=== PATIENT | male | born 1960 | race Caucasian/White ===

== ENCOUNTER 2018-08-19 10:14 | Inpatient (IN) | payer OTHER ==
--- NOTE | 2018-08-19 10:45 | ED ---
SOB HPI - General Chief Complaint: Shortness of Breath Stated Complaint: SOB Time Seen by Provider: 08/19/18 10:14 Source: patient, EMS, RN notes reviewed Mode of arrival: EMS Limitations: no limitations - History of Present Illness Initial Comments: This a 57-year-old male who was brought in from a nursing facility with complaints of shortness of breath decrease oral intake. He also states she's had dark urine no overt chest pain reported. He currently lives in a nursing facility for long-term rehab. MD Complaint: shortness of breath, cough - Related Data Home Medications Medication Instructions Recorded Confirmed Acetaminophen Tab [Tylenol Tab] 650 mg PO Q4H PRN 08/19/18 08/19/18 Albuterol Inhaler [Ventolin Hfa 2 puff INHALATION RT-Q6H PRN 08/19/18 08/19/18 Inhaler] Aspirin EC [Ecotrin] 325 mg PO DAILY@0900 08/19/18 08/19/18 Atorvastatin [Lipitor] 20 mg PO HS@2100 08/19/18 08/19/18 Cholecalciferol [Vitamin D3] 1,000 unit PO DAILY@0900 08/19/18 08/19/18 Docusate [Colace] 100 mg PO DAILY@0908/19/18 08/19/18 Ipratropium-Albuterol Nebulize 3 ml INHALATION RT-Q4H 08/19/18 08/19/18 [Duoneb 0.5 mg-3 mg/3 ml Soln] Ketoconazole 2% Shampoo [Nizoral] 1 applic TOPICAL TUSA 08/19/18 08/19/18 Lactulose 20 gm PO DAILY@0908/19/18 08/19/18 Magnesium Hydroxide [Milk of 2,400 mg PO DAILY PRN 08/19/18 08/19/18 Magnesia] Morphine Sulfate ER [Ms Contin] 15 mg PO Q8H 08/19/18 08/19/18 Mylanta Double Strength 10 ml PO Q4H PRN 08/19/18 08/19/18 Pantoprazole [Protonix] 40 mg PO DAILY@0600 08/19/18 08/19/18 QUEtiapine FUMARATE [SEROquel] 300 mg PO HS@2100 08/19/18 08/19/18 SUMAtriptan SUCCINATE [Imitrex] 100 mg PO Q24H PRN 08/19/18 08/19/18 Tamsulosin [Flomax] 0.4 mg PO HS@2100 08/19/18 08/19/18 clonazePAM [KlonoPIN] 0.5 mg PO Q8H PRN 08/19/18 08/19/18 predniSONE 5 mg PO DAILY@0900 08/19/18 08/19/18 Allergies Allergy/AdvReac Type Severity Reaction Status Date / Time No Known Allergies Allergy Unverified 08/19/18 10:30 Review of Systems ROS Statement: Those systems with pertinent positive or pertinent negative responses have been documented in the HPI. ROS Other: All systems not noted in ROS Statement are negative. Past Medical History Past Medical History: Atrial Fibrillation, COPD, Hyperlipidemia, Pneumonia History of Any Multi-Drug Resistant Organisms: None Reported Past Surgical History: Back Surgery Additional Past Surgical History / Comment(s): tracheostomy & removal Past Psychological History: Anxiety Smoking Status: Former smoker Past Alcohol Use History: None Reported Past Drug Use History: Marijuana General Exam - General Exam Comments Initial Comments: Is a well-developed sec appearing male who is awake and alert with some audible wheezing currently getting an updraft Limitations: no limitations General appearance: alert, in no apparent distress Head exam: Present: atraumatic, normocephalic, normal inspection Eye exam: Present: normal appearance, PERRL, EOMI. Absent: scleral icterus, conjunctival injection, periorbital swelling ENT exam: Present: mucous membranes dry Neck exam: Present: normal inspection. Absent: tenderness, meningismus, lymphadenopathy Respiratory exam: Present: wheezes, accessory muscle use, decreased breath sounds. Absent: respiratory distress, rales, rhonchi, stridor Cardiovascular Exam: Present: normal rhythm, tachycardia, normal heart sounds. Absent: systolic murmur, diastolic murmur, rubs, gallop, clicks GI/Abdominal exam: Present: soft, normal bowel sounds. Absent: distended, tenderness, guarding, rebound, rigid Extremities exam: Present: normal inspection, full ROM, normal capillary refill. Absent: tenderness, pedal edema, joint swelling, calf tenderness Back exam: Present: normal inspection Neurological exam: Present: alert, oriented X3, CN II-XII intact Psychiatric exam: Present: normal affect, normal mood Skin exam: Present: warm, dry, intact, normal color. Absent: rash Course Vital Signs 08/19/18 08/19/18 08/19/18 10:22 11:00 12:10 Temperature 97.9 F Pulse Rate 110 H 82 82 Respiratory 22 28 H 18 Rate Blood Pressure 144/110 149/100 143/95 O2 Sat by Pulse 98 99 100 Oximetry - Reevaluation(s) Reevaluation #1: 08/19/18 14:31 Evaluation finds patient still dyspneic and exertional he dyspneic. Medical Decision Making - Medical Decision Making Patient continues be short of breath in spite of medication. He also demonstrates evidence of pneumonia. He was given IV medication the emergency department given aggressive emergency department he was completely 1 upon arrival repeat was ordered. Patient will be admitted I did discuss case with Dr. Todd. - Lab Data Result diagrams: 08/19/18 10:40 08/19/18 10:40 Lab Results 08/19/18 08/19/18 08/19/18 Range/Units 10:40 10:40 10:40 WBC 8.0 (3.8-10.6) k/uL RBC 4.08 L (4.30-5.90) m/uL Hgb 12.3 L (13.0-17.5) gm/dL Hct 40.1 (39.0-53.0) % MCV 98.4 (80.0-100.0) fL MCH 30.2 (25.0-35.0) pg MCHC 30.7 L (31.0-37.0) g/dL RDW 13.0 (11.5-15.5) % Plt Count 313 (150-450) k/uL Neutrophils % 75 % Lymphocytes % 13 % Monocytes % 6 % Eosinophils % 2 % Basophils % 1 % Neutrophils # 6.0 (1.3-7.7) k/uL Lymphocytes # 1.1 (1.0-4.8) k/uL Monocytes # 0.5 (0-1.0) k/uL Eosinophils # 0.1 (0-0.7) k/uL Basophils # 0.1 (0-0.2) k/uL Hypochromasia Marked PT (9.0-12.0) sec INR (<1.2) APTT (22.0-30.0) sec Sodium 144 (137-145) mmol/L Potassium 5.0 (3.5-5.1) mmol/L Chloride 94 L (98-107) mmol/L Carbon Dioxide 41 H* (22-30) mmol/L Anion Gap 9 mmol/L BUN 14 (9-20) mg/dL Creatinine 0.47 L (0.66-1.25) mg/dL Est GFR (CKD-EPI)AfAm >90 (>60 ml/min/1.73 sqM) Est GFR (CKD-EPI)NonAf >90 (>60 ml/min/1.73 sqM) Glucose 157 H (74-99) mg/dL Calcium 9.0 (8.4-10.2) mg/dL Magnesium 1.9 (1.6-2.3) mg/dL Total Bilirubin 0.8 (0.2-1.3) mg/dL AST 27 (17-59) U/L ALT 20 L (21-72) U/L Alkaline Phosphatase 92 (38-126) U/L Total Creatine Kinase 47 L (55-170) U/L CK-MB (CK-2) 1.0 (0.0-2.4) ng/mL CK-MB (CK-2) Rel Index 2.1 Troponin I 0.027 (0.000-0.034) ng/mL NT-Pro-B Natriuret Pep pg/mL Total Protein 6.7 (6.3-8.2) g/dL Albumin 3.5 (3.5-5.0) g/dL 08/19/18 08/19/18 Range/Units 10:40 10:40 WBC (3.8-10.6) k/uL RBC (4.30-5.90) m/uL Hgb (13.0-17.5) gm/dL Hct (39.0-53.0) % MCV (80.0-100.0) fL MCH (25.0-35.0) pg MCHC (31.0-37.0) g/dL RDW (11.5-15.5) % Plt Count (150-450) k/uL Neutrophils % % Lymphocytes % % Monocytes % % Eosinophils % % Basophils % % Neutrophils # (1.3-7.7) k/uL Lymphocytes # (1.0-4.8) k/uL Monocytes # (0-1.0) k/uL Eosinophils # (0-0.7) k/uL Basophils # (0-0.2) k/uL Hypochromasia PT 11.0 (9.0-12.0) sec INR 1.0 (<1.2) APTT 22.6 (22.0-30.0) sec Sodium (137-145) mmol/L Potassium (3.5-5.1) mmol/L Chloride (98-107) mmol/L Carbon Dioxide (22-30) mmol/L Anion Gap mmol/L BUN (9-20) mg/dL Creatinine (0.66-1.25) mg/dL Est GFR (CKD-EPI)AfAm (>60 ml/min/1.73 sqM) Est GFR (CKD-EPI)NonAf (>60 ml/min/1.73 sqM) Glucose (74-99) mg/dL Calcium (8.4-10.2) mg/dL Magnesium (1.6-2.3) mg/dL Total Bilirubin (0.2-1.3) mg/dL AST (17-59) U/L ALT (21-72) U/L Alkaline Phosphatase (38-126) U/L Total Creatine Kinase (55-170) U/L CK-MB (CK-2) (0.0-2.4) ng/mL CK-MB (CK-2) Rel Index Troponin I (0.000-0.034) ng/mL NT-Pro-B Natriuret Pep 268 pg/mL Total Protein (6.3-8.2) g/dL Albumin (3.5-5.0) g/dL - EKG Data -: EKG Interpreted by De EKG shows normal: sinus rhythm (Sinus rhythm with PACs NC interval 128 QRS duration 92 the ventricular rate was 89 QT since QTC 350/425 left exodeviation incomplete right bundle-branch block) - Radiology Data Radiology results: report reviewed (I did review the imaging and report evidence of bilateral basilar infiltrates.), image reviewed Critical Care Time Critical Care Time: Yes Critical Care Time: 33 minutes of critical care time total which does include initial presentation with history physical labs x-rays discussed with paramedics regarding the treatment rendered. Reevaluation of the patient several occasions. Review of labs and x-rays discussed with the admitting physician review of old charting and documentation of the above Disposition Clinical Impression: Acute exacerbation of chronic obstructive airways disease, Adult respiratory distress syndrome, Bilateral pneumonia Disposition: ADMITTED IP TO THIS HOSP Condition: Serious Referrals: Cortez Todd MD [Primary Care Provider] - 1-2 days
[2018-08-19] MEDS ORDERED: SODIUM CHLORIDE 0.9% 1,000 ML IV STA (10:49)
[2018-08-19 11:07] LABS: Basophils # (A) 0.1 k/uL (0-0.2); Basophils % (A) 1 %; Eosinophils # (A) 0.1 k/uL (0-0.7); Eosinophils % (A) 2 %; HCT 40.1 % (39.0-53.0); HGB 12.3 gm/dL (13.0-17.5); Hypochromasia Marked; Lymphocytes # (A) 1.1 k/uL (1.0-4.8); Lymphocytes % (A) 13 %; MCH 30.2 pg (25.0-35.0); MCHC 30.7 g/dL (31.0-37.0); MCV 98.4 fL (80.0-100.0); Mean Platelet Volume 7.2; Monocytes # (A) 0.5 k/uL (0-1.0); Monocytes % (A) 6 %; Neutrophils % (A) 75 %; Platelet Count 313 k/uL (150-450); RBC 4.08 m/uL (4.30-5.90)
--- NOTE | 2018-08-19 11:11 | XR ---
EXAMINATION TYPE: XR chest 2V DATE OF EXAM: 08/19/2018 COMPARISON: 10/28/2009 HISTORY: Difficulty breathing history of emphysema TECHNIQUE: Frontal and lateral views of the chest are obtained. FINDINGS: There is hyperinflation flattening the diaphragms compatible COPD. Patchy bibasilar infilt rates are present, likely on the basis of atelectasis. Bibasilar pneumonia could be considered. Follo w-up is recommended and correlation with clinical findings is recommended. The heart size is normal. Pulmonary vasculature is normal. IMPRESSION: 1. Bibasilar infiltrates. Atelectasis and pneumonia are within the differential. Clinical correlation and follow-up is recommended. 2. COPD
[2018-08-19] MEDS ORDERED: KETOROLAC 30 MG/ML 1 ML VIAL IVP STA (11:22)
[2018-08-19 11:29] LABS: ALT 20 U/L (21-72); AST 27 U/L (17-59); Albumin 3.5 g/dL (3.5-5.0); Alkaline Phosphatase 92 U/L (38-126); Blood Urea Nitrogen 14 mg/dL (9-20); Chloride 94 mmol/L (98-107); Glucose 157 mg/dL (74-99); Magnesium 1.9 mg/dL (1.6-2.3); Sodium 144 mmol/L (137-145); Total Bilirubin 0.8 mg/dL (0.2-1.3); Total Protein 6.7 g/dL (6.3-8.2)
[2018-08-19 11:31] LABS: Partial Thromboplastin Time 22.6 sec (22.0-30.0)
[2018-08-19 11:35] LABS: Anion Gap 9 mmol/L
[2018-08-19 11:38] LABS: Carbon Dioxide 41 mmol/L (22-30)
[2018-08-19 11:43] LABS: Troponin I 0.027 ng/mL (0.000-0.034)
[2018-08-19] MEDS ORDERED: PIPERACILLIN-TAZOBACTAM 3.375 GM in SODIUM CHLORIDE 0.9% 100 ML IVPB STA (14:08)
[2018-08-19] MEDS ORDERED: ACETAMINOPHEN TAB 500 MG TAB PO STA (14:28)
[2018-08-19] MEDS ORDERED: IPRATROPIUM-ALBUTEROL 3 ML NEB INHALATION STA ×2 (14:29→14:32)
[2018-08-19] MEDS ORDERED: MAGNESIUM SULFATE-D5W PMX 1 GM in DEXTROSE/WATER 1 100ML.BAG IVPB ONE (14:29)
[2018-08-19] MEDS ORDERED: PNEUMONIA PROTOCOL UTILIZED 1 EACH MISC PO PRN (14:34)
[2018-08-19] MEDS ORDERED: LEVOFLOXACIN 750MG-D5W PMX 750 MG in DEXTROSE/WATER 1 150ML.BAG IVPB STA (14:34)
[2018-08-19] MEDS ORDERED: MAG HYDROX/AL HYDROX/SIMETH 30 ML CUP PO PRN (14:39)
[2018-08-19] MEDS ORDERED: MAGNESIUM HYDROXIDE 2,400 MG/10 ML CUP PO PRN (14:39)
[2018-08-19] MEDS ORDERED: ACETAMINOPHEN TAB 325 MG TAB PO PRN (14:39)
[2018-08-19] MEDS: MORPHINE SULFATE ER 15 MG TABLET PO SCH (17:17)
[2018-08-19] MEDS: clonazePAM 0.5 MG TAB PO PRN (17:17)
[2018-08-19 17:36] VITALS: BMI 26.7
[2018-08-19] MEDS: IPRATROPIUM-ALBUTEROL 3 ML NEB INHALATION SCH ×3 (19:22→23:37)
[2018-08-19] MEDS: ATORVASTATIN 20 MG TAB PO SCH (20:27)
[2018-08-19] MEDS: TAMSULOSIN 0.4 MG CAP.ER.24H PO SCH (20:27)
[2018-08-19] MEDS: QUEtiapine 100 MG TAB PO SCH (20:27)
[2018-08-19] MEDS: PIPERACILLIN-TAZOBACTAM 3.375 GM in SODIUM CHLORIDE 0.9% 100 ML IVPB SCH (23:47)
[2018-08-20] MEDS: IPRATROPIUM-ALBUTEROL 3 ML NEB INHALATION SCH ×5 (03:31→19:41)
[2018-08-20] MEDS: MORPHINE SULFATE ER 15 MG TABLET PO SCH ×4 (03:55→23:11)
[2018-08-20] MEDS: PANTOPRAZOLE 40 MG TABLET PO SCH (06:31)
--- NOTE | 2018-08-20 07:10 | XR ---
EXAMINATION TYPE: XR chest 2V DATE OF EXAM: 08/20/2018 COMPARISON: 08/19/2018 HISTORY: Difficulty breathing. TECHNIQUE: Frontal and lateral views of the chest are obtained. FINDINGS: There is near complete resolution of the left basilar probable subsegmental atelectasis ho wever a right lower lobe opacity remains on both the frontal and lateral views. Pulmonary per inflati on, flattening the diaphragms and tapering of the pulmonary vasculature are all compatible with under lying COPD. Cardiomediastinal silhouette is within normal limits of size. Osseous structures are krissy sly intact. IMPRESSION: Similar right lower lobe opacity suspicious for pneumonia with near complete resolution of the left basilar subsegmental atelectasis with extensive underlying emphysema.
[2018-08-20] MEDS: ASPIRIN 325 MG TAB PO SCH (07:47)
[2018-08-20] MEDS: PIPERACILLIN-TAZOBACTAM 3.375 GM in SODIUM CHLORIDE 0.9% 100 ML IVPB SCH ×3 (07:47→23:11)
[2018-08-20] MEDS: CHOLECALCIFEROL 1,000 UNIT TAB PO SCH (07:48)
[2018-08-20] MEDS: LACTULOSE 20 GM/30 ML CUP PO SCH (07:48)
[2018-08-20] MEDS: DOCUSATE 100 MG CAP PO SCH (07:48)
[2018-08-20 10:10] LABS: ALT 25 U/L (21-72); AST 15 U/L (17-59); Alkaline Phosphatase 78 U/L (38-126); Blood Urea Nitrogen 19 mg/dL (9-20); Calcium 8.7 mg/dL (8.4-10.2); Chloride 95 mmol/L (98-107); Glucose 143 mg/dL (74-99); Magnesium 2.1 mg/dL (1.6-2.3); Potassium 4.2 mmol/L (3.5-5.1); Sodium 144 mmol/L (137-145); Total Bilirubin 0.4 mg/dL (0.2-1.3); Total Protein 5.6 g/dL (6.3-8.2)
[2018-08-20 10:16] LABS: Anion Gap 4 mmol/L
[2018-08-20 10:18] LABS: Carbon Dioxide 45 mmol/L (22-30)
[2018-08-20] MEDS: SUMAtriptan SUCCINATE 50 MG TAB PO PRN (12:23)
--- NOTE | 2018-08-20 12:26 | P.HPIM ---
History of Present Illness H&P Date: 08/20/18 Chief Complaint: Short of breath This is a 57-year-old white male patient well known to me. He has severe COPD that's oxygen dependent. He lives over at [facility] on the [facility]. He reports that he was there are having a malfunction of his OxyContin straight or, at the staff insisted they keep using that. He reports that he desaturated down to 60%. He also reports that he's been sick with increasing cough and shortness of breath lately. He was sent to the emergency room for further evaluation after being more short of breath. He was started on Levaquin and Zosyn. This morning, he denies any chest pains, pressures, nausea or vomiting. He had a large stool today but he had been constipated over the past few days. His shortness of breath he says is stable and improved from 1 day ago. 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 Smoking Status: Former smoker Past Alcohol Use History: None Reported Past Drug Use History: Marijuana - Past Family History Mother Family Medical History: COPD Medications and Allergies Home Medications Medication Instructions Recorded Confirmed Type Acetaminophen Tab [Tylenol Tab] 650 mg PO Q4H PRN 08/19/18 08/19/18 History Albuterol Inhaler [Ventolin Hfa 2 puff INHALATION RT-Q6H PRN 08/19/18 08/19/18 History Inhaler] Aspirin EC [Ecotrin] 325 mg PO DAILY@0900 08/19/18 08/19/18 History Atorvastatin [Lipitor] 20 mg PO HS@2100 08/19/18 08/19/18 History Cholecalciferol [Vitamin D3] 1,000 unit PO DAILY@0900 08/19/18 08/19/18 History Docusate [Colace] 100 mg PO DAILY@0900 08/19/18 08/19/18 History Ipratropium-Albuterol Nebulize 3 ml INHALATION RT-Q4H 08/19/18 08/19/18 History [Duoneb 0.5 mg-3 mg/3 ml Soln] Ketoconazole 2% Shampoo [Nizoral] 1 applic TOPICAL TUSA 08/19/18 08/19/18 History Lactulose 20 gm PO DAILY@0900 08/19/18 08/19/18 History Magnesium Hydroxide [Milk of 2,400 mg PO DAILY PRN 08/19/18 08/19/18 History Magnesia] Morphine Sulfate ER [Ms Contin] 15 mg PO Q8H 08/19/18 08/19/18 History Mylanta Double Strength 10 ml PO Q4H PRN 08/19/18 08/19/18 History Pantoprazole [Protonix] 40 mg PO DAILY@0600 08/19/18 08/19/18 History QUEtiapine FUMARATE [SEROquel] 300 mg PO HS@2100 08/19/18 08/19/18 History SUMAtriptan SUCCINATE [Imitrex] 100 mg PO Q24H PRN 08/19/18 08/19/18 History Tamsulosin [Flomax] 0.4 mg PO HS@2100 08/19/18 08/19/18 History clonazePAM [KlonoPIN] 0.5 mg PO Q8H PRN 08/19/18 08/19/18 History predniSONE 5 mg PO DAILY@0900 08/19/18 08/19/18 History Allergies Allergy/AdvReac Type Severity Reaction Status Date / Time No Known Allergies Allergy Verified 08/19/18 17:25 Physical Exam Vitals: Vital Signs Temp Pulse Pulse Pulse Resp BP BP 08/20/18 11:26 76 08/20/18 11:15 76 08/20/18 07:50 16 08/20/18 07:46 92 08/20/18 07:33 92 08/20/18 05:35 98.5 F 91 24 117/75 08/20/18 03:42 76 08/20/18 03:32 76 08/19/18 23:55 98.1 F 81 22 125/79 08/19/18 23:47 72 08/19/18 23:37 71 08/19/18 20:31 20 08/19/18 19:33 84 08/19/18 19:22 80 08/19/18 16:39 98.2 F 87 18 143/97 08/19/18 16:00 98.0 F 80 18 143/86 08/19/18 15:59 84 08/19/18 15:49 80 08/19/18 15:00 98.1 F 77 18 137/92 Pulse Ox 08/20/18 11:26 08/20/18 11:15 08/20/18 07:50 08/20/18 07:46 08/20/18 07:33 08/20/18 05:35 95 08/20/18 03:42 08/20/18 03:32 08/19/18 23:55 95 08/19/18 23:47 08/19/18 23:37 08/19/18 20:31 95 08/19/18 19:33 08/19/18 19:22 08/19/18 16:39 90 L 08/19/18 16:00 95 08/19/18 15:59 08/19/18 15:49 08/19/18 15:00 98 Intake and Output 08/19/18 08/20/18 08/20/18 22:59 06:59 14:59 Intake Total 100 Output Total 300 Balance -300 100 Intake: Oral 100 Output: Urine 300 Other: Voiding Method Bedside Commode Urinal # Voids 2 Weight 77.564 kg GENERAL: Thin and no obvious distress at this time HEAD: Atraumatic, normocephalic. EYES: Pupils equal round and reactive to light, extraocular movements intact, sclera anicteric, conjunctiva are normal. ENT:nares patent, oropharynx clear without exudates. Moist mucous membranes. NECK: Normal range of motion, supple without lymphadenopathy or JVD, no thyromegaly LUNGS: Breath sounds worse with severely diminished air exchange bilaterally consistent with his underlying COPD. Minimal wheezes noted today. This is a new finding. HEART: Regular rate and rhythm without murmurs, rubs or gallops.S1S2 Normal ABDOMEN: Soft, nontender, normoactive bowel sounds. No guarding, no rebound. No masses appreciated. EXTREMITIES: Normal range of motion, no pitting or edema. No clubbing or cyanosis. NEUROLOGICAL: Cranial nerves II through XII grossly intact. Normal speech, normal gait. PSYCH: Normal mood, normal affect. SKIN: Warm, Dry, normal turgor, no rashes or lesions noted. Results CBC & Chem 7: 08/19/18 10:40 08/20/18 09:27 Labs: Abnormal Lab Results - Last 24 Hours (Table) 08/20/18 Range/Units 09:27 Chloride 95 L (98-107) mmol/L Carbon Dioxide 45 H* (22-30) mmol/L Creatinine 0.65 L (0.66-1.25) mg/dL Glucose 143 H (74-99) mg/dL AST 15 L (17-59) U/L Total Protein 5.6 L (6.3-8.2) g/dL Albumin 3.0 L (3.5-5.0) g/dL Chest x-ray: report reviewed (Similar right lower lobe opacity suspicious for pneumonia with near complete resolution of the left basilar subsegmental atelectasis and extensive emphysema) Thrombosis Risk Factor Assmnt - DVT/VTE Prophylaxis DVT/VTE Prophylaxis: Mechanical Prophylaxis ordered - Choose All That Apply Each Factor Represents 1 point: Abnormal pulmonary function (COPD), Age 41-60 years Thrombosis Risk Factor Assessment Total Risk Factor Score: 2 Thrombosis Risk Factor Assessment Level: Low Risk Assessment and Plan (1) Atrial fibrillation Current Visit: Yes Status: Acute Code(s): I48.91 - UNSPECIFIED ATRIAL FIBRILLATION SNOMED Code(s): 67912345 (2) Oxygen dependent Current Visit: Yes Status: Acute Code(s): Z99.81 - DEPENDENCE ON SUPPLEMENTAL OXYGEN SNOMED Code(s): 882289239933 (3) Steroid dependent Current Visit: Yes Status: Acute Code(s): TBS8364 - SNOMED Code(s): 78688393 (4) Anxiety Current Visit: Yes Status: Acute Code(s): F41.9 - ANXIETY DISORDER, UNSPECIFIED SNOMED Code(s): 52044413 (5) Acute exacerbation of chronic obstructive airways disease Current Visit: Yes Status: Acute Code(s): J44.1 - CHRONIC OBSTRUCTIVE PULMONARY DISEASE W (ACUTE) EXACERBATION SNOMED Code(s): 987385372 (6) Adult respiratory distress syndrome Current Visit: Yes Status: Acute Code(s): J80 - ACUTE RESPIRATORY DISTRESS SYNDROME SNOMED Code(s): 32340965 (7) Bilateral pneumonia Current Visit: Yes Status: Acute Code(s): J18.9 - PNEUMONIA, UNSPECIFIED ORGANISM SNOMED Code(s): 641770061 (8) Hypoxemia Current Visit: Yes Status: Acute Code(s): R09.02 - HYPOXEMIA SNOMED Code(s ): 257625757 Plan: He'll continue on his oxygen, Zosyn, Levaquin, restart steroids, consult, neurology and continue updraft treatments of DuoNeb. Repeat The labs in a.m. He will be reevaluated in 24 hours. .
[2018-08-20] MEDS: FAMOTIDINE 20 MG TAB PO SCH (13:14)
[2018-08-20] MEDS: LEVOFLOXACIN 750 MG TAB PO SCH (16:00)
--- NOTE | 2018-08-20 16:15 | P.CNPUL ---
History of Present Illness Consult date: 08/20/18 Requesting physician: Cortez Todd Reason for consult: dyspnea, cough, COPD, pneumonia, abnormal CXR/CT Chief complaint: Shortness of breath, decreased oral intake, History of present illness: This is a 57-year-old white male patient of Dr. Todd, with past medical history of severe COPD, stage IV, with chronic hypoxemic respiratory failure, with a baseline FEV1 of 0.54 L or 16% of predicted, and the diffusion capacity of 24% of predicted, chronic atrial fibrillation, hyperlipidemia, previous episodes of pneumonia, BPH, anxiety, former smoker. Patient resides in the long -term care [facility], [facility]. Patient was brought into the emergency department on 08/19/2018 per EMS for evaluation of increasing shortness of breath, cough, decreased oral intake. Patient had the noted to have concentrated urine. No chest pain. Patient was in significant amount of respiratory distress on presentation, quite bronchospastic, using accessory muscles of breathing. Initial chest x-ray showed bibasilar infiltrates, could not exclude pneumonia, a background of COPD. Follow-up chest x-ray on 2018 showed similar right lower lobe opacity suspicious for pneumonia with near complete resolution of the left basilar subsegmental atelectasis with extensive underlying emphysema. Afebrile, labs were negative for leukocytosis, white blood cell count was 8.0, hemoglobin is 12.3, sodium is 144, potassium is 5.0, chloride is 94, CO2 is 41, B1 is 14 and creatinine 0.47, troponin was 0.0-7, proBNP was within normal limits at 268, influenza was negative. Patient was started on empiric antibiotics in the form of Levaquin and Zosyn, nebulized bronchodilators, and this consult was initiated. Review of Systems All systems: negative Constitutional: Denies chills, Denies fever Eyes: denies blurred vision, denies pain Ears, nose, mouth and throat: Denies headache, Denies sore throat Cardiovascular: Reports dyspnea on exertion, Denies chest pain, Denies shortness of breath Respiratory: Reports congestion, Reports dyspnea, Reports home oxygen, Reports respiratory infections, Reports wheezing, Denies cough Gastrointestinal: Denies abdominal pain, Denies diarrhea, Denies nausea, Denies vomiting Musculoskeletal: Denies myalgias Integumentary: Denies pruritus, Denies rash Neurological: Denies numbness, Denies weakness Psychiatric: Denies anxiety, Denies depression Endocrine: Denies fatigue, Denies weight change Past Medical History Past Medical History: Atrial Fibrillation, COPD (Severe, oxygen and steroid dependent end-stage), Hyperlipidemia, Pneumonia, Prostate Disorder (BPH) History of Any Multi-Drug Resistant Organisms: None Reported Past Surgical History: Back Surgery Additional Past Surgical History / Comment(s): tracheostomy & removal Past Anesthesia/Blood Transfusion Reactions: No Reported Reaction Past Psychological History: Anxiety Additional Psychological History / Comment(s): Lives in [facility] Smoking Status: Former smoker Past Alcohol Use History: None Reported Past Drug Use History: Marijuana - Past Family History Mother Family Medical History: COPD Medications and Allergies Home Medications Medication Instructions Recorded Confirmed Type Acetaminophen Tab [Tylenol Tab] 650 mg PO Q4H PRN 08/19/18 08/19/18 History Albuterol Inhaler [Ventolin Hfa 2 puff INHALATION RT-Q6H PRN 08/19/18 08/19/18 History Inhaler] Aspirin EC [Ecotrin] 325 mg PO DAILY@0900 08/19/18 08/19/18 History Atorvastatin [Lipitor] 20 mg PO HS@2100 08/19/18 08/19/18 History Cholecalciferol [Vitamin D3] 1,000 unit PO DAILY@0900 08/19/18 08/19/18 History Docusate [Colace] 100 mg PO DAILY@0900 08/19/18 08/19/18 History Ipratropium-Albuterol Nebulize 3 ml INHALATION RT-Q4H 08/19/18 08/19/18 History [Duoneb 0.5 mg-3 mg/3 ml Soln] Ketoconazole 2% Shampoo [Nizoral] 1 applic TOPICAL TUSA 08/19/18 08/19/18 History Lactulose 20 gm PO DAILY@0900 08/19/18 08/19/18 History Magnesium Hydroxide [Milk of 2,400 mg PO DAILY PRN 08/19/18 08/19/18 History Magnesia] Morphine Sulfate ER [Ms Contin] 15 mg PO Q8H 08/19/18 08/19/18 History Mylanta Double Strength 10 ml PO Q4H PRN 08/19/18 08/19/18 History Pantoprazole [Protonix] 40 mg PO DAILY@0600 08/19/18 08/19/18 History QUEtiapine FUMARATE [SEROquel] 300 mg PO HS@2100 08/19/18 08/19/18 History SUMAtriptan SUCCINATE [Imitrex] 100 mg PO Q24H PRN 08/19/18 08/19/18 History Tamsulosin [Flomax] 0.4 mg PO HS@2100 08/19/18 08/19/18 History clonazePAM [KlonoPIN] 0.5 mg PO Q8H PRN 08/19/18 08/19/18 History predniSONE 5 mg PO DAILY@0900 08/19/18 08/19/18 History Allergies Allergy/AdvReac Type Severity Reaction Status Date / Time No Known Allergies Allergy Verified 08/19/18 17:25 Physical Exam Vitals: Vital Signs Temp Pulse Pulse Pulse Resp BP BP 08/20/18 15:46 88 08/20/18 15:30 88 08/20/18 15:00 97.4 F L 86 22 100/72 08/20/18 11:26 76 08/20/18 11:15 76 08/20/18 07:50 16 08/20/18 07:46 92 08/20/18 07:33 92 08/20/18 05:35 98.5 F 91 24 117/75 08/20/18 03:42 76 08/20/18 03:32 76 08/19/18 23:55 98.1 F 81 22 125/79 08/19/18 23:47 72 08/19/18 23:37 71 08/19/18 20:31 20 08/19/18 19:33 84 08/19/18 19:22 80 08/19/18 16:39 98.2 F 87 18 143/97 08/19/18 16:00 98.0 F 80 18 143/86 08/19/18 15:59 84 Pulse Ox 08/20/18 15:46 08/20/18 15:30 08/20/18 15:00 100 08/20/18 11:26 08/20/18 11:15 08/20/18 07:50 08/20/18 07:46 08/20/18 07:33 08/20/18 05:35 95 08/20/18 03:42 08/20/18 03:32 08/19/18 23:55 95 08/19/18 23:47 08/19/18 23:37 08/19/18 20:31 95 08/19/18 19:33 08/19/18 19:22 08/19/18 16:39 90 L 08/19/18 16:00 95 08/19/18 15:59 Intake and Output 08/20/18 08/20/18 08/20/18 06:59 14:59 22:59 Intake Total 100 320 Balance 100 320 Intake: Oral 100 320 Other: Voiding Method Urinal Urinal # Voids 2 1 # Bowel Movements 1 GENERAL EXAM: Alert, pleasant, 57-year-old white male, on 4 L per nasal cannula comfortable in no apparent distress. HEAD: Normocephalic/atraumatic. EYES: Normal reaction of pupils, equal size. Conjunctiva pink, sclera white. NOSE: Clear with pink turbinates. THROAT: No erythema or exudates. NECK: No masses, no JVD, no thyroid enlargement, no adenopathy. CHEST: No chest wall deformity. Symmetrical expansion. LUNGS: Equal air entry with no crackles, with end expiratory wheezes, diminished breath sounds bilaterally CVS: Regular rate and rhythm, normal S1 and S2, no gallops, no murmurs, no rubs ABDOMEN: Soft, nontender. No hepatosplenomegaly, normal bowel sounds, no guarding or rigidity. EXTREMITIES: No clubbing, no edema, no cyanosis, 2+ pulses and upper and lower extremities. MUSCULOSKELETAL: Muscle strength and tone normal. SPINE: No scoliosis or deformity SKIN: No rashes CENTRAL NERVOUS SYSTEM: Alert and oriented -3. No focal deficits, tone is normal in all 4 extremities. PSYCHIATRIC: Alert and oriented -3. Appropriate affect. Intact judgment and insight. Results - Laboratory Findings CBC and BMP: 08/19/18 10:40 08/20/18 09:27 PT/INR, D-dimer PT 11.0 sec (9.0-12.0) 08/19/18 10:40 INR 1.0 (<1.2) 08/19/18 10:40 Abnormal lab findings: Abnormal Labs 08/19/18 08/19/18 08/19/18 10:40 10:40 10:40 RBC 4.08 L Hgb 12.3 L MCHC 30.7 L Chloride 94 L Carbon Dioxide 41 H* Creatinine 0.47 L Glucose 157 H AST ALT 20 L Total Creatine Kinase 47 L Total Protein Albumin 08/20/18 09:27 RBC Hgb MCHC Chloride 95 L Carbon Dioxide 45 H* Creatinine 0.65 L Glucose 143 H AST 15 L ALT Total Creatine Kinase Total Protein 5.6 L Albumin 3.0 L - Diagnostic Findings Chest x-ray: report reviewed, image reviewed Additional studies: EKG reviewed Assessment and Plan Plan: Assessment: #1. Acute on chronic hypoxemic and hypercapnic respiratory failure related to COPD exacerbation related to a possibility of healthcare acquired pneumonia, chest x-ray showed bibasilar infiltrates suspicious for pneumonia. #2. End-stage oxygen-dependent and steroid-dependent COPD, stage IV, with underlying FEV1 of 0.54 L or 60% of predicted, and diffusion capacity of 24% #3. History of paroxysmal atrial fibrillation, currently in sinus rhythm #4. Nicotine dependence, currently in remission #5. Previous episodes of pneumonia #6. PTH #7. Hyperlipidemia #8. History of ventilatory dependent respiratory failure requiring tracheostomy placement, and patient had liberation from ventilatory support, and decannulation #9. Anxiety #10. Resident of the extended care facility, lives at the [facility] on the [facility] Plan: Continue current antibiotic coverage, send a sputum for culture, currently afebrile, in no apparent distress, continue nebulized treatments, we will add Solu-Medrol 40 mg every 8 hours. Chest x-rays have been reviewed with Dr. Pugh, showed bibasilar infiltrates right greater than the left, suspicious for pneumonic infiltrates. Continue GI and DVT prophylaxis I performed a history & physical examination of the patient and discussed their management with my nurse practitioner, Cynthia Stacy. I reviewed the nurse practitioner's note and agree with the documented findings and plan of care. Lung sounds are positive for end expiratory wheezes, diminished breath sounds, prolongation of expiratory phase. The findings and the impression was discussed with the patient. I attest to the documentation by the nurse practitioner. Time with Patient: Greater than 30
[2018-08-20] MEDS: methylPREDNISolone SOD SUCCI 40 MG/ML 1 ML VIAL IV SCH ×2 (16:26→23:10)
[2018-08-20] MEDS: QUEtiapine 100 MG TAB PO SCH (20:26)
[2018-08-20] MEDS: TAMSULOSIN 0.4 MG CAP.ER.24H PO SCH (20:27)
[2018-08-20] MEDS: ATORVASTATIN 20 MG TAB PO SCH (20:27)
[2018-08-20] MEDS: clonazePAM 0.5 MG TAB PO PRN (20:32)
[2018-08-20 23:11] LABS: Glucose,Whole Blood 157 mg/dL (75-99)
[2018-08-21] MEDS: IPRATROPIUM-ALBUTEROL 3 ML NEB INHALATION SCH ×7 (00:33→23:39)
[2018-08-21] MEDS: PANTOPRAZOLE 40 MG TABLET PO SCH (05:31)
[2018-08-21] MEDS: FAMOTIDINE 20 MG TAB PO SCH (07:37)
[2018-08-21] MEDS: PIPERACILLIN-TAZOBACTAM 3.375 GM in SODIUM CHLORIDE 0.9% 100 ML IVPB SCH ×2 (07:37→16:27)
[2018-08-21] MEDS: methylPREDNISolone SOD SUCCI 40 MG/ML 1 ML VIAL IV SCH ×2 (07:37→16:27)
[2018-08-21] MEDS: DOCUSATE 100 MG CAP PO SCH (07:37)
[2018-08-21] MEDS: LACTULOSE 20 GM/30 ML CUP PO SCH (07:37)
[2018-08-21] MEDS: ASPIRIN 325 MG TAB PO SCH (07:37)
[2018-08-21] MEDS: CHOLECALCIFEROL 1,000 UNIT TAB PO SCH (07:37)
[2018-08-21] MEDS: MORPHINE SULFATE ER 15 MG TABLET PO SCH ×2 (07:37→16:27)
[2018-08-21 09:28] LABS: Basophils % (A) 0 %; Eosinophils % (A) 0 %; HCT 38.3 % (39.0-53.0); HGB 11.5 gm/dL (13.0-17.5); Hypochromasia Marked; Lymphocytes # (A) 0.5 k/uL (1.0-4.8); Lymphocytes % (A) 8 %; MCH 30.4 pg (25.0-35.0); MCHC 29.9 g/dL (31.0-37.0); MCV 101.7 fL (80.0-100.0); Mean Platelet Volume 7.3; Monocytes # (A) 0.4 k/uL (0-1.0); Monocytes % (A) 6 %; Neutrophils # (A) 5.5 k/uL (1.3-7.7); Neutrophils % (A) 84 %; Platelet Count 336 k/uL (150-450); RBC 3.77 m/uL (4.30-5.90); RDW 13.1 % (11.5-15.5); WBC 6.6 k/uL (3.8-10.6)
[2018-08-21 09:44] LABS: ALT 24 U/L (21-72); AST 11 U/L (17-59); Albumin 3.1 g/dL (3.5-5.0); Alkaline Phosphatase 75 U/L (38-126); Blood Urea Nitrogen 21 mg/dL (9-20); Calcium 8.7 mg/dL (8.4-10.2); Chloride 95 mmol/L (98-107); Glucose 145 mg/dL (74-99); Magnesium 2.2 mg/dL (1.6-2.3); Potassium 4.5 mmol/L (3.5-5.1); Sodium 145 mmol/L (137-145); Total Bilirubin 0.3 mg/dL (0.2-1.3); Total Protein 5.9 g/dL (6.3-8.2)
[2018-08-21 09:50] LABS: Anion Gap 4 mmol/L
[2018-08-21 09:55] LABS: Carbon Dioxide 46 mmol/L (22-30)
--- NOTE | 2018-08-21 12:59 | P.PN ---
Subjective This is a 57-year-old white male patient well known to me. He has severe COPD that's oxygen dependent. He lives over at [facility] on the [facility]. He reports that he was there are having a malfunction of his OxyContin straight or, at the staff insisted they keep using that. He reports that he desaturated down to 60%. He also reports that he's been sick with increasing cough and shortness of breath lately. He was sent to the emergency room for further evaluation after being more short of breath. He was started on Levaquin and Zosyn. This morning, he denies any chest pains, pressures, nausea or vomiting. He had a large stool today but he had been constipated over the past few days. His shortness of breath he says is stable and improved from 1 day ago. 08/21/2018 Patient is doing well this morning. Pulmonology team started him on some Solu- Medrol 40 mg every 8. He continues on antibiotics of Levaquin and Zosyn. He denies any chest pains, pressures, or shortness breath at rest at this time. He has minimal cough. He denies any diarrhea or constipation this time. He is feeling much improved. Objective - Vital Signs Vital signs: Vital Signs Temp 97.9 F 08/21/18 06:15 Pulse 84 08/21/18 12:13 Resp 18 08/21/18 08:00 BP 126/86 08/21/18 06:15 Pulse Ox 99 08/21/18 06:15 Intake & Output 08/20/18 08/21/18 08/21/18 18:59 06:59 18:59 Intake Total 320 120 Output Total 200 0 400 Balance 120 120 -400 Intake: Oral 320 120 Output: Urine 200 0 400 Other: Voiding Method Urinal Urinal # Voids 1 1 # Bowel Movements 1 1 - Exam GENERAL: Thin and no obvious distress at this time NECK: Normal range of motion, supple without lymphadenopathy or JVD, no thyromegaly LUNGS: Breath sounds worse with severely diminished air exchange bilaterally consistent with his underlying COPD. No wheezes today. This improved from 1 day ago HEART: Regular rate and rhythm without murmurs, rubs or gallops.S1S2 Normal ABDOMEN: Soft, nontender, normoactive bowel sounds. No guarding, no rebound. No masses appreciated. EXTREMITIES: Normal range of motion, no pitting or edema. No clubbing or cyanosis. NEUROLOGICAL: Cranial nerves II through XII grossly intact. Normal speech, normal gait. PSYCH: Normal mood, normal affect. SKIN: Warm, Dry, normal turgor, no rashes or lesions noted. - Labs CBC & Chem 7: 08/21/18 09:11 08/21/18 09:11 Labs: Abnormal Lab Results - Last 24 Hours (Table) 08/20/18 08/21/18 08/21/18 Range/Units 23:09 09:11 09:11 RBC 3.77 L (4.30-5.90) m/uL Hgb 11.5 L (13.0-17.5) gm/dL Hct 38.3 L (39.0-53.0) % MCV 101.7 H (80.0-100.0) fL MCHC 29.9 L (31.0-37.0) g/dL Lymphocytes # 0.5 L (1.0-4.8) k/uL Chloride 95 L (98-107) mmol/L Carbon Dioxide 46 H* (22-30) mmol/L BUN 21 H (9-20) mg/dL Creatinine 0.65 L (0.66-1.25) mg/dL Glucose 145 H (74-99) mg/dL POC Glucose (mg/dL) 157 H (75-99) mg/dL AST 11 L (17-59) U/L Total Protein 5.9 L (6.3-8.2) g/dL Albumin 3.1 L (3.5-5.0) g/dL Microbiology - Last 24 Hours (Table) 08/19/18 10:40 Blood Culture - Preliminary Blood No Growth after 24 hours Assessment and Plan (1) Bilateral pneumonia Current Visit: Yes Status: Acute Code(s): J18.9 - PNEUMONIA, UNSPECIFIED ORGANISM SNOMED Code(s): 398149376 (2) Adult respiratory distress syndrome Current Visit: Yes Status: Acute Code(s): J80 - ACUTE RESPIRATORY DISTRESS SYNDROME SNOMED Code(s): 29290586 (3) Acute exacerbation of chronic obstructive airways disease Current Visit: Yes Status: Acute Code(s): J44.1 - CHRONIC OBSTRUCTIVE PULMONARY DISEASE W (ACUTE) EXACERBATION SNOMED Code(s): 824366014 (4) Oxygen dependent Current Visit: Yes Status: Acute Code(s): Z99.81 - DEPENDENCE ON SUPPLEMENTAL OXYGEN SNOMED Code(s): 185451596313 (5) Hypoxemia Current Visit: Yes Status: Acute Code(s): R09.02 - HYPOXEMIA SNOMED Code(s ): 469658749 (6) Atrial fibrillation Current Visit: Yes Status: Acute Code(s): I48.91 - UNSPECIFIED ATRIAL FIBRILLATION SNOMED Code(s): 46267254 (7) Steroid dependent Current Visit: Yes Status: Acute Code(s): CJA1499 - SNOMED Code(s): 79341655 (8) Anxiety Current Visit: Yes Status: Acute Code(s): F41.9 - ANXIETY DISORDER, UNSPECIFIED SNOMED Code(s): 23386152 Plan: He'll continue on his oxygen, Zosyn, Levaquin, IV Solu-Medrol, DuoNeb updrafts, and further recommendations from consultants. Repeat The labs in a.m. He will be reevaluated in 24 hours. .
--- NOTE | 2018-08-21 14:17 | P.PN ---
Subjective Progress Note Date: 08/21/18 Principal diagnosis: acute on chronic hypoxemic and hypercapnic respiratory failure related to COPD exacerbation related to healthcare acquired pneumonia This is a 57-year-old white male patient of Dr. Todd, with past medical history of severe COPD, stage IV, with chronic hypoxemic respiratory failure, with a baseline FEV1 of 0.54 L or 16% of predicted, and the diffusion capacity of 24% of predicted, chronic atrial fibrillation, hyperlipidemia, previous episodes of pneumonia, BPH, anxiety, former smoker. Patient resides in the long -term care [facility]. Patient was brought into the emergency department on 08/19/2018 per EMS for evaluation of increasing shortness of breath, cough, decreased oral intake. Patient had the noted to have concentrated urine. No chest pain. Patient was in significant amount of respiratory distress on presentation, quite bronchospastic, using accessory muscles of breathing. Initial chest x-ray showed bibasilar infiltrates, could not exclude pneumonia, a background of COPD. Follow-up chest x-ray on 2018 showed similar right lower lobe opacity suspicious for pneumonia with near complete resolution of the left basilar subsegmental atelectasis with extensive underlying emphysema. Afebrile, labs were negative for leukocytosis, white blood cell count was 8.0, hemoglobin is 12.3, sodium is 144, potassium is 5.0, chloride is 94, CO2 is 41, B1 is 14 and creatinine 0.47, troponin was 0.0-7, proBNP was within normal limits at 268, influenza was negative. Patient was started on empiric antibiotics in the form of Levaquin and Zosyn, nebulized bronchodilators, and this consult was initiated. On 08/21/2018 patient seen in follow-up on medical surgical floor. awake and alert, in no acute distress, pulse ox on 4 L per nasal cannula was 99%, afebrile , hemodynamically stable.blood culture showed no growth, sputum culture was not sent, lung sounds are diminished with minimal wheezing.breathing easier today, less dyspneic. Continue current medical treatment, tinea current antibiotics, Levaquin and Zosyn, nebulized bronchodilators and IV steroids. Objective - Vital Signs Vital signs: Vital Signs Temp 97.9 F 08/21/18 06:15 Pulse 84 08/21/18 12:13 Resp 18 08/21/18 08:00 BP 126/86 01/18/19 06:15 Pulse Ox 99 08/21/18 06:15 Intake & Output 08/20/18 08/21/18 08/21/18 18:59 06:59 18:59 Intake Total 320 120 Output Total 200 0 400 Balance 120 120 -400 Intake: Oral 320 120 Output: Urine 200 0 400 Other: Voiding Method Urinal Urinal # Voids 1 1 # Bowel Movements 1 1 - Exam GENERAL EXAM: Alert, pleasant, 57-year-old white male, on 4 L per nasal cannula comfortable in no apparent distress. HEAD: Normocephalic/atraumatic. EYES: Normal reaction of pupils, equal size. Conjunctiva pink, sclera white. NOSE: Clear with pink turbinates. THROAT: No erythema or exudates. NECK: No masses, no JVD, no thyroid enlargement, no adenopathy. CHEST: No chest wall deformity. Symmetrical expansion. LUNGS: Equal air entry with no crackles, with end expiratory wheezes, diminished breath sounds bilaterally CVS: Regular rate and rhythm, normal S1 and S2, no gallops, no murmurs, no rubs ABDOMEN: Soft, nontender. No hepatosplenomegaly, normal bowel sounds, no guarding or rigidity. EXTREMITIES: No clubbing, no edema, no cyanosis, 2+ pulses and upper and lower extremities. MUSCULOSKELETAL: Muscle strength and tone normal. SPINE: No scoliosis or deformity SKIN: No rashes CENTRAL NERVOUS SYSTEM: Alert and oriented -3. No focal deficits, tone is normal in all 4 extremities. PSYCHIATRIC: Alert and oriented -3. Appropriate affect. Intact judgment and insight. - Labs CBC & Chem 7: 08/21/18 09:11 08/21/18 09:11 Labs: Abnormal Lab Results - Last 24 Hours (Table) 08/20/18 08/21/18 08/21/18 Range/Units 23:09 09:11 09:11 RBC 3.77 L (4.30-5.90) m/uL Hgb 11.5 L (13.0-17.5) gm/dL Hct 38.3 L (39.0-53.0) % MCV 101.7 H (80.0-100.0) fL MCHC 29.9 L (31.0-37.0) g/dL Lymphocytes # 0.5 L (1.0-4.8) k/uL Chloride 95 L (98-107) mmol/L Carbon Dioxide 46 H* (22-30) mmol/L BUN 21 H (9-20) mg/dL Creatinine 0.65 L (0.66-1.25) mg/dL Glucose 145 H (74-99) mg/dL POC Glucose (mg/dL) 157 H (75-99) mg/dL AST 11 L (17-59) U/L Total Protein 5.9 L (6.3-8.2) g/dL Albumin 3.1 L (3.5-5.0) g/dL Microbiology - Last 24 Hours (Table) 08/19/18 10:40 Blood Culture - Preliminary Blood No Growth after 48 hours Assessment and Plan Plan: Assessment: #1. Acute on chronic hypoxemic and hypercapnic respiratory failure related to COPD exacerbation related to a possibility of healthcare acquired pneumonia, chest x-ray showed bibasilar infiltrates suspicious for pneumonia. #2. End-stage oxygen-dependent and steroid-dependent COPD, stage IV, with underlying FEV1 of 0.54 L or 16% of predicted, and diffusion capacity of 24% #3. History of paroxysmal atrial fibrillation, currently in sinus rhythm #4. Nicotine dependence, currently in remission #5. Previous episodes of pneumonia #6. PTH #7. Hyperlipidemia #8. History of ventilatory dependent respiratory failure requiring tracheostomy placement, and patient had liberation from ventilatory support, and decannulation #9. Anxiety #10. Resident of the extended care facility, lives at the [facility] on the [facility] Plan: Continue current antibiotic coverage, patient is improving, in no apparent distress, continue nebulized treatments, continue IV steroids. Continue GI and DVT prophylaxis. follow-up chest x-ray in the morning. I performed a history & physical examination of the patient and discussed their management with my nurse practitioner, Cynthia Stacy. I reviewed the nurse practitioner's note and agree with the documented findings and plan of care. Lung sounds are positive for end expiratory wheezes, diminished breath sounds, prolongation of expiratory phase. The findings and the impression was discussed with the patient. I attest to the documentation by the nurse practitioner. Time with Patient: Less than 30
[2018-08-21] MEDS: LEVOFLOXACIN 750 MG TAB PO SCH (16:28)
[2018-08-21] MEDS: TAMSULOSIN 0.4 MG CAP.ER.24H PO SCH (19:57)
[2018-08-21] MEDS: ATORVASTATIN 20 MG TAB PO SCH (19:57)
[2018-08-21] MEDS: QUEtiapine 100 MG TAB PO SCH (19:57)
[2018-08-21 20:25] VITALS: RESP 18
[2018-08-21] MEDS: SUMAtriptan SUCCINATE 50 MG TAB PO PRN (21:10)
[2018-08-21 23:00] VITALS: TEMP 97.9
[2018-08-22] MEDS: PIPERACILLIN-TAZOBACTAM 3.375 GM in SODIUM CHLORIDE 0.9% 100 ML IVPB SCH ×2 (00:52→07:53)
[2018-08-22] MEDS: methylPREDNISolone SOD SUCCI 40 MG/ML 1 ML VIAL IV SCH ×2 (00:54→07:53)
[2018-08-22] MEDS: MORPHINE SULFATE ER 15 MG TABLET PO SCH ×2 (03:00→07:54)
[2018-08-22] MEDS: IPRATROPIUM-ALBUTEROL 3 ML NEB INHALATION SCH ×3 (03:33→10:31)
[2018-08-22] MEDS: clonazePAM 0.5 MG TAB PO PRN (05:19)
[2018-08-22 06:06] VITALS: BP 144/91
[2018-08-22] MEDS: PANTOPRAZOLE 40 MG TABLET PO SCH (06:20)
[2018-08-22] MEDS: ASPIRIN 325 MG TAB PO SCH (07:53)
[2018-08-22] MEDS: DOCUSATE 100 MG CAP PO SCH (07:54)
[2018-08-22] MEDS: LACTULOSE 20 GM/30 ML CUP PO SCH (07:54)
[2018-08-22] MEDS: CHOLECALCIFEROL 1,000 UNIT TAB PO SCH (07:54)
[2018-08-22 09:29] LABS: Blood Urea Nitrogen 18 mg/dL (9-20); Calcium 9.1 mg/dL (8.4-10.2); Chloride 96 mmol/L (98-107); Glucose 166 mg/dL (74-99); Potassium 4.4 mmol/L (3.5-5.1); Sodium 145 mmol/L (137-145)
[2018-08-22 09:35] LABS: Anion Gap 5 mmol/L
[2018-08-22 09:56] LABS: Carbon Dioxide 44 mmol/L (22-30)
--- NOTE | 2018-08-22 10:30 | P.DS ---
Providers Date of admission: 08/19/18 15:40 Expected date of discharge: 08/22/18 Attending physician: Cortez Todd Consults: 08/19/18 14:34 Consult Physician Routine Consulting Provider: Shyann Pugh Consult Reason/Comments: COPD, pneumonia Do you want consulting provider notified?: Yes Primary care physician: Cortez Todd - Discharge Diagnosis(es) (1) Bilateral pneumonia Current Visit: Yes Status: Acute (2) Adult respiratory distress syndrome Current Visit: Yes Status: Acute (3) Acute exacerbation of chronic obstructive airways disease Current Visit: Yes Status: Acute (4) Oxygen dependent Current Visit: Yes Status: Acute (5) Hypoxemia Current Visit: Yes Status: Acute (6) Atrial fibrillation Current Visit: Yes Status: Acute (7) Steroid dependent Current Visit: Yes Status: Acute (8) Anxiety Current Visit: Yes Status: Acute Hospital Course: This is a 57-year-old white male patient well known to me. He has severe COPD that's oxygen dependent. He lives over at [facility] on the [facility]. He reports that he was there are having a malfunction of his OxyContin straight or, at the staff insisted they keep using that. He reports that he desaturated down to 60%. He also reports that he's been sick with increasing cough and shortness of breath lately. He was sent to the emergency room for further evaluation after being more short of breath. He was started on Levaquin and Zosyn. This morning, he denies any chest pains, pressures, nausea or vomiting. He had a large stool today but he had been constipated over the past few days. His shortness of breath he says is stable and improved from 1 day ago. 08/21/2018 Patient is doing well this morning. Pulmonology team started him on some Solu- Medrol 40 mg every 8. He continues on antibiotics of Levaquin and Zosyn. He denies any chest pains, pressures, or shortness breath at rest at this time. He has minimal cough. He denies any diarrhea or constipation this time. He is feeling much improved. 08/22/2018 Patient is doing well. He is only complaining some urinary frequency. He denies any chest pains, pressures, shortness of breath at rest, nausea, vomiting , diarrhea or constipation. He does have shortness breath with exertion. Is currently on 2 L via nasal cannula of oxygen. Overnight he remained on Zosyn, Levaquin, and Solu-Medrol. Pulmonology felt to be stable for discharge today. He is looking well requested be discharged. He does continue his updrafts of doing every 6 hours. Return to [facility] today and I'll reevaluate him there next week and see if Dr. Patel she can see him there in 1 week or will send him to see Dr. Pugh from [facility] on [address] [place] Patient Condition at Discharge: Fair Plan - Discharge Summary Discharge Rx Participant: No New Discharge Prescriptions: New clonazePAM [KlonoPIN] 0.5 mg PO Q8H PRN #90 tab PRN Reason: Anxiety Levofloxacin [Levaquin] 750 mg PO DAILY@1600 7 Days tab Morphine Sulfate ER [Ms Contin] 15 mg PO Q8HR #90 tablet predniSONE 10 mg PO DIRECTED #30 tab Continue Albuterol Inhaler [Ventolin Hfa Inhaler] 2 puff INHALATION RT-Q6H PRN PRN Reason: Shortness Of Breath SUMAtriptan SUCCINATE [Imitrex] 100 mg PO Q24H PRN PRN Reason: Migraine Headache Magnesium Hydroxide [Milk of Magnesia] 2,400 mg PO DAILY PRN PRN Reason: Constipation clonazePAM [KlonoPIN] 0.5 mg PO Q8H PRN PRN Reason: Anxiety Acetaminophen Tab [Tylenol] 650 mg PO Q4H PRN PRN Reason: Pain Or Fever > 100.5 Morphine Sulfate ER [Ms Contin] 15 mg PO Q8H Ipratropium-Albuterol Nebulize [Duoneb 0.5 mg-3 mg/3 ml Soln] 3 ml INHALATION RT-Q4H Tamsulosin [Flomax] 0.4 mg PO HS@2100 Cholecalciferol [Vitamin D3] 1,000 unit PO DAILY@0900 QUEtiapine FUMARATE [SEROquel] 300 mg PO HS@2100 Pantoprazole [Protonix] 40 mg PO DAILY@0600 Lactulose 20 gm PO DAILY@0900 Ketoconazole 2% Shampoo [Nizoral] 1 applic TOPICAL TUSA Docusate [Colace] 100 mg PO DAILY@0900 Atorvastatin [Lipitor] 20 mg PO HS@2100 Aspirin EC [Ecotrin] 325 mg PO DAILY@0900 Mylanta Double Strength 10 ml PO Q4H PRN PRN Reason: Indigestion predniSONE 5 mg PO DAILY@0900 #0 Discharge Medication List Acetaminophen Tab [Tylenol] 650 mg PO Q4H PRN 08/19/18 [History] Albuterol Inhaler [Ventolin Hfa Inhaler] 2 puff INHALATION RT-Q6H PRN 08/19/18 [ History] Aspirin EC [Ecotrin] 325 mg PO DAILY@89908/19/18 [History] Atorvastatin [Lipitor] 20 mg PO HS@209908/19/18 [History] Cholecalciferol [Vitamin D3] 1,000 unit PO DAILY@89908/19/18 [History] Docusate [Colace] 100 mg PO DAILY@89908/19/18 [History] Ipratropium-Albuterol Nebulize [Duoneb 0.5 mg-3 mg/3 ml Soln] 3 ml INHALATION RT -Q4H 08/19/18 [History] Ketoconazole 2% Shampoo [Nizoral] 1 applic TOPICAL TUSA 08/19/18 [History] Lactulose 20 gm PO DAILY@89908/19/18 [History] Magnesium Hydroxide [Milk of Magnesia] 2,400 mg PO DAILY PRN 08/19/18 [History] Morphine Sulfate ER [Ms Contin] 15 mg PO Q8H 08/19/18 [History] Mylanta Double Strength 10 ml PO Q4H PRN 08/19/18 [History] Pantoprazole [Protonix] 40 mg PO DAILY@0608/19/18 [History] QUEtiapine FUMARATE [SEROquel] 300 mg PO HS@209908/19/18 [History] SUMAtriptan SUCCINATE [Imitrex] 100 mg PO Q24H PRN 08/19/18 [History] Tamsulosin [Flomax] 0.4 mg PO HS@209908/19/18 [History] clonazePAM [KlonoPIN] 0.5 mg PO Q8H PRN 08/19/18 [History] Levofloxacin [Levaquin] 750 mg PO DAILY@1600 7 Days tab 08/22/18 [Rx] Morphine Sulfate ER [Ms Contin] 15 mg PO Q8HR #90 tablet 08/22/18 [Rx] clonazePAM [KlonoPIN] 0.5 mg PO Q8H PRN #90 tab 08/22/18 [Rx] predniSONE 5 mg PO DAILY@0900 #0 08/22/18 [Rx] predniSONE 10 mg PO DIRECTED #30 tab 08/22/18 [Rx] Follow up Appointment(s)/Referral(s): Petar Olmedo DO [Doctor of Osteopathic Medicine] - 1 Week Cortez Todd MD [Primary Care Provider] - 1 Week Discharge Disposition: TRANSFER TO SNF/ECF
[2018-08-22 10:34] VITALS: PULSE 76
[2018-08-22] MEDS ORDERED: KETOCONAZOLE 2% SHAMPOO 1 APPLIC/ML TOPICAL SCH (18:00)
== END 2018-08-22 11:36 | DRG 190 ==
LOC: EC 10:14 → 4MS4W 15:40
PROVIDERS: ADMIT Family Medicine; ATTEND Family Medicine
DX: J43.9 Emphysema, unspecified (principal); J18.9 Pneumonia, unspecified organism; J96.21 Acute and chronic respiratory failure with hypoxia; J96.22 Acute and chronic respiratory failure with hypercapnia; B35.9 Dermatophytosis, unspecified; E78.5 Hyperlipidemia, unspecified; F17.201 Nicotine dependence, unspecified, in remission; F41.9 Anxiety disorder, unspecified; I48.0 Paroxysmal atrial fibrillation; I48.2 Chronic atrial fibrillation; N40.0 Benign prostatic hyperplasia without lower urinary tract symptoms; Y95 Nosocomial condition; Z79.52 Long term (current) use of systemic steroids; Z79.82 Long term (current) use of aspirin; Z79.899 Other long term (current) drug therapy; Z82.5 Family history of asthma and other chronic lower respiratory diseases; Z99.81 Dependence on supplemental oxygen; Z79.891 Long term (current) use of opiate analgesic
CPT/HCPCS: 36415; 71046; 80048; 80053; 82550; 82553; 83735; 83880; 84484; 85025; 85610; 85730; 87040; 87070; 87205; 87502; 93005; 94640; 94760; 96361; 96365; 96368; 96375; 99291

== ENCOUNTER 2019-01-11 14:57 | Observation (INO) | payer OTHER ==
[2019-01-11] MEDS ORDERED: IPRATROPIUM-ALBUTEROL 3 ML NEB INHALATION STA (16:11)
[2019-01-11] MEDS ORDERED: DEXAMETHASONE SOD PHOSPHATE 10 MG/ML 1 ML VIAL IV STA (16:14)
[2019-01-11] MEDS ORDERED: METOCLOPRAMIDE 5 MG/ML 2 ML VIAL IVP STA (16:14)
[2019-01-11] MEDS ORDERED: diphenhydrAMINE 50 MG/ML 1 ML VIAL IVP STA (16:14)
[2019-01-11] MEDS ORDERED: MAGNESIUM SULFATE-D5W PMX 1 GM in DEXTROSE/WATER 1 100ML.BAG IVPB ONE (16:15)
[2019-01-11 17:06] LABS: Basophils % (A) 1 %; Eosinophils # (A) 0.1 k/uL (0-0.7); Eosinophils % (A) 1 %; HCT 37.6 % (39.0-53.0); HGB 11.5 gm/dL (13.0-17.5); Hypochromasia Marked; Lymphocytes % (A) 13 %; MCH 29.4 pg (25.0-35.0); MCHC 30.5 g/dL (31.0-37.0); MCV 96.2 fL (80.0-100.0); Mean Platelet Volume 7.5; Monocytes # (A) 0.4 k/uL (0-1.0); Monocytes % (A) 6 %; Neutrophils # (A) 5.5 k/uL (1.3-7.7); Neutrophils % (A) 78 %; Platelet Count 297 k/uL (150-450); RBC 3.91 m/uL (4.30-5.90); RDW 13.4 % (11.5-15.5); WBC 7.1 k/uL (3.8-10.6)
[2019-01-11 17:33] LABS: Partial Thromboplastin Time 23.8 sec (22.0-30.0); Prothrombin Time 10.7 sec (9.0-12.0)
[2019-01-11 17:44] LABS: ALT 21 U/L (21-72); AST 18 U/L (17-59); African American GFR (CKD) >90 (>60 ml/min/1.73 sqM); Albumin 3.4 g/dL (3.5-5.0); Alkaline Phosphatase 80 U/L (38-126); Blood Urea Nitrogen 20 mg/dL (9-20); Calcium 8.5 mg/dL (8.4-10.2); Chloride 94 mmol/L (98-107); Glucose 118 mg/dL (74-99); Magnesium 1.9 mg/dL (1.6-2.3); Potassium 4.9 mmol/L (3.5-5.1); Sodium 143 mmol/L (137-145); Total Bilirubin 0.5 mg/dL (0.2-1.3); Total Protein 6.3 g/dL (6.3-8.2)
[2019-01-11 17:52] LABS: Anion Gap 5 mmol/L
[2019-01-11 17:57] LABS: Carbon Dioxide 44 mmol/L (22-30)
--- NOTE | 2019-01-11 18:54 | CT ---
EXAMINATION: CT brain wo con DATE AND TIME: 01/11/2019 6:14 PM CLINICAL INDICATION: PHH; headache, photophobia TECHNIQUE: Standard departmental protocol.; 1129.4; COMPARISON: CT 04/09/2011 FINDINGS: The calvarium is intact. There is no intracranial hemorrhage. There is no intracranial mass or mass effect. No definite new intra-axial or extra-axial attenuation defect. Stable CT appearance when compared with the prior study. The paranasal sinuses, middle ear cavities, and mastoid sinus air cells are clear. The orbits are unremarkable. IMPRESSION: NO ACUTE PROCESS.
--- NOTE | 2019-01-11 18:57 | CT ---
EXAMINATION TYPE: CT pelvis w con DATE OF EXAM: 01/11/2019 COMPARISON: None HISTORY: Pain, redness and swelling right buttock CT DLP: 622.7 mGycm Automated exposure control for dose reduction was used. CONTRAST: Performed with IV Contrast, patient injected with 100 mL of Isovue 300. FINDINGS: At the right buttock site of interest posteriorly is cutaneous skin thickening and soft tis javed swelling measuring 6 cm transverse by 4 cm craniocaudal by 2 cm AP. This soft tissue swelling is of soft tissue CT density, without fluid density or gas density. In addition, there is a 2 cm normal fat plane between the finding and the underlying buttock musculat ure. Also, there is no communication with the rectosigmoid or other structures deep to the skin. The solid and hollow viscera of the pelvis are negative as seen. There is no mass or adenopathy. There are no acute vascular findings. However, atherosclerotic nonaneurysmal calcifications are seen throughout the arterial anatomy. There are no focal skeletal lesions. IMPRESSION: 6 X 4 X 2 CM SUBCUTANEOUS SOFT TISSUE SWELLING ACCOUNTS FOR THE CT CORRELATE OF THE CLINICALLY-SUBMIT PAULETTE HISTORY.
[2019-01-11] MEDS ORDERED: VANCOMYCIN 1,000 MG in SODIUM CHLORIDE 0.9% 250 ML IVPB STA (19:47)
[2019-01-11] MEDS ORDERED: VANCOMYCIN IV PER PHARMACY 1 EACH MISC MISCELLANE PRN (19:57)
--- NOTE | 2019-01-11 20:10 | XR ---
EXAMINATION: XR chest 3V DATE AND TIME: 01/11/2019 5:58 PM CLINICAL INDICATION: PHH; difficulty breathing TECHNIQUE: Departmental protocol COMPARISON: 08/20/2018 FINDINGS: LUNG PARENCHYMA: Asymmetric attenuation of upper lobe vasculature and hyperinflation, radiographic fe atures consistent with emphysema. There is no evidence of pulmonary edema. No definite consolidation to suggest bronchopneumonia. No definite bronchogenic mass. However, several nodular and linear opacities are noted. These are likely chronic but eventual nonurg ent follow-up chest CT characterization of the chronic lung parenchymal findings is recommended. Pleural spaces: Negative. Cardiomediastinal silhouette: Negative. Skeletal structures and soft tissues: No acute process. IMPRESSION: 1. NO ACUTE PROCESS. 2. Chronic-appearing lung parenchymal findings and follow up as discussed.
[2019-01-11] MEDS ORDERED: VANCOMYCIN 1,750 MG in SODIUM CHLORIDE 0.9% 500 ML 500 ML IVPB ONE (20:15)
[2019-01-11] MEDS ORDERED: ACYCLOVIR SODIUM 850 MG in SODIUM CHLORIDE 0.9% 250 ML IV ONE (20:30)
--- NOTE | 2019-01-11 21:26 | ED ---
Headache HPI - General Chief Complaint: Headache Stated Complaint: SALOMÓN Time Seen by Provider: 01/11/19 15:40 Source: patient, EMS Mode of arrival: EMS Limitations: no limitations - History of Present Illness Initial Comments: The patient is a 58-year-old male who is brought into the emergency department from [facility] with complaint of a headache, shortness of breath and a abscess on his right buttock. He admits to long-standing history of headaches. Admits that he used to see a neurologist in the past for them. He is on Imitrex. States that his current headache has lasted for 8 days. Admits that the persistence of his headache is abnormal for him. He reports associated photophobia, blurred vision, neck pain. These are consistent with his previous migraines. Reports a hallucination earlier today for which he thought his nurse was taking his blood pressure. States it only lasted several seconds when he realized the nurse was not around him. Admits to chills however has had no recorded fevers at home. The patient arrives febrile. He has had exposure to a sick contact. Reports that his nurse that takes care of him at the rehab [facility] was diagnosed with bacterial meningitis 3 weeks ago. Denies sudden onset or maximal intensity. No back pain or chest pain. The patient does report chronic shortness of breath secondary to COPD. Denies cough or hemoptysis. The patient also reports an abscess on his right buttock. Admits to history of abscesses that have been previously drained. Lesion on his right buttock did have draina ge several days ago however this has stopped. He admits to warmth to the site with increasing redness. Denies any changes in his urination or bowel habits. There are no other alleviating, precipitating or modifying factors - Related Data Home Medications Medication Instructions Recorded Confirmed Acetaminophen Tab [Tylenol] 650 mg PO Q4H PRN 08/19/18 01/11/19 Aspirin EC [Ecotrin] 325 mg PO DAILY@89908/19/18 01/11/19 Atorvastatin [Lipitor] 20 mg PO HS@2100 08/19/18 01/11/19 Cholecalciferol [Vitamin D3 (25 1,000 unit PO DAILY@89908/19/18 01/11/19 Mcg = 1000 Iu)] Docusate [Colace] 100 mg PO DAILY@89908/19/18 01/11/19 Ketoconazole 2% Shampoo [Nizoral] 1 applic TOPICAL MOTH 08/19/18 01/11/19 Lactulose 20 gm PO DAILY@0900 08/19/18 01/11/19 Magnesium Hydroxide [Milk of 2,400 mg PO DAILY PRN 08/19/18 01/11/19 Magnesia] Mylanta Double Strength 10 ml PO Q4H PRN 08/19/18 01/11/19 Pantoprazole [Protonix] 40 mg PO DAILY@0600 08/19/18 01/11/19 QUEtiapine FUMARATE [SEROquel] 300 mg PO HS@2100 08/19/18 01/11/19 SUMAtriptan SUCCINATE [Imitrex] 100 mg PO Q24H PRN 08/19/18 01/11/19 Tamsulosin [Flomax] 0.4 mg PO HS@2100 08/19/18 01/11/19 Bisacodyl 10 mg RECTAL DAILY PRN 01/11/19 01/11/19 Loperamide HCl [Imodium A-D] 2 mg PO DAILY PRN 01/11/19 01/11/19 Previous Rx's Medication Instructions Recorded predniSONE 5 mg PO DAILY@0900 #0 08/22/18 Budesonide-Formot 160-4.5 Mcg 2 puff INHALATION BID #1 inhaler 01/13/19 [Symbicort 160-4.5 Mcg Inhaler] Cefadroxil [Duricef] 500 mg PO Q12HR #10 cap 01/13/19 HYDROcodone/APAP 10-325MG [[place] 1 each PO Q6H PRN #12 tab 01/13/19 10-325] Ipratropium-Albuterol Nebulize 3 ml INHALATION QID ampul.neb 01/13/19 [Duoneb 0.5 mg-3 mg/3 ml Soln] Ipratropium-Albuterol Nebulize 3 ml INHALATION RT-Q4H PRN #1 01/13/19 [Duoneb 0.5 mg-3 mg/3 ml Soln] clonazePAM [KlonoPIN] 0.5 mg PO Q12H #6 tab 01/13/19 Allergies Allergy/AdvReac Type Severity Reaction Status Date / Time No Known Allergies Allergy Verified 06/10/19 16:10 Review of Systems ROS Statement: Those systems with pertinent positive or pertinent negative responses have been documented in the HPI. ROS Other: All systems not noted in ROS Statement are negative. Past Medical History Past Medical History: Atrial Fibrillation, COPD, Hyperlipidemia, Pneumonia, Prostate Disorder History of Any Multi-Drug Resistant Organisms: None Reported Past Surgical History: Back Surgery Additional Past Surgical History / Comment(s): tracheostomy & removal Past Anesthesia/Blood Transfusion Reactions: No Reported Reaction Past Psychological History: Anxiety Smoking Status: Former smoker Past Alcohol Use History: None Reported Past Drug Use History: None Reported - Past Family History Mother Family Medical History: COPD Father Family Medical History: Myocardial Infarction (NH) Additional Family Medical History / Comment(s): Father of a NH at the age of 75yrs. General Exam Limitations: no limitations General appearance: alert, in no apparent distress Head exam: Present: atraumatic, normocephalic, normal inspection Eye exam: Present: normal appearance, PERRL, EOMI. Absent: scleral icterus, conjunctival injection, periorbital swelling ENT exam: Present: normal exam, mucous membranes moist Neck exam: Present: normal inspection, other (Negative Kernigs. Negative Brudzinskis. The patient admits to paraspinal cervical muscle pain). Absent: tenderness, meningismus, lymphadenopathy Respiratory exam: Present: wheezes, prolonged expiratory, other (The patient has decreased breath sounds in all lung bowman with audible wheezing. He has a productive, bronchospastic cough.). Absent: respiratory distress, rales, rhonchi, stridor Cardiovascular Exam: Present: regular rate, normal rhythm, normal heart sounds. Absent: systolic murmur, diastolic murmur, rubs, gallop, clicks GI/Abdominal exam: Present: soft, normal bowel sounds. Absent: distended, tenderness, guarding, rebound, rigid Rectal exam: Present: normal inspection exam: Present: normal inspection. Absent: testicular tenderness, scrotal swelling Extremities exam: Present: normal inspection, full ROM, normal capillary refill. Absent: tenderness, pedal edema, joint swelling, calf tenderness Back exam: Present: normal inspection Neurological exam: Present: alert, oriented X3, CN II-XII intact, other (Gait is defered. Patient has no focal neurologic deficits. Downward babinski. No truncal ataxia. Finger to nose is symmetric. ) Psychiatric exam: Present: normal affect, normal mood Skin exam: Present: warm, dry, intact, normal color, other (The patient has a large area of cellulitis on his right buttock measuring 8 x 6 cm. There is no identifiable abscess collection. There is a small scab over the center of the cellulitic area. No drainage identified. Does not grossly appear to extend to rectum.). Absent: rash Course Vital Signs 01/11/19 01/11/19 01/11/19 15:28 17:00 18:02 Temperature 100.4 F H Pulse Rate 77 76 78 Pulse Rate [ Pulse Oximetery ] Respiratory 18 18 Rate Blood Pressure 127/85 119/76 Blood Pressure [Left Arm] O2 Sat by Pulse 97 99 Oximetry 01/11/19 01/11/19 01/11/19 18:10 18:11 18:49 Temperature 99.7 F H Pulse Rate 79 78 Pulse Rate [ Pulse Oximetery ] Respiratory 18 Rate Blood Pressure 127/86 Blood Pressure [Left Arm] O2 Sat by Pulse 100 Oximetry 01/11/19 01/11/19 01/11/19 19:00 20:00 21:30 Temperature Pulse Rate 76 71 75 Pulse Rate [ Pulse Oximetery ] Respiratory 18 18 18 Rate Blood Pressure 152/90 118/83 138/90 Blood Pressure [Left Arm] O2 Sat by Pulse 97 95 94 L Oximetry 01/11/19 01/11/19 01/11/19 23:05 23:19 23:27 Temperature 98.4 F Pulse Rate 78 79 81 Pulse Rate [ Pulse Oximetery ] Respiratory 18 Rate Blood Pressure 138/87 Blood Pressure [Left Arm] O2 Sat by Pulse 98 Oximetry 01/12/19 01/12/19 01/12/19 00:00 03:29 03:40 Temperature 98.5 F Pulse Rate 79 84 85 Pulse Rate [ Pulse Oximetery ] Respiratory 18 Rate Blood Pressure 119/80 Blood Pressure [Left Arm] O2 Sat by Pulse 95 Oximetry 01/12/19 01/12/19 01/12/19 04:00 05:00 06:00 Temperature 98.3 F Pulse Rate 80 70 73 Pulse Rate [ Pulse Oximetery ] Respiratory 18 18 18 Rate Blood Pressure 122/77 121/69 125/75 Blood Pressure [Left Arm] O2 Sat by Pulse 97 98 97 Oximetry 01/12/19 01/12/1901/12/19 07:19 07:31 10:50 Temperature Pulse Rate 81 78 81 Pulse Rate [ Pulse Oximetery ] Respiratory Rate Blood Pressure Blood Pressure [Left Arm] O2 Sat by Pulse Oximetry 01/12/19 01/12/19 01/12/19 11:00 13:47 15:12 Temperature 98.4 F Pulse Rate 69 72 Pulse Rate [ 118 H Pulse Oximetery ] Respiratory 18 16 Rate Blood Pressure Blood Pressure 146/80 [Left Arm] O2 Sat by Pulse 93 L 95 Oximetry 01/12/19 01/12/19 15:23 17:23 Temperature 98.5 F Pulse Rate 72 Pulse Rate [ 72 Pulse Oximetery ] Respiratory 16 Rate Blood Pressure Blood Pressure 145/92 [Left Arm] O2 Sat by Pulse 94 L Oximetry Procedures - Lumbar Puncture Consent Obtained: verbal consent, written consent Indication for Procedure: headache, fever work up Patient Position: left lateral decubitus Skin Prep: 0.5% Chlorhexidine/Alcohol Local Anesthetic Used: Lidocaine 1% Spinal Needle Gauge: 20G Spinal Needle Length: 3in Interspace Used: L4-L5 Fluid Initially Obtained: clear Complications: none Patient Tolerated Procedure: well, no complications Medical Decision Making - Medical Decision Making Patient was placed into room 25. He is hooked up to continuous pulse ox and cardiac monitoring. A 12 lead EKG is performed. The patient is provided with a DuoNeb breathing treatments. I recommended laboratory studies as well as a CT of the patient's brain and pelvis. He will also have a chest x-ray performed. Upon return of the results, they are discussed the patient. CT of the pelvis demonstrates a right buttock cellulitis without identifiable abscess. The patient did arrive and was febrile with a temperature 100.4F. He was given a migraine cocktail which consisted of 10 mg of Decadron, 10 of Reglan, 25 mg of Benadryl and 1 g of magnesium. The patient was re-evaluated and continued to have a headache. It has improved from 10/10 to 6/10. Due to his reported fever with headache I did discuss a lumbar puncture with the patient. As the patient did have exposure to a healthcare worker with meningitis, he does agree to the procedure. Verbal and written consent were obtained. It was performed without difficulty. CSF is collected and sent to the lab for analysis. I did initiate vancomycin, Rocephin and Acyclovir on the patient for possible meningitis as well as right buttock cellulitis. The patient will be admitted to the hospital. I did call and discuss the case with Dr. Chavez who did accept admission for the patient. Bridging orders were placed. I will consult neurology to see the patient for his intractable headache. Patient was reevaluated on multiple occasions. His headache improved further after LP and was completely resolved prior to transfer to the floor. The patient remained in stable condition awaiting transport. - Differential Diagnosis intractable cephalgia, possible meningitis, right buttock cellulitis - Lab Data Result diagrams: 01/12/19 11:28 01/13/19 10:49 Lab Results 01/11/19 01/11/19 01/11/19 Range/Units 16:50 16:50 16:50 WBC 7.1 (3.8-10.6) k/uL RBC 3.91 L (4.30-5.90) m/uL Hgb 11.5 L (13.0-17.5) gm/dL Hct 37.6 L (39.0-53.0) % MCV 96.2 (80.0-100.0) fL MCH 29.4 (25.0-35.0) pg MCHC 30.5 L (31.0-37.0) g/dL RDW 13.4 (11.5-15.5) % Plt Count 297 (150-450) k/uL Neutrophils % 78 % Lymphocytes % 13 % Monocytes % 6 % Eosinophils % 1 % Basophils % 1 % Neutrophils # 5.5 (1.3-7.7) k/uL Lymphocytes # 1.0 (1.0-4.8) k/uL Monocytes # 0.4 (0-1.0) k/uL Eosinophils # 0.1 (0-0.7) k/uL Basophils # 0.0 (0-0.2) k/uL Hypochromasia Marked ESR (0-15) mm/hr PT 10.7 (9.0-12.0) sec INR 1.0 (<1.2) APTT 23.8 (22.0-30.0) sec Sodium (137-145) mmol/L Potassium (3.5-5.1) mmol/L Chloride (98-107) mmol/L Carbon Dioxide (22-30) mmol/L Anion Gap mmol/L BUN (9-20) mg/dL Creatinine (0.66-1.25) mg/dL Est GFR (CKD-EPI)AfAm (>60 ml/min/1.73 sqM) Est GFR (CKD-EPI)NonAf (>60 ml/min/1.73 sqM) Glucose (74-99) mg/dL Plasma Lactic Acid Dennis (0.7-2.0) mmol/L Calcium (8.4-10.2) mg/dL Magnesium (1.6-2.3) mg/dL Total Bilirubin (0.2-1.3) mg/dL AST (17-59) U/L ALT (21-72) U/L Alkaline Phosphatase (38-126) U/L C-Reactive Protein (<10.0) mg/L NT-Pro-B Natriuret Pep 52 pg/mL Total Protein (6.3-8.2) g/dL Albumin (3.5-5.0) g/dL 01/11/19 01/11/19 01/11/19 Range/Units 16:50 17:20 17:20 WBC (3.8-10.6) k/uL RBC (4.30-5.90) m/uL Hgb (13.0-17.5) gm/dL Hct (39.0-53.0) % MCV (80.0-100.0) fL MCH (25.0-35.0) pg MCHC (31.0-37.0) g/dL RDW (11.5-15.5) % Plt Count (150-450) k/uL Neutrophils % % Lymphocytes % % Monocytes % % Eosinophils % % Basophils % % Neutrophils # (1.3-7.7) k/uL Lymphocytes # (1.0-4.8) k/uL Monocytes # (0-1.0) k/uL Eosinophils # (0-0.7) k/uL Basophils # (0-0.2) k/uL Hypochromasia ESR 40 H (0-15) mm/hr PT (9.0-12.0) sec INR (<1.2) APTT (22.0-30.0) sec Sodium 143 (137-145) mmol/L Potassium 4.9 (3.5-5.1) mmol/L Chloride 94 L (98-107) mmol/L Carbon Dioxide 44 H* (22-30) mmol/L Anion Gap 5 mmol/L BUN 20 (9-20) mg/dL Creatinine 0.55 L (0.66-1.25) mg/dL Est GFR (CKD-EPI)AfAm >90 (>60 ml/min/1.73 sqM) Est GFR (CKD-EPI)NonAf >90 (>60 ml/min/1.73 sqM) Glucose 118 H (74-99) mg/dL Plasma Lactic Acid Dennis 1.1 (0.7-2.0) mmol/L Calcium 8.5 (8.4-10.2) mg/dL Magnesium 1.9 (1.6-2.3) mg/dL Total Bilirubin 0.5 (0.2-1.3) mg/dL AST 18 (17-59) U/L ALT 21 (21-72) U/L Alkaline Phosphatase 80 (38-126) U/L C-Reactive Protein 43.0 H (<10.0) mg/L NT-Pro-B Natriuret Pep pg/mL Total Protein 6.3 (6.3-8.2) g/dL Albumin 3.4 L (3.5-5.0) g/dL - EKG Data EKG Comments: EKG demonstrates a normal sinus rhythm with a ventricular rate of 73. [place] interval 124. QRS 92. QTC 423. There are no acute ST segment elevations or depressions concerning for ischemic changes. Disposition Clinical Impression: Migraine, Oxygen dependent, Pyrexia, Cellulitis and abscess of buttock, Headache, Acute exacerbation of chronic obstructive airways disease Disposition: ADMITTED IP TO THIS HOSP Condition: Stable Is patient prescribed a controlled substance at d/c from ED?: No Decision to Admit Reason: Admit from EC Decision Date: 01/11/19 Decision Time: 21:26
[2019-01-11] MEDS ORDERED: NALOXONE 0.4 MG/ML 1 ML VIAL IV PRN (21:53)
[2019-01-11] MEDS ORDERED: LIDOCAINE 1% INJ 10MG/ML (20 ML MDV) SQ ONE (22:24)
[2019-01-11] MEDS: IPRATROPIUM-ALBUTEROL 3 ML NEB INHALATION SCH (23:05)
[2019-01-11 23:59] LABS: Glucose,CSF 92 mg/dL (40-70); Total Protein,CSF 47 mg/dL (12-60)
[2019-01-12 00:08] LABS: Appearance,CSF Clear; CSF Tube Number 4
[2019-01-12 00:09] LABS: Nucleated Cells, CSF 1 u/L (0-5); Red Blood Cell,CSF 0 u/L (0-10)
[2019-01-12] MEDS: MORPHINE SULFATE ER 15 MG TABLET PO SCH ×3 (00:35→16:28)
[2019-01-12] MEDS: IPRATROPIUM-ALBUTEROL 3 ML NEB INHALATION SCH ×6 (03:29→23:23)
[2019-01-12] MEDS ORDERED: ACYCLOVIR SODIUM 850 MG in SODIUM CHLORIDE 0.9% 250 ML IV SCH (08:00)
[2019-01-12] MEDS: clonazePAM 0.5 MG TAB PO SCH ×2 (10:15→21:39)
[2019-01-12] MEDS: ACYCLOVIR SODIUM 850 MG in SODIUM CHLORIDE 0.9% 250 ML IV SCH ×2 (10:15→17:29)
[2019-01-12] MEDS: VANCOMYCIN 1,500 MG in SODIUM CHLORIDE 0.9% 250 ML IVPB SCH ×3 (10:15→21:30)
[2019-01-12] MEDS: LACTULOSE 20 GM/30 ML CUP PO SCH (10:16)
[2019-01-12] MEDS: predniSONE 5 MG TAB PO SCH (10:16)
[2019-01-12 11:13] VITALS: BMI 28.4
[2019-01-12 12:13] LABS: African American GFR (CKD) >90 (>60 ml/min/1.73 sqM); Blood Urea Nitrogen 22 mg/dL (9-20); Calcium 8.9 mg/dL (8.4-10.2); Chloride 98 mmol/L (98-107); Glucose 123 mg/dL (74-99); Potassium 4.1 mmol/L (3.5-5.1); Sodium 142 mmol/L (137-145)
[2019-01-12 12:16] LABS: Basophils % (A) 1 %; Eosinophils % (A) 0 %; HCT 37.1 % (39.0-53.0); Hypochromasia Marked; Lymphocytes # (A) 1.6 k/uL (1.0-4.8); Lymphocytes % (A) 20 %; MCH 28.4 pg (25.0-35.0); MCHC 29.7 g/dL (31.0-37.0); MCV 95.6 fL (80.0-100.0); Mean Platelet Volume 7.1; Monocytes # (A) 0.5 k/uL (0-1.0); Monocytes % (A) 6 %; Neutrophils # (A) 5.7 k/uL (1.3-7.7); Neutrophils % (A) 70 %; Platelet Count 325 k/uL (150-450); RBC 3.88 m/uL (4.30-5.90); RDW 13.3 % (11.5-15.5); WBC 8.1 k/uL (3.8-10.6)
[2019-01-12 12:20] LABS: Anion Gap 5 mmol/L
[2019-01-12 12:22] LABS: Carbon Dioxide 39 mmol/L (22-30)
--- NOTE | 2019-01-12 14:15 | P.CNNES ---
History of Present Illness Consult date: 01/12/19 Reason for Consult: Intractable cephalgia, pyrexia History of Present Illness: Patient is a 58-year-old male who has history of migraines since he was 85 or 6. He states he used to get here infection, and would lead to a migraine headache. Patient states while he was in 20s and 30s, he used to have migraines about once a year. Patient states that about 30 years ago he was working on his brothers porch, when he slipped on ice on the stairs, hit the low back to the bottom of the stairs and the mid back and the neck on the stairs, hurting at 3 different spots on the back. He has developed chronic neck pain, headaches since then. In the last 2 years his migraines have gotten worse. It has been occurring almost daily. Patient has been living in [facility] for the last 1-1/2 years since his . Patient states that he had stage for emphysema, therefore cannot live by himself. Patient also has chronic back issues for which she has been on morphine 10 mg 3 times a day. Patient states that he has not received morphine for the last 2 days and the headache has resolved. He has not just left over neck soreness. Patient also states that he had history of 2 herniated disks and bulging disks. He gets pain in the left side of the neck, left arm with numbness and tingling in the fingers of left hand. He also had right rotator cuff tear. Sciatica due to bulging disc. He follows up with a pain specialist. Patient had a normal computed tomography scan of head yesterday. Paranasal sinuses are clear. EKG with normal sinus rhythm. Patient had undergone blood test with normal WBC, hemoglobin 11.0 platelets are 09/06/2024. ESR 40. PT/PTT normal. Electrolytes normal, BU and 22, creatinine 0.58. CRP 43. Patient underwent spinal fluid examination, which was clear and colorless, 0 RBC, 1 WBC, normal protein 47 (12-60) and glucose 92. Review of Systems Neck pain, back pain. Cellulitis in the right buttock. Headaches but now has resolved. Past Medical History Past Medical History: Atrial Fibrillation, Asthma, COPD, GERD/Reflux, Hyperl ipidemia, Pneumonia, Prostate Disorder, Respiratory Disorder Additional Past Medical History / Comment(s): Chronic respiratory failure, steroid and oxygen dependent, ARDS, hypoxemia, chronic SOB, bilateral leg edema, chronic low back pain with sciatica R buttock, chronic cervical pain, numbness/tingling L arm d/t herniated cervical discs, R rotator cuff pain/dysfunction, muscle weakness/leg weakness, R eye blurred vision d/t corneal injury and L eye has start of cataract with limited vision, current abscess R buttock. History of Any Multi-Drug Resistant Organisms: None Reported Past Surgical History: Adenoidectomy, Back Surgery, Tonsillectomy Additional Past Surgical History / Comment(s): Trach/peg insertion and since removed, abscesses buttocks and R cheek drained, bronchoscopies/washings, colonoscopy with benign polypectomy. Past Anesthesia/Blood Transfusion Reactions: No Reported Reaction Smoking Status: Former smoker - Past Family History Mother Family Medical History: COPD Additional Family Medical History / Comment(s): Mother of COPD at the age of 80yrs. Father Family Medical History: Myocardial Infarction ([place]) Additional Family Medical History / Comment(s): Father of a [place] at the age of 75yrs. Medications and Allergies Home Medications Medication Instructions Recorded Confirmed Type Acetaminophen Tab [Tylenol] 650 mg PO Q4H PRN 08/19/18 01/11/19 History Aspirin EC [Ecotrin] 325 mg PO DAILY@89908/19/18 01/11/19 History Atorvastatin [Lipitor] 20 mg PO HS@2100 08/19/18 01/11/19 History Cholecalciferol [Vitamin D3 (25 1,000 unit PO DAILY@89908/19/18 01/11/19 History Mcg = 1000 Iu)] Docusate [Colace] 100 mg PO DAILY@89908/19/18 01/11/19 History Ipratropium-Albuterol Nebulize 3 ml INHALATION RT-Q4H 08/19/18 01/11/19 History [Duoneb 0.5 mg-3 mg/3 ml Soln] Ketoconazole 2% Shampoo [Nizoral] 1 applic TOPICAL MOTH 08/19/18 01/11/19 History Lactulose 20 gm PO DAILY@0900 08/19/18 01/11/19 History Magnesium Hydroxide [Milk of 2,400 mg PO DAILY PRN 08/19/18 01/11/19 History Magnesia] Mylanta Double Strength 10 ml PO Q4H PRN 08/19/18 01/11/19 History Pantoprazole [Protonix] 40 mg PO DAILY@0600 08/19/18 01/11/19 History QUEtiapine FUMARATE [SEROquel] 300 mg PO HS@2100 08/19/18 01/11/19 History SUMAtriptan SUCCINATE [Imitrex] 100 mg PO Q24H PRN 08/19/18 01/11/19 History Tamsulosin [Flomax] 0.4 mg PO HS@2100 08/19/18 01/11/19 History Morphine Sulfate ER [Ms Contin] 15 mg PO Q8HR #90 tablet 08/22/18 01/11/19 Rx predniSONE 5 mg PO DAILY@0900 #0 08/22/18 01/11/19 Rx Albuterol Sulfate [Proair Hfa] 2 puff INHALATION RT-Q6H PRN 01/11/19 01/11/19 History Bisacodyl 10 mg RECTAL DAILY PRN 01/11/19 01/11/19 History Loperamide HCl [Imodium A-D] 2 mg PO DAILY PRN 01/11/19 01/11/19 History clonazePAM [KlonoPIN] 0.5 mg PO Q12H 01/11/19 01/11/19 History Allergies Allergy/AdvReac Type Severity Reaction Status Date / Time No Known Allergies Allergy Verified 01/11/19 16:10 Physical Examination - Vital Signs Vital Signs: Vital Signs Temp Pulse Pulse Resp BP BP Pulse Ox 01/12/19 13:47 98.4 F 118 H 18 146/80 93 L 01/12/19 11:00 69 01/12/19 10:50 81 01/12/19 07:31 78 01/12/19 07:19 81 01/12/19 06:00 98.3 F 73 18 125/75 97 01/12/19 05:00 70 18 121/69 98 01/12/19 04:00 80 18 122/77 97 01/12/19 03:40 85 01/12/19 03:29 84 01/12/19 00:00 98.5 F 79 18 119/80 95 01/11/19 23:27 98.4 F 81 18 138/87 98 01/11/19 23:19 79 01/11/19 23:05 78 01/11/19 21:30 75 18 138/90 94 L 01/11/19 20:00 71 18 118/83 95 01/11/19 19:00 76 18 152/90 97 01/11/19 18:49 99.7 F H 01/11/19 18:11 78 01/11/19 18:10 79 18 127/86 100 01/11/19 18:02 78 01/11/19 17:00 76 18 119/76 99 01/11/19 15:28 100.4 F H 77 18 127/85 97 Intake and Output 01/11/19 01/12/19 01/12/19 22:59 06:59 14:59 Output Total 300 Balance -300 Output: Urine 300 Other: # Bowel Movements 1 Weight 82.463 kg On examination patient is a late middle aged male, in no distress. He is alert and awake. His mental status, speech and language functions are normal. Cranial nerves pupils are round and reacting, visual bowman are full, extraocular muscles are intact. Face is symmetric and tongue protrudes the midline. Muscle strength is normal in the arms and legs distally and proximally. Reflexes symmetric and plantars downgoing. Sensory touch is equal. No ataxia for [id number] testing, tone and bulk of muscles normal. Gait deferred. Results - Laboratory Findings CBC and BMP: 01/12/19 11:28 01/12/19 11:28 Abnormal Lab Findings: Abnormal Labs 01/11/19 01/11/19 01/11/19 16:50 17:20 17:20 RBC 3.91 L Hgb 11.5 L Hct 37.6 L MCHC 30.5 L ESR 40 H Chloride 94 L Carbon Dioxide 44 H* BUN Creatinine 0.55 L Glucose 118 H C-Reactive Protein 43.0 H Albumin 3.4 L CSF Glucose 01/11/19 01/12/19 01/12/19 22:58 11:28 11:28 RBC 3.88 L Hgb 11.0 L Hct 37.1 L MCHC 29.7 L ESR Chloride Carbon Dioxide 39 H BUN 22 H Creatinine 0.58 L Glucose 123 H C-Reactive Protein Albumin CSF Glucose 92 H Assessment and Plan Assessment: * Migraine headaches, now resolved. Patient believes his headaches were related to morphine, that he has been taking 10 mg 3 times a day. He has not received morphine in the last 2 days and the headaches have resolved. No evidence of meningitis. * Right buttock cellulitis/abscess. * Chronic neck and low back pain. Plan: * Patient's headaches have resolved. Would stay off morphine, as patient believes the headaches are related to use of morphine. * Lumbar puncture is negative. We will discontinue acyclovir. * Patient has cellulitis and abscess of the right buttock. Patient will be continued on vancomycin and Rocephin. * At present he does not have any headache. Patient's ESR and CRP were elevated, but that could be related to the abscess. Doubt temporal arteritis. * We will follow patient clinically.
[2019-01-12] MEDS ORDERED: ONDANSETRON 4 MG/2 ML VIAL IVP PRN (16:29)
[2019-01-12] MEDS ORDERED: QUEtiapine 100 MG TAB PO SCH (21:00)
[2019-01-12] MEDS ORDERED: TAMSULOSIN 0.4 MG CAP.ER.24H PO SCH (21:00)
[2019-01-13] MEDS: ALBUTEROL NEBULIZED 2.5 MG/3 ML INHALATION PRN ×2 (00:33→09:08)
[2019-01-13] MEDS: ACYCLOVIR SODIUM 850 MG in SODIUM CHLORIDE 0.9% 250 ML IV SCH ×2 (01:35→09:54)
[2019-01-13] MEDS ORDERED: clonazePAM 0.5 MG TAB PO STA (03:10)
[2019-01-13] MEDS: IPRATROPIUM-ALBUTEROL 3 ML NEB INHALATION SCH ×6 (04:34→15:38)
[2019-01-13] MEDS: VANCOMYCIN 1,500 MG in SODIUM CHLORIDE 0.9% 250 ML IVPB SCH ×2 (05:15→11:48)
[2019-01-13] MEDS: clonazePAM 0.5 MG TAB PO SCH (08:09)
[2019-01-13] MEDS: predniSONE 5 MG TAB PO SCH (08:09)
[2019-01-13] MEDS: LACTULOSE 20 GM/30 ML CUP PO SCH (08:09)
[2019-01-13] MEDS: MORPHINE SULFATE ER 15 MG TABLET PO SCH ×2 (09:54)
[2019-01-13] MEDS ORDERED: VANCOMYCIN TROUGH DUE 1 EACH MISC MISCELLANE ONE (11:00)
[2019-01-13 11:41] LABS: African American GFR (CKD) >90 (>60 ml/min/1.73 sqM)
[2019-01-13] MEDS: HYDROcodone/APAP 10-325MG 1 EACH TAB PO PRN ×2 (11:44→17:22)
--- NOTE | 2019-01-13 11:53 | XR ---
EXAMINATION TYPE: XR chest 2V DATE OF EXAM: 01/13/2019 COMPARISON: 01/11/2019 HISTORY: Shortness of breath and COPD TECHNIQUE: Frontal and lateral views of the chest are obtained. FINDINGS: Again there is pulmonary hyperinflation and flattening of diaphragms indicative of underly ing COPD. There is peribronchial cuffing within the right lower lobe p most pronounced on the lateral view with linear airspace disease. Very small hiatal hernia is noted. Cardia mediastinal silhouette is stable and nonenlarged. IMPRESSION: Peribronchial cuffing surrounding the bronchus intermedius and linear airspace disease. Considerations are for acute bronchitis or chronic reactive airway disease in this patient with under lying COPD.
[2019-01-13 13:32] VITALS: BP 156/92; RESP 22; TEMP 97.9
[2019-01-13 15:36] VITALS: PULSE 88
--- NOTE | 2019-01-13 16:24 | P.HPIM ---
History of Present Illness H&P Date: 01/13/19 Chief Complaint: Shortness of breath This is a 58-year-old male resident of [facility], presented to the ER with complaints of worsening shortness of breath, headache, recent boil on right buttock-recently attempted I/D, in a patient with history of atrial fibrillation, asthma/COPD, gastroesophageal reflux disease, hyperlipidemia, prostate disorder, chronic respiratory failure, anxiety, paranoia and multiple other medical issues. Patient reports that the nurse taking care of him at the [facility] had been diagnosed with bacterial meningitis 3 weeks ago And was concerned that he might also have the same related to his exposure. Denies fever, denies chills. Denies cough, denies hemoptysis. Right buttock site of prior abscesses currently without induration, purplish in color, no drainage, denies tenderness. Denies chest pain, palpitations. On admission temperature 100.4, resolved. Receives IV Decadron, IV Reglan, Benadryl and magnesium in the ER. EKG normal sinus rhythm. Brain CT nonacute. Pelvis CT) buttock soft tissue swelling without fluid density or gas density on no mass, no adenopathy, no acute vascular findings, no focal skeletal lesions. Initial chest x-ray nonacute .Follow-up chest x-ray suggestive of possible bronchitis with underlying COPD. Maintained on IV Rocephin, IV acyclovir. Evaluated by neurology with neuro workup completed. Lumbar puncture negative. Final CSF and Blood cx pending. Afebrile, normal WBC 's. Acyclovir and morphine discontinued as per neurology. Headache possibly induced by morphine. Pain has been controlled by norco for greater for 48 hours. Headaches have resolved. Maintained on nebulized bronchodilators scheduled and prn and IV antibiotics with steroids, significant clinical improvement. Patient has been cleared by neurology for discharge. Patient is being discharged to [facility] in a stable condition with guarded prognosis. Review of Systems ROS Statement: Those systems with pertinent positive or pertinent negative responses have been documented in the HPI. ROS Other: All systems not noted in ROS Statement are negative. Past Medical History Past Medical History: Atrial Fibrillation, Asthma, COPD, GERD/Reflux, Hyperlipidemia, Pneumonia, Prostate Disorder, Respiratory Disorder Additional Past Medical History / Comment(s): Chronic respiratory failure, ster oid and oxygen dependent, ARDS, hypoxemia, chronic SOB, bilateral leg edema, chronic low back pain with sciatica R buttock, chronic cervical pain, numbness/tingling L arm d/t herniated cervical discs, R rotator cuff pain/dysfunction, muscle weakness/leg weakness, R eye blurred vision d/t corneal injury and L eye has start of cataract with limited vision, current abscess R buttock. History of Any Multi-Drug Resistant Organisms: None Reported Past Surgical History: Adenoidectomy, Back Surgery, Tonsillectomy Additional Past Surgical History / Comment(s): Trach/peg insertion and since removed, abscesses buttocks and R cheek drained, bronchoscopies/washings, colonoscopy with benign polypectomy. Past Anesthesia/Blood Transfusion Reactions: No Reported Reaction Smoking Status: Former smoker - Past Family History Mother Family Medical History: COPD Additional Family Medical History / Comment(s): Mother of COPD at the age of 80yrs. Father Family Medical History: Myocardial Infarction ([place]) Additional Family Medical History / Comment(s): Father of a [place] at the age of 75yrs. Medications and Allergies Home Medications Medication Instructions Recorded Confirmed Type Acetaminophen Tab [Tylenol] 650 mg PO Q4H PRN 08/19/18 01/11/19 History Aspirin EC [Ecotrin] 325 mg PO DAILY@0900 08/19/18 01/11/19 History Atorvastatin [Lipitor] 20 mg PO HS@2100 08/19/18 01/11/19 History Cholecalciferol [Vitamin D3 (25 1,000 unit PO DAILY@0900 08/19/18 01/11/19 History Mcg = 1000 Iu)] Docusate [Colace] 100 mg PO DAILY@0900 08/19/18 01/11/19 History Ketoconazole 2% Shampoo [Nizoral] 1 applic TOPICAL MOTH 08/19/18 01/11/19 History Lactulose 20 gm PO DAILY@0900 08/19/18 01/11/19 History Magnesium Hydroxide [Milk of 2,400 mg PO DAILY PRN 08/19/18 01/11/19 History Magnesia] Mylanta Double Strength 10 ml PO Q4H PRN 08/19/18 01/11/19 History Pantoprazole [Protonix] 40 mg PO DAILY@0600 08/19/18 01/11/19 History QUEtiapine FUMARATE [SEROquel] 300 mg PO HS@2100 01/16/19 06/10/19 History SUMAtriptan SUCCINATE [Imitrex] 100 mg PO Q24H PRN 08/19/18 01/11/19 History Tamsulosin [Flomax] 0.4 mg PO HS@2100 08/19/18 01/11/19 History predniSONE 5 mg PO DAILY@0900 #0 08/22/18 01/11/19 Rx Bisacodyl 10 mg RECTAL DAILY PRN 01/11/19 01/11/19 History Loperamide HCl [Imodium A-D] 2 mg PO DAILY PRN 01/11/19 01/11/19 History Budesonide-Formot 160-4.5 Mcg 2 puff INHALATION BID #1 inhaler 01/13/19 Rx [Symbicort 160-4.5 Mcg Inhaler] Cefuroxime Axetil [Ceftin] 500 mg PO BID #10 tab 01/13/19 Rx HYDROcodone/APAP 10-325MG [[place] 1 each PO Q6H PRN #12 tab 01/13/19 Rx 10-325] Ipratropium-Albuterol Nebulize 3 ml INHALATION QID ampul.neb 01/13/19 Rx [Duoneb 0.5 mg-3 mg/3 ml Soln] Ipratropium-Albuterol Nebulize 3 ml INHALATION RT-Q4H PRN #1 01/13/19 01/11/19 Rx [Duoneb 0.5 mg-3 mg/3 ml Soln] clonazePAM [KlonoPIN] 0.5 mg PO Q12H #6 tab 01/13/19 Rx Allergies Allergy/AdvReac Type Severity Reaction Status Date / Time No Known Allergies Allergy Verified 01/11/19 16:10 Physical Exam Vitals: Vital Signs Temp Pulse Pulse Resp BP Pulse Ox 01/13/19 09:22 84 01/13/19 09:08 76 01/13/19 06:43 98.0 F 103 H 20 113/81 92 L 01/13/19 06:22 93 01/13/19 06:13 93 01/13/19 03:11 98.3 F 114 H 22 143/82 95 01/13/19 00:43 75 01/13/19 00:34 75 01/12/19 23:25 75 01/12/19 21:41 97.7 F 74 16 134/90 96 01/12/19 19:51 72 01/12/19 19:43 76 20 01/12/19 17:23 98.5 F 72 16 145/92 94 L 01/12/19 15:23 72 01/12/19 15:12 72 16 95 01/12/19 13:47 98.4 F 118 H 18 146/80 93 L 01/12/19 11:00 69 01/12/19 10:50 81 Intake and Output 01/12/19 01/13/19 01/13/19 22:59 06:59 14:59 Intake Total 200 Output Total 775 Balance -575 Intake: Oral 200 Output: Urine 775 Other: Voiding Method Bedside Commode Bedside Commode # Voids 2 1 PHYSICAL EXAM: VITAL SIGNS: As above GENERAL: Sitting up at side of bed, eating, no acute distress HEENT: Conjunctivae normal. eyes normal. Mucosa moist NECK: No JVD. No thyroid enlargement. No LNs CARDIOVASCULAR: S1, S2 regular.. No murmur RESPIRATION: Breath sounds diminished in the bases. No rhonchi, positive scattered crackles throughout. No bronchial breathing. ABDOMEN: Soft, nontender . No guarding. no masses palpable. No ascites, No hepatosplenomegaly.Bowel sounds heard. LEGS: No edema. no swelling PSYCHIATRY: Alert and oriented ?-3, mood and affect normal. NERVOUS SYSTEM: Cranial N 2-12 grossly normal. Moves all 4 limbs. No focal deficits. Strength and sensation grossly intact.. Skin: Right buttock without induration or drainage, purplish bruise. Nontender. Lymphatic system. No LN neck axilla or groin. Results CBC & Chem 7: 01/12/19 11:28 01/13/19 10:49 Labs: Abnormal Lab Results - Last 24 Hours (Table) 01/12/19 01/12/19 Range/Units 11:28 11:28 RBC 3.88 L (4.30-5.90) m/uL Hgb 11.0 L (13.0-17.5) gm/dL Hct 37.1 L (39.0-53.0) % MCHC 29.7 L (31.0-37.0) g/dL Carbon Dioxide 39 H (22-30) mmol/L BUN 22 H (9-20) mg/dL Creatinine 0.58 L (0.66-1.25) mg/dL Glucose 123 H (74-99) mg/dL Microbiology - Last 24 Hours (Table) 01/11/19 22:58 CSF Gram Stain - Preliminary Cerebral Spinal Fluid CSF Culture - Preliminary 01/11/19 21:34 Blood Culture - Preliminary Blood No Growth after 24 hours Thrombosis Risk Factor Assmnt - Choose All That Apply Any of the Below Risk Factors Present?: Yes Each Factor Represents 1 point: Abnormal pulmonary function (COPD), Age 41-60 years, Obesity (BMI >25), Serious lung disease incl. pneumonia (< 1month) Other Risk Factors: No Other congenital or acquired thrombophilia - If yes, enter type in comment: No Thrombosis Risk Factor Assessment Total Risk Factor Score: 4 Thrombosis Risk Factor Assessment Level: Moderate Risk Assessment and Plan Assessment: -Migraine Headaches, resolved, suspect morphine sulfate induced in a patient who takes 10 mg 3 times a day. No evidence of meningitis -Right buttock site of recent attempted I&D, no signs of cellulitis, no abscess;bruised -Chronic neck and low back pain Plan: Continue current medication regime ,monitoring and symptomatic treatment. Significant clinical improvement. Cleared by neurology for discharge. Patient is being discharged back to [facility] in stable condition with guarded prognosis. The impression and plan of care has been dictated as directed. : I performed a history and examination of this patient, discussed the same with the dictator. I agree with the dictator's note ,documented as a scribe. Any additional findings or plans will be noted. Time taken: 35 minutes
--- NOTE | 2019-01-13 16:26 | P.DS ---
Providers Date of admission: 01/11/19 21:53 Expected date of discharge: 01/13/19 Attending physician: Brandon Chavez Consults: 01/11/19 21:55 Consult Physician Urgent Consulting Provider: Amanda Dickens Consult Reason/Comments: intractable cephalgia, pyrexia Do you want consulting provider notified?: Yes Primary care physician: [facility] Course: Please refer to my H&P for full details and for final diagnoses. Patient Condition at Discharge: Stable Plan - Discharge Summary Discharge Rx Participant: No New Discharge Prescriptions: New Ipratropium-Albuterol Nebulize [Duoneb 0.5 mg-3 mg/3 ml Soln] 3 ml INHALATION QID ampul.neb HYDROcodone/APAP 10-325MG [[place] 10-325] 1 each PO Q6H PRN #12 tab PRN Reason: Pain Budesonide-Formot 160-4.5 Mcg [Symbicort 160-4.5 Mcg Inhaler] 2 puff INHALATION BID #1 inhaler Cefuroxime Axetil [Ceftin] 500 mg PO BID #10 tab Continue SUMAtriptan SUCCINATE [Imitrex] 100 mg PO Q24H PRN PRN Reason: Migraine Headache Magnesium Hydroxide [Milk of Magnesia] 2,400 mg PO DAILY PRN PRN Reason: Constipation Acetaminophen Tab [Tylenol] 650 mg PO Q4H PRN PRN Reason: Pain Or Fever > 100.5 Tamsulosin [Flomax] 0.4 mg PO HS@2100 Cholecalciferol [Vitamin D3 (25 Mcg = 1000 Iu)] 1,000 unit PO DAILY@0900 QUEtiapine FUMARATE [SEROquel] 300 mg PO HS@2100 Pantoprazole [Protonix] 40 mg PO DAILY@0600 Lactulose 20 gm PO DAILY@0900 Ketoconazole 2% Shampoo [Nizoral] 1 applic TOPICAL MOTH Docusate [Colace] 100 mg PO DAILY@0900 Atorvastatin [Lipitor] 20 mg PO HS@2100 Aspirin EC [Ecotrin] 325 mg PO DAILY@0900 Mylanta Double Strength 10 ml PO Q4H PRN PRN Reason: Indigestion predniSONE 5 mg PO DAILY@0900 #0 Loperamide HCl [Imodium A-D] 2 mg PO DAILY PRN PRN Reason: Diarrhea Bisacodyl 10 mg RECTAL DAILY PRN PRN Reason: Constipation clonazePAM [KlonoPIN] 0.5 mg PO Q12H #6 tab Changed Ipratropium-Albuterol Nebulize [Duoneb 0.5 mg-3 mg/3 ml Soln] 3 ml INHALATION RT-Q4H PRN #1 PRN Reason: Shortness Of Breath Discontinued Morphine Sulfate ER [Ms Contin] 15 mg PO Q8HR #90 tablet Albuterol Sulfate [Proair Hfa] 2 puff INHALATION RT-Q6H PRN PRN Reason: Shortness Of Breath Discharge Medication List Acetaminophen Tab [Tylenol] 650 mg PO Q4H PRN 08/19/18 [History] Aspirin EC [Ecotrin] 325 mg PO DAILY@89908/19/18 [History] Atorvastatin [Lipitor] 20 mg PO HS@209908/19/18 [History] Cholecalciferol [Vitamin D3 (25 Mcg = 1000 Iu)] 1,000 unit PO DAILY@89908/19/18 [History] Docusate [Colace] 100 mg PO DAILY@89908/19/18 [History] Ketoconazole 2% Shampoo [Nizoral] 1 applic TOPICAL MOTH 08/19/18 [History] Lactulose 20 gm PO DAILY@89908/19/18 [History] Magnesium Hydroxide [Milk of Magnesia] 2,400 mg PO DAILY PRN 08/19/18 [History] Mylanta Double Strength 10 ml PO Q4H PRN 08/19/18 [History] Pantoprazole [Protonix] 40 mg PO DAILY@0608/19/18 [History] QUEtiapine FUMARATE [SEROquel] 300 mg PO HS@209908/19/18 [History] SUMAtriptan SUCCINATE [Imitrex] 100 mg PO Q24H PRN 08/19/18 [History] Tamsulosin [Flomax] 0.4 mg PO HS@209908/19/18 [History] predniSONE 5 mg PO DAILY@0900 #0 08/22/18 [Rx] Bisacodyl 10 mg RECTAL DAILY PRN 01/11/19 [History] Loperamide HCl [Imodium A-D] 2 mg PO DAILY PRN 01/11/19 [History] Budesonide-Formot 160-4.5 Mcg [Symbicort 160-4.5 Mcg Inhaler] 2 puff INHALATION BID #1 inhaler 01/13/19 [Rx] Cefuroxime Axetil [Ceftin] 500 mg PO BID #10 tab 01/13/19 [Rx] HYDROcodone/APAP 10-325MG [[place] 10-325] 1 each PO Q6H PRN #12 tab 01/13/19 [Rx] Ipratropium-Albuterol Nebulize [Duoneb 0.5 mg-3 mg/3 ml Soln] 3 ml INHALATION QID ampul.neb 01/13/19 [Rx] Ipratropium-Albuterol Nebulize [Duoneb 0.5 mg-3 mg/3 ml Soln] 3 ml INHALATION RT-Q4H PRN #1 01/13/19 [Rx] clonazePAM [KlonoPIN] 0.5 mg PO Q12H #6 tab 01/13/19 [Rx] Follow up Appointment(s)/Referral(s): Cortez Todd MD [Primary Care Provider] - 3 Days Activity/Diet/Wound Care/Special Instructions: [facility] Diet: Regular Activity: as tolerated cbc,bmp in 3 days Discharge Disposition: TRANSFER TO SNF/ECF
[2019-01-14] MEDS ORDERED: VANCOMYCIN 1,500 MG in SODIUM CHLORIDE 0.9% 250 ML IVPB SCH (09:00)
== END 2019-01-13 18:36 ==
LOC: EC 14:57 → UNDOADMOB 21:53 → 4MS4W 21:53
PROVIDERS: ADMIT Family Medicine; ATTEND Family Medicine
DX: J44.1 Chronic obstructive pulmonary disease with (acute) exacerbation (principal); J44.0 Chronic obstructive pulmonary disease with (acute) lower respiratory infection; J20.9 Acute bronchitis, unspecified; G43.909 Migraine, unspecified, not intractable, without status migrainosus; L02.31 Cutaneous abscess of buttock; K21.9 Gastro-esophageal reflux disease without esophagitis; M50.20 Other cervical disc displacement, unspecified cervical region; L03.317 Cellulitis of buttock; E78.5 Hyperlipidemia, unspecified; G89.29 Other chronic pain; I48.91 Unspecified atrial fibrillation; J96.11 Chronic respiratory failure with hypoxia; M54.41 Lumbago with sciatica, right side; Z87.891 Personal history of nicotine dependence; Z79.51 Long term (current) use of inhaled steroids; Z79.82 Long term (current) use of aspirin; Z79.899 Other long term (current) drug therapy; Z99.81 Dependence on supplemental oxygen
CPT/HCPCS: 96366 ×3; 96367 ×3; 96365; 96372; 96375 ×2; 62270; 99285; 36415; 94640 ×6; 93005 ×2; 84157; 83880; 80053; 80048; 82945; 85652; 82565; 83605; 83735; 85025 ×2; 80202; 85610; 85730; 86140; 89050; 87040; 87070; 87205; 71046 ×2; 72193; 70450; G0378 ×3; J3370 ×2; J1200; J1100; J2765; J0133 ×2; J2405; J0696 ×3; J2001; J3475; J7512 ×2; Q9967

== ENCOUNTER → 2019-08-25 | Outpatient (CLI) | payer OTHER ==
--- NOTE | 2019-09-06 08:02 | MM ---
Reason for exam: clinical finding. History: Family history of breast cancer in maternal aunt at age 45. Physical Findings: Nurse Summary: 1cm nodule in the left breast at the nipple (nurse david). MG 3D Diag Mammo W/Cad LT CC and MLO view(s) were taken of the left breast. Prior study comparison: July 16, 2019, left breast ultrasound. Presumably retroareolar density, likely gynecomastia, however incompletely visualized. The patient will be brought back to additional views and views of the right breast. ASSESSMENT: Incomplete: need additional imaging evaluation, BI-RAD 0 RECOMMENDATION: Special view mammogram. (right breast)
== END | disposition home or self-care (01) ==
LOC: RADMAMWWP 09:36
PROVIDERS: ATTEND Family Medicine
DX: N63.20 Unspecified lump in the left breast, unspecified quadrant (principal)
CPT/HCPCS: 77065; G0279; 77061

== ENCOUNTER → 2019-09-14 | Outpatient (CLI) | payer OTHER ==
--- NOTE | 2019-09-15 08:30 | MM ---
Reason for exam: additional evaluation requested from abnormal screening. Last mammogram was performed 1 month ago. History: Family history of breast cancer in maternal aunt at age 45. Physical Findings: Nurse Summary: 1cm nodule in the left breast at nipple (nurse dw). MG Diagnostic Mammo RT w CAD CC and MLO view(s) were taken of the right breast. Prior study comparison: August 25, 2019, left breast MG 3d diag mammo w/cad LT. Negative right breast mammogram. Probable gynecomastia left breast. 6 month follow up recommended. These results were verbally communicated with the patient and result sheet given to the patient on 09/14/19. ASSESSMENT: Probably benign, BI-RAD 3 RECOMMENDATION: Follow-up diagnostic mammogram and ultrasound in 6 months. (follow up diagnostic mammogram and ultrasound of the left breast in 6 months) Manage patient on a clinical basis.
== END | disposition home or self-care (01) ==
LOC: RADMAMWWP 14:18
PROVIDERS: ATTEND Family Medicine
DX: R92.8 Other abnormal and inconclusive findings on diagnostic imaging of breast (principal)
CPT/HCPCS: 77065

== ENCOUNTER 2021-05-08 09:30 | Inpatient (IN) | payer OTHER ==
[2021-05-08] MEDS ORDERED: SODIUM CHLORIDE 0.9% 1,000 ML IV STA (09:58)
[2021-05-08] MEDS ORDERED: MORPHINE SULFATE 4 MG/ML SYRINGE IVP STA (10:08)
--- NOTE | 2021-05-08 10:39 | ED ---
General Adult HPI - General Chief complaint: Skin/Abscess/Foreign Body Stated complaint: boil lt buttocks Time Seen by Provider: 05/08/21 09:33 Source: patient, EMS Mode of arrival: EMS Limitations: no limitations - History of Present Illness Initial comments: 60-year-old male with a past medical history of atrial fibrillation, end-stage COPD, hyperlipidemia, pneumonia, presents to the emergency room for a chief complaint of left buttock pain. Patient has had a boil on his buttock for about a week. He has been taking Bactrim. States he has had these in the past but this is worse than normal. Patient states it is very painful and he cannot lie on his buttock. He denies fevers or chills.Patient has no other complaints at this time including shortness of breath, chest pain, abdominal pain, nausea or vomiting, headache, or visual changes. - Related Data Home Medications Medication Instructions Recorded Confirmed Acetaminophen Tab [Tylenol] 650 mg PO Q4H PRN 08/19/18 05/08/21 Atorvastatin [Lipitor] 20 mg PO HS@219908/19/18 05/08/21 Mylanta Double Strength 10 ml PO Q4H PRN 08/19/18 05/08/21 Pantoprazole [Protonix] 40 mg PO DAILY@0600 08/19/18 05/08/21 Tamsulosin [Flomax] 0.4 mg PO HS@0 08/19/18 05/08/21 Albuterol Sulfate [Ventolin HFA] 2 puff INHALATION RT-Q6H PRN 05/08/21 05/08/21 Apixaban [Eliquis] 5 mg PO BID@0900,2100 05/08/21 05/08/21 Aspirin EC [Ecotrin Low Dose] 81 mg PO DAILY@0900 05/08/21 05/08/21 Calc/Mag/Zinc 2 tab PO DAILY@0900 05/08/21 05/08/21 Fluticasone/Umeclidin/Vilanter 1 puff INHALATION RT-DAILY@0900 05/08/21 05/08/21 [Trelegy Ellipta 100-62.5-25] Furosemide [Lasix] 20 mg PO DAILY@0600 05/08/21 05/08/21 HYDROcodone/APAP 10-325MG [[place] 1 tab PO TID@0500,1300,2100 05/08/21 05/08/21 10-325] Hydrocortisone Pr Cream 1 applic RECTAL BID 05/08/21 05/08/21 [Proctosol-Hc 2.5%] Lactose-Reduced Food [Ensure Plus] 1 can PO BID@0900,1300 05/08/21 05/08/21 Lidocaine 2% Ling 5 ml IM DAILY PRN 05/08/21 05/08/21 Melatonin 15 mg PO HS@2200 05/08/21 05/08/21 Montelukast [Singulair] 10 mg PO DAILY@0900 05/08/21 05/08/21 Nitroglycerin Sl Tabs [Nitrostat] 0.4 mg SUBLINGUAL Q5M PRN 05/08/21 05/08/21 Phenyleph/Mineral Oil/Petrolat 1 applic RECTAL Q12H PRN 05/08/21 05/08/21 [Preparation H Ointment] Potassium Chloride [Klor-Con 10 ER] 20 meq PO DAILY@0900 05/08/21 05/08/21 Psyllium Husk 100% [Metamucil 6 gm PO DAILY@0900 05/08/21 05/08/21 Packet] Sennosides/Docusate Sodium [Senna 2 cap PO DAILY@0900 05/08/21 05/08/21 Plus 8.6-50 mg Softgel] Sulfamethox-Tmp 800-160Mg [Bactrim 1 tab PO BID@0900,2100 05/08/21 05/08/21 DS 800-160 mg] Topiramate [Topamax] 50 mg PO BID@0900,1700 05/08/21 05/08/21 Trihexyphenidyl [Artane] 2 mg PO TID@0600,1400,2200 05/08/21 05/08/21 acetaZOLAMIDE [Diamox] 250 mg PO DAILY@0900 05/08/21 05/08/21 busPIRone HCl [Buspar] 10 mg PO TID@0600,1400,2200 05/08/21 05/08/21 diazePAM [Valium] 2 mg PO TID@0500,1100,1700 05/08/21 05/08/21 metFORMIN HCL [Glucophage XR] 750 mg PO DAILY@1500 05/08/21 05/08/21 tiZANidine HCL [Zanaflex] 4 mg PO HS 05/08/21 05/08/21 tiZANidine [Zanaflex] 2 mg PO Q6H PRN 05/08/21 05/08/21 Previous Rx's Medication Instructions Recorded Ipratropium-Albuterol Nebulize 3 ml INHALATION RT-Q4H PRN #1 01/13/19 [Duoneb 0.5 mg-3 mg/3 ml Soln] Allergies Allergy/AdvReac Type Severity Reaction Status Date / Time tiotropium Allergy Unknown Verified 05/08/21 14:15 [From Spiriva with HandiHaler] Review of Systems ROS Statement: Those systems with pertinent positive or pertinent negative responses have been documented in the HPI. ROS Other: All systems not noted in ROS Statement are negative. Past Medical History Past Medical History: Atrial Fibrillation, COPD, Hyperlipidemia, Pneumonia, Prostate Disorder Additional Past Medical History / Comment(s): Chronic respiratory failure, steroid and oxygen dependent, ARDS, hypoxemia, chronic SOB, bilateral leg edema, chronic low back pain with sciatica R buttock, chronic cervical pain, numbness/tingling L arm d/t herniated cervical discs, R rotator cuff pain/dysfunction, muscle weakness/leg weakness, R eye blurred vision d/t corneal injury and L eye has start of cataract with limited vision, current abscess R buttock. History of Any Multi-Drug Resistant Organisms: None Reported Past Surgical History: Back Surgery Additional Past Surgical History / Comment(s): tracheostomy & removal Past Anesthesia/Blood Transfusion Reactions: No Reported Reaction Past Psychological History: Anxiety Smoking Status: Former smoker Past Alcohol Use History: None Reported Past Drug Use History: None Reported - Past Family History Mother Family Medical History: COPD Father Family Medical History: Myocardial Infarction ([place]) Additional Family Medical History / Comment(s): Father of a [place] at the age of 75yrs. General Exam Limitations: no limitations General appearance: alert, in no apparent distress Head exam: Present: atraumatic Eye exam: Present: normal appearance, PERRL, EOMI. Absent: scleral icterus, conjunctival injection ENT exam: Present: normal exam, mucous membranes moist Neck exam: Present: normal inspection, full ROM. Absent: tenderness Respiratory exam: Present: normal lung sounds bilaterally. Absent: respiratory distress, wheezes Cardiovascular Exam: Present: regular rate, normal rhythm, normal heart sounds GI/Abdominal exam: Present: soft, normal bowel sounds. Absent: distended, tenderness Rectal exam: Present: other (abscess/cellulitis L buttock) Course Vital Signs 05/08/21 05/08/21 05/08/21 09:39 10:43 11:00 Temperature 98 F Pulse Rate 77 68 Respiratory 24 22 20 Rate Blood Pressure 151/96 116/84 O2 Sat by Pulse 92 L 98 Oximetry 05/08/21 05/08/21 12:00 13:00 Temperature Pulse Rate 68 67 Respiratory 20 20 Rate Blood Pressure 132/84 124/87 O2 Sat by Pulse 98 98 Oximetry Medical Decision Making - Medical Decision Making Vitals are stable. Patient is on 4 L which is normal for him. Physical exam pertinent for cellulitis of the left buttock extending in the perineum. CBC CMP unremarkable. CT abdomen and pelvis was obtained to evaluate abscess or cellulitis. This shows subcutaneous infection and/or cellulitis of the medial left gluteal region without well-formed fluid collection or abscess. There is also a finding of organoaxial volvulus and gas distended stomach. I discussed this case with Dr. York who requested we repeat a CT with only oral contrast. In the meantime I did speak with Dr. Simental for admission as patient does have cellulitis of the perineum area requiring IV antibiotics. - Lab Data Result diagrams: 05/08/21 10:56 05/08/21 10:56 Lab Results 05/08/21 05/08/21 05/08/21 Range/Units 10:56 10:56 10:56 WBC 8.3 (3.8-10.6) k/uL RBC 3.95 L (4.30-5.90) m/uL Hgb 11.9 L (13.0-17.5) gm/dL Hct 38.0 L (39.0-53.0) % MCV 96.2 (80.0-100.0) fL MCH 30.1 (25.0-35.0) pg MCHC 31.3 (31.0-37.0) g/dL RDW 12.9 (11.5-15.5) % Plt Count 315 (150-450) k/uL MPV 7.9 Neutrophils % 82 % Lymphocytes % 8 % Monocytes % 5 % Eosinophils % 3 % Basophils % 1 % Neutrophils # 6.9 (1.3-7.7) k/uL Lymphocytes # 0.7 L (1.0-4.8) k/uL Monocytes # 0.4 (0-1.0) k/uL Eosinophils # 0.2 (0-0.7) k/uL Basophils # 0.0 (0-0.2) k/uL Hypochromasia Slight Sodium 139 (137-145) mmol/L Potassium 3.8 (3.5-5.1) mmol/L Chloride 98 (98-107) mmol/L Carbon Dioxide 30 (22-30) mmol/L Anion Gap 11 mmol/L BUN 12 (9-20) mg/dL Creatinine 1.02 (0.66-1.25) mg/dL Est GFR (CKD-EPI)AfAm >90 (>60 ml/min/1.73 sqM) Est GFR (CKD-EPI)NonAf 79 (>60 ml/min/1.73 sqM) Glucose 120 H (74-99) mg/dL Plasma Lactic Acid Dennis 1.1 (0.7-2.0) mmol/L Calcium 9.3 (8.4-10.2) mg/dL Total Bilirubin 0.3 (0.2-1.3) mg/dL AST 19 (17-59) U/L ALT 8 (4-49) U/L Alkaline Phosphatase 92 (38-126) U/L Total Protein 6.6 (6.3-8.2) g/dL Albumin 3.6 (3.5-5.0) g/dL Disposition Clinical Impression: Cellulitis of buttock, Volvulus of stomach Disposition: ADMITTED IP TO THIS HOSP Is patient prescribed a controlled substance at d/c from ED?: No Referrals: Lona Maradiaga MD [Primary Care Provider] - 1-2 days Time of Disposition: 14:46
[2021-05-08 11:17] LABS: Basophils % (A) 1 %; Eosinophils # (A) 0.2 k/uL (0-0.7); Eosinophils % (A) 3 %; HGB 11.9 gm/dL (13.0-17.5); Hypochromasia Slight; Lymphocytes # (A) 0.7 k/uL (1.0-4.8); Lymphocytes % (A) 8 %; MCH 30.1 pg (25.0-35.0); MCHC 31.3 g/dL (31.0-37.0); MCV 96.2 fL (80.0-100.0); Mean Platelet Volume 7.9; Monocytes # (A) 0.4 k/uL (0-1.0); Monocytes % (A) 5 %; Neutrophils # (A) 6.9 k/uL (1.3-7.7); Neutrophils % (A) 82 %; Platelet Count 315 k/uL (150-450); RBC 3.95 m/uL (4.30-5.90); RDW 12.9 % (11.5-15.5); WBC 8.3 k/uL (3.8-10.6)
[2021-05-08 11:47] LABS: ALT 8 U/L (4-49); AST 19 U/L (17-59); African American GFR (CKD) >90 (>60 ml/min/1.73 sqM); Albumin 3.6 g/dL (3.5-5.0); Alkaline Phosphatase 92 U/L (38-126); Anion Gap 11 mmol/L; Blood Urea Nitrogen 12 mg/dL (9-20); Calcium 9.3 mg/dL (8.4-10.2); Carbon Dioxide 30 mmol/L (22-30); Chloride 98 mmol/L (98-107); Glucose 120 mg/dL (74-99); Non-African American GFR(CKD) 79 (>60 ml/min/1.73 sqM); Potassium 3.8 mmol/L (3.5-5.1); Sodium 139 mmol/L (137-145); Total Bilirubin 0.3 mg/dL (0.2-1.3); Total Protein 6.6 g/dL (6.3-8.2)
--- NOTE | 2021-05-08 12:55 | CT ---
EXAMINATION TYPE: CT abdomen pelvis w con DATE OF EXAM: 05/08/2021 COMPARISON: CT pelvis January 11, 2019 HISTORY: Lt buttocks boil, possible perirectal abscess, abd distention CT DLP: 905.2 mGycm, Automated Exposure Control for Dose Reduction was Utilized. CONTRAST: CT scan of the abdomen and pelvis is performed without oral but with IV Contrast, patient injected wi th 100 mL of Isovue 300. FINDINGS: LUNG BASES: Mild to moderate bibasilar linear scarring and/or atelectasis. There is 2.2 x 1.4 cm juana pheral nodule or rounded atelectasis as there is suggestion of central linear scarring axial image 7 that warrants nonurgent follow-up. Mild underlying emphysematous changes our likely present. LIVER/GB: Tiny hypodense lesion right hepatic lobe inferiorly axial image 33 is presumed benign. PANCREAS: No significant abnormality is seen. SPLEEN: No significant abnormality is seen. ADRENALS: No significant abnormality is seen. KIDNEYS: Symmetric cortical medullary uptake and excretion without hydronephrosis seen bilaterally. BOWEL: Gas distended stomach with abnormal twisting or organo-axial volvulus. No suspicious small or large bowel dilatation. PROSTATE/SEMINAL VESICLES: Mildly enlarged prostate bulging on bladder base. Scattered left-sided pel loyda phleboliths. LYMPH NODES: No greater than 1cm abdominal or pelvic lymph nodes are appreciated. OSSEOUS STRUCTURES: Sclerotic focus right proximal femur presumed benign bone island on image 58 is r edemonstrated. OTHER: Mild to moderate calcified plaque of the aorta extends into branch vessels. Moderate-sized fat -containing umbilical hernia redemonstrated. There is 1.6 x 1.0 cm thin-walled cyst abutting the skin surface in the posterior left gluteal region axial image 76 larger in size from prior study. No significant surrounding fat stranding. Suspect be nign dermatologic lesion. Alignment the medial inferior aspect of the left buttocks there is asymmetric mild skin thickening wi th asymmetric moderate fluid and fat stranding. No well-formed fluid collection or abscess. No suspic ious subcutaneous air. IMPRESSION: 1. Subcutaneous infection and/or cellulitis inferior medial left gluteal region without well-formed f luid collection or abscess. 2. There is organoaxial volvulus in gas distended stomach on current study. 3. Mild emphysematous change with mild to moderate bibasilar linear scarring and/or atelectasis. A pe ripheral nodular component right lung base favors round atelectasis, underlying nodule not excluded. Advise nonemergent contrast enhanced chest CT in prone position to further evaluate.
[2021-05-08] MEDS ORDERED: HYDROmorphone 0.5 MG/0.5 ML SYRINGE IVP STA (14:07)
[2021-05-08] MEDS ORDERED: BARIUM SULFATE 450 ML ORAL.SUSP BOTTLE PO PRN (14:11)
[2021-05-08] MEDS ORDERED: VANCOMYCIN IV PER PHARMACY 1 EACH MISC MISCELLANE PRN (14:14)
[2021-05-08] MEDS ORDERED: AMPICILLIN-SULBACTAM 3 GM in SODIUM CHLORIDE 0.9% 100 ML IVPB STA (14:14)
[2021-05-08] MEDS ORDERED: VANCOMYCIN 1,250 MG in SODIUM CHLORIDE 0.9% 250 ML IVPB STA (14:25)
[2021-05-08] MEDS ORDERED: NALOXONE 0.4 MG/ML 1 ML VIAL IV PRN (14:46)
[2021-05-08] MEDS ORDERED: tiZANidine 4 MG TAB PO PRN (14:48)
[2021-05-08] MEDS ORDERED: IPRATROPIUM-ALBUTEROL 3 ML NEB INHALATION PRN (14:48)
[2021-05-08] MEDS ORDERED: ALBUTEROL NEBULIZED 2.5 MG/3 ML INHALATION PRN (14:48)
[2021-05-08] MEDS ORDERED: ACETAMINOPHEN TAB 325 MG TAB PO PRN (14:48)
[2021-05-08] MEDS ORDERED: LIDOCAINE 2% IM PRN (14:48)
[2021-05-08] MEDS ORDERED: BENZOCAINE 20% HEMORRHOIDAL OINT 28GM RECTAL PRN (14:48)
--- NOTE | 2021-05-08 15:34 | CT ---
EXAMINATION TYPE: CT abdomen pelvis wo con DATE OF EXAM: 05/08/2021 COMPARISON: 05/08/2021 earlier exam INDICATION: Bariatric prep given. DLP: 448.8 mGycm, Automated exposure control for dose reduction was used. CONTRAST: 0 mL of Isovue 300. Study performed with Oral Contrast TECHNIQUE: Axial images were obtained from above the diaphragm to the pubic rami in the axial plane a t 5 mm thick sections. Reconstructed images are reviewed on the computer in the coronal plane. FINDINGS: Limited CT sections are obtained the lung bases. The lung bases are clear. CT ABDOMEN: The patient's organoaxial volvulus of the stomach appears stable in appearance Liver: Normal Spleen: Normal Pancreas: Normal Adrenal glands: The adrenal glands are normal. Gallbladder: Normal Kidneys: No masses are evident. No hydronephrosis is present. No cysts are present. These are alysia yed images obtained through the kidneys, which remain unremarkable. Aorta: Vascular calcification is within the aorta. Inferior vena cava: Normal. CT PELVIS: Loops of bowel within the abdomen and pelvis are normal. Scattered diverticuli are evident within th e sigmoid colon. Small amount of contrast is within the colon. Appendix: Normal as visualized. Urinary bladder: Fluid contrast levels present within urinary bladder. Bilateral ureteral jets are ev ident. Genitourinary structures: Osseous structures: No suspicious lytic or sclerotic lesions. Inflammatory changes are along the left gluteal fold. Focal abscess is not identified. Phlegmon may b e present near the perineum, series 201 image 83. IMPRESSIONS: 1. Stomach appears stable in position following contrast administration. Obstruction is not identifi ed. 2. Sigmoid diverticulosis. 3. Inflammatory changes along the inferior medial left buttocks near the perineum
[2021-05-08] MEDS: SODIUM CHLORIDE 0.9% 1,000 ML IV SCH (15:55)
[2021-05-08] MEDS: diazePAM 2 MG TAB PO SCH (17:01)
[2021-05-08] MEDS: TOPIRAMATE 25 MG TAB PO SCH (17:02)
[2021-05-08] MEDS: metFORMIN 500 MG TAB PO SCH (17:02)
[2021-05-08] MEDS: HYDROmorphone 0.5 MG/0.5 ML SYRINGE IVP PRN ×3 (17:47→23:45)
[2021-05-08] MEDS: SYMBICORT 80-4.5 MCG INHALER INHALATION SCH (20:38)
[2021-05-08] MEDS: AMPICILLIN-SULBACTAM 3 GM in SODIUM CHLORIDE 0.9% 100 ML IVPB SCH (20:46)
[2021-05-08] MEDS: ONDANSETRON 4 MG/2 ML VIAL IVP PRN (20:47)
[2021-05-08] MEDS: MELATONIN 5 MG TABLET PO SCH (20:51)
[2021-05-08] MEDS: TAMSULOSIN 0.4 MG CAP.ER.24H PO SCH (20:51)
[2021-05-08] MEDS: ATORVASTATIN 20 MG TAB PO SCH (20:52)
[2021-05-08] MEDS: busPIRone HCl 10 MG TAB PO SCH (20:53)
[2021-05-08] MEDS: HYDROcodone/APAP 10-325MG 1 EACH TAB PO SCH (21:55)
[2021-05-08] MEDS: HYDROCORTISONE 2.5% RECTAL CREAM 30 GM TUBE RECTAL SCH (21:56)
[2021-05-08] MEDS: tiZANidine 4 MG TAB PO SCH (21:57)
[2021-05-08] MEDS: TRIHEXYPHENIDYL 2 MG TAB PO SCH (21:57)
--- NOTE | 2021-05-08 23:12 | P.CONS ---
History of Present Illness - Reason for Consult Consult date: 05/08/21 left gluteal abscess Requesting physician: Zack Simental - Chief Complaint left gluteal pain x few days - History of Present Illness History of present illness : Patient is 60-year-old male presenting to the hospital this morning for evaluation of left gluteal pain currently patient mention he did have boil on his buttock for about a week while the patient has been taking Bactrim however he has noticed the area becoming more swollen painful patient is unlikely to be throbbing almost 7-8 out of 10 and no radiation the patient have a difficulty lying on his buttock he denies high- grade fever or any chills has been complaining of some shortness of breath and have occasional cough with the symptom the patient presented to the hospital presented to the hospital patient has been afebrile and no fever has been recorded subsequently patient did have a normal white count kidney function has been normal gamez PCR was negative patient did have a CT of abdominal pelvis which did shows inflammatory changes along the inferior medial left buttock near the perineum but did not mention any drainable abscess patient has been admitted to the hospital the patient was started on vancomycin and Unasyn infectious disease was consulted for further management of antibiotic therapy patient did also have evidence of volvulus of the stomach for which general surgery has been consulted Review of system: CONSTITUTIONAL: Positive for weakness however denies fever. EYES: No complaint. ENT: No complaint. RESPIRATORY: No complaint. CARDIOVASCULAR: No complaint. GENITOURINARY: No complaint. GASTROINTESTINAL: As per history of present illness. MUSCULOSKELETAL: No complaint. INTEGUMENTARY: As per history of present illness PSYCHOLOGIC: No complaint. ENDOCRINE: No complaint. NEUROLOGIC: No complaint. Past medical history : Reviewed, documented below Past surgical history : Reviewed, documented below Social history: Reviewed, documented below Medications: Reviewed, as documented below EXAMINATION: Vital sigans= Reviewed and documented below GENERAL DESCRIPTION: Middle-aged male lying in bed, no distress. No tachypnea or accessory muscle of respiration use. HEENT: Shows Pallor , no scleral icterus. Oral mucous membrane is dry. NECK: Trachea central, no thyromegaly. LUNGS: Unlabored breathing. Coarse breath sounds bilaterally. No wheeze or cr ackle. HEART: S1, S2, regular rate and rhythm. ABDOMEN: Soft, no tenderness , guarding or rigidity , left gluteal area did have an area of induration and open wound with some drainage and is tender to touch EXTREMITIES: No edema of feet. SKIN: No rash, no masses palpable. NEUROLOGICAL: The patient is awake, alert, oriented x3, mood and affect normal. LABS AND RADIOLOGY: Reviewed results see below Assessment :1- Patient with her left gluteal abscess and cellulitis in this patient started with a small pimple likely streptococcal disease underlying chronic infection looks like benign detail excluded 2-patient with abnormal CT suspicious for volvulus of the stomach for which general surgery is on the case Plan: 1-vancomycin pharmacy to dose with a target trough of 15 while watching kidney function and Vanco trough closely. 2-Unasyn 3 g every 6 hours 3-await surgical drainage of the left gluteal area and deep cultures that will guide further Therapy We will follow on clinical condition and cultures to further adjust medication if needed Thank you for this consultation we will follow the patient along with you Past Medical History Past Medical History: Atrial Fibrillation, COPD, Hyperlipidemia, Pneumonia, Prostate Disorder Additional Past Medical History / Comment(s): Chronic respiratory failure, steroid and oxygen dependent, ARDS, hypoxemia, chronic SOB, bilateral leg edema, chronic low back pain with sciatica R buttock, chronic cervical pain, numbness/tingling L arm d/t herniated cervical discs, R rotator cuff pain/dysfunction, muscle weakness/leg weakness, R eye blurred vision d/t corneal injury and L eye has start of cataract with limited vision, current abscess R buttock. History of Any Multi-Drug Resistant Organisms: None Reported Past Surgical History: Back Surgery Additional Past Surgical History / Comment(s): tracheostomy & removal Past Anesthesia/Blood Transfusion Reactions: No Reported Reaction Past Psychological History: Anxiety Smoking Status: Former smoker Past Alcohol Use History: None Reported Past Drug Use History: None Reported - Past Family History Mother Family Medical History: COPD Father Family Medical History: Myocardial Infarction ([place]) Additional Family Medical History / Comment(s): Father of a [place] at the age of 75yrs. Medications and Allergies Home Medications Medication Instructions Recorded Confirmed Type Acetaminophen Tab [Tylenol] 650 mg PO Q4H PRN 08/19/18 05/08/21 History Atorvastatin [Lipitor] 20 mg PO HS@2200 08/19/18 05/08/21 History Mylanta Double Strength 10 ml PO Q4H PRN 08/19/18 05/08/21 History Pantoprazole [Protonix] 40 mg PO DAILY@0600 08/19/18 05/08/21 History Tamsulosin [Flomax] 0.4 mg PO HS@0 08/19/18 05/08/21 History Ipratropium-Albuterol Nebulize 3 ml INHALATION RT-Q4H PRN #1 01/13/19 05/08/21 Rx [Duoneb 0.5 mg-3 mg/3 ml Soln] Albuterol Sulfate [Ventolin HFA] 2 puff INHALATION RT-Q6H PRN 05/08/21 05/08/21 History Apixaban [Eliquis] 5 mg PO BID@0900,2100 05/08/21 05/08/21 History Aspirin EC [Ecotrin Low Dose] 81 mg PO DAILY@0900 05/08/21 05/08/21 History Calc/Mag/Zinc 2 tab PO DAILY@0900 05/08/21 05/08/21 History Fluticasone/Umeclidin/Vilanter 1 puff INHALATION RT-DAILY@0900 05/08/21 05/08/21 History [Trelegy Ellipta 100-62.5-25] Furosemide [Lasix] 20 mg PO DAILY@0600 05/08/21 05/08/21 History HYDROcodone/APAP 10-325MG [[place] 1 tab PO TID@0500,1300,2100 05/08/21 05/08/21 History 10-325] Hydrocortisone Pr Cream 1 applic RECTAL BID 05/08/21 05/08/21 History [Proctosol-Hc 2.5%] Lactose-Reduced Food [Ensure Plus] 1 can PO BID@0900,1300 05/08/21 05/08/21 History Lidocaine 2% Ling 5 ml IM DAILY PRN 05/08/21 05/08/21 History Melatonin 15 mg PO HS@219905/08/21 05/08/21 History Montelukast [Singulair] 10 mg PO DAILY@0900 05/08/21 05/08/21 History Nitroglycerin Sl Tabs [Nitrostat] 0.4 mg SUBLINGUAL Q5M PRN 05/08/21 05/08/21 History Phenyleph/Mineral Oil/Petrolat 1 applic RECTAL Q12H PRN 05/08/21 05/08/21 History [Preparation H Ointment] Potassium Chloride [Klor-Con 10 ER] 20 meq PO DAILY@0900 05/08/21 05/08/21 History Psyllium Husk 100% [Metamucil 6 gm PO DAILY@0900 05/08/21 05/08/21 History Packet] Sennosides/Docusate Sodium [Senna 2 cap PO DAILY@0900 05/08/21 05/08/21 History Plus 8.6-50 mg Softgel] Sulfamethox-Tmp 800-160Mg [Bactrim 1 tab PO BID@0900,2100 05/08/21 05/08/21 History DS 800-160 mg] Topiramate [Topamax] 50 mg PO BID@0900,1700 05/08/21 05/08/21 History Trihexyphenidyl [Artane] 2 mg PO TID@0600,1400,2200 05/08/21 05/08/21 History acetaZOLAMIDE [Diamox] 250 mg PO DAILY@0900 05/08/21 05/08/21 History busPIRone HCl [Buspar] 10 mg PO TID@0600,1400,2200 05/08/21 05/08/21 History diazePAM [Valium] 2 mg PO TID@0500,1100,1700 05/08/21 05/08/21 History metFORMIN HCL [Glucophage XR] 750 mg PO DAILY@1500 05/08/21 05/08/21 History tiZANidine HCL [Zanaflex] 4 mg PO HS 05/08/21 05/08/21 History tiZANidine [Zanaflex] 2 mg PO Q6H PRN 05/08/21 05/08/21 History Allergies Allergy/AdvReac Type Severity Reaction Status Date / Time tiotropium Allergy Unknown Verified 05/08/21 14:15 [From Spiriva with HandiHaler] Physical Exam Vitals: Vital Signs Temp Pulse Pulse Resp BP BP Pulse Ox 05/08/21 20:00 98.9 F 68 16 111/59 96 05/08/21 18:43 98 F 70 20 119/76 97 05/08/21 18:00 70 20 119/76 05/08/21 17:00 73 20 134/86 97 05/08/21 16:00 71 20 132/84 97 05/08/21 15:00 70 20 132/83 96 05/08/21 14:00 67 20 129/83 96 05/08/21 13:00 67 20 124/87 98 05/08/21 12:00 68 20 132/84 98 05/08/21 11:00 68 20 116/84 98 05/08/21 10:43 22 05/08/21 09:39 98 F 77 24 151/96 92 L Intake and Output 05/08/21 05/08/21 05/08/21 06:59 14:59 22:59 Other: Weight 72.575 kg Results CBC & Chem 7: 05/08/21 10:56 05/08/21 10:56 Labs: Abnormal Lab Results - Last 24 Hours (Table) 05/08/21 05/08/21 Range/Units 10:56 10:56 RBC 3.95 L (4.30-5.90) m/uL Hgb 11.9 L (13.0-17.5) gm/dL Hct 38.0 L (39.0-53.0) % Lymphocytes # 0.7 L (1.0-4.8) k/uL Glucose 120 H (74-99) mg/dL
[2021-05-08] MEDS: VANCOMYCIN 1,250 MG in SODIUM CHLORIDE 0.9% 250 ML IVPB SCH (23:44)
[2021-05-09] MEDS: AMPICILLIN-SULBACTAM 3 GM in SODIUM CHLORIDE 0.9% 100 ML IVPB SCH ×4 (02:56→19:57)
[2021-05-09] MEDS: HYDROmorphone 0.5 MG/0.5 ML SYRINGE IVP PRN ×6 (02:56→23:43)
[2021-05-09] MEDS: SODIUM CHLORIDE 0.9% 1,000 ML IV SCH ×2 (04:25→19:47)
[2021-05-09] MEDS: HYDROcodone/APAP 10-325MG 1 EACH TAB PO SCH ×3 (05:06→19:42)
[2021-05-09] MEDS: FUROSEMIDE 20 MG TAB PO SCH (05:07)
[2021-05-09] MEDS: diazePAM 2 MG TAB PO SCH ×3 (05:07→16:16)
[2021-05-09] MEDS: TRIHEXYPHENIDYL 2 MG TAB PO SCH ×3 (05:07→19:41)
[2021-05-09] MEDS: PANTOPRAZOLE 40 MG TABLET PO SCH (05:07)
[2021-05-09] MEDS: busPIRone HCl 10 MG TAB PO SCH ×3 (05:08→19:41)
[2021-05-09] MEDS: SYMBICORT 80-4.5 MCG INHALER INHALATION SCH ×2 (07:20→20:33)
[2021-05-09] MEDS: IPRATROPIUM 0.5 MG/2.5 ML NEBU INHALATION SCH ×4 (07:20→20:33)
[2021-05-09 08:56] LABS: African American GFR (CKD) >90 (>60 ml/min/1.73 sqM); Non-African American GFR(CKD) >90 (>60 ml/min/1.73 sqM)
[2021-05-09] MEDS ORDERED: NON FORMULARY DRUG (Lactose-Reduced Food [Ensure Plus] 237 ML Ml) PO SCH (09:00)
[2021-05-09] MEDS ORDERED: MAGNESIUM PO SCH (09:00)
[2021-05-09] MEDS ORDERED: CALCIUM PO SCH (09:00)
[2021-05-09] MEDS ORDERED: ZINC PO SCH (09:00)
[2021-05-09] MEDS: metFORMIN 500 MG TAB PO SCH ×2 (09:27→16:16)
[2021-05-09] MEDS: ASPIRIN 81 MG PO SCH (09:27)
[2021-05-09] MEDS: PSYLLIUM HUSK 100% 6 GM PACKET PO SCH (09:28)
[2021-05-09] MEDS: SENNOSIDES-DOCUSATE SODIUM 1 EACH TAB PO SCH (09:28)
[2021-05-09] MEDS: POTASSIUM CHLORIDE ER 20 MEQ TAB.ER PO SCH (09:28)
[2021-05-09] MEDS: TOPIRAMATE 25 MG TAB PO SCH ×2 (09:28→16:16)
[2021-05-09] MEDS: MONTELUKAST 10 MG TAB PO SCH (09:28)
[2021-05-09] MEDS: HYDROCORTISONE 2.5% RECTAL CREAM 30 GM TUBE RECTAL SCH ×2 (09:29→19:42)
[2021-05-09] MEDS: acetaZOLAMIDE 250 MG TAB PO SCH (09:29)
[2021-05-09] MEDS: BUTALB/APAP/CAFF 50-325-40MG TAB PO PRN (13:00)
[2021-05-09] MEDS: VANCOMYCIN 1,250 MG in SODIUM CHLORIDE 0.9% 250 ML IVPB SCH ×2 (13:01→23:44)
--- NOTE | 2021-05-09 13:23 | P.HPIM ---
History of Present Illness H&P Date: 05/09/21 Chief Complaint: Cellulitis HISTORY OF PRESENT ILLNESS This is a 60-year-old male patient of Dr. Maradiaga, long-term resident at [facility], with past medical history of end-stage COPD, stage IV, chronic hypoxic respiratory failure, Covid 19 infection December 2020, hyperlipidemia, chronic atrial fibrillation on long-term anticoagulation, gastroesophageal reflux disease, Parkinson's disease, diabetes mellitus type 2, generalized anxiety disorder, migraine headaches, benign prostatic hypertrophy. Patient has received treatment for cellulitis to the left gluteal area for which she was treated with Bactrim became swollen with increasing pain. Patient complains of a throbbing pain as well as migraine headache. No fever or chills. He has chronic shortn ess of breath but no worsening. Patient was brought into [facility] emergency center for evaluation. CAT scan with contrast revealed subcutaneous infection and/or cellulitis inferior medial left gluteal region without well formed fluid collection or abscess. There is organoaxial volvulus in gas distended stomach. WBC 8.3, hemoglobin 11.9, platelet count 315. Electrolytes and renal function normal. Blood sugar 120. Liver function tests are normal. Coronavirus PCR not detected. Patient admitted to the [facility] floor waiting in the observation unit and consult in place with general surgery and infectious disease. Patient has been seen by Dr. Hunter and on Unasyn and vancomycin. At this time, patient refuses to allow evaluation of his buttocks. REVIEW OF SYSTEMS Constitutional: No fever, no chills, no night sweats. No weight change. Chronic weakness, chronic fatigue no lethargy. No daytime sleepiness. EENT: Reports headache. No blurred vision or double vision, no loss of vision. No loss of Hearing, no ringing in the ears, no dizziness. No nasal drainage or congestion. No epistaxis. No sore throat. Lungs: Chronic shortness of breath, cough, no sputum production. No wheezing. Chronic dyspnea with minimal exertion. Cardiovascular: No chest pain, no lower extremity edema. No palpitations. No paroxysmal nocturnal dyspnea. No orthopnea. No lightheadedness or dizziness. No syncopal episodes. Abdominal: No abdominal pain. No nausea, vomiting. No diarrhea. No constipation. No bloody or tarry stools.. No loss of appetite. Genitourinary: No dysuria, increased frequency, urgency. No urinary retention. Musculoskeletal: No myalgias. Chronic muscle weakness, chronic gait dysfunction, no frequent falls. No back pain. No neck pain. Integumentary: Reported wounds, no lesions. No rash or pruritus. No unusual bruising. No change in hair or nails. Neurologic: No aphasia. No facial droop. No change in mentation. No head injury. No headache. No paralysis. No paresthesia. Psychiatric: No depression. No anxiety. No mood swings. Endocrine: No abnormal blood sugars. No weight change. No excessive sweating or thirst. No cold intolerance. SOCIAL HISTORY Patient has been a smoker one pack per day for greater than 30 years and quit 3 years ago. He denies any alcohol, marijuana or illicit drug use.. FAMILY HISTORY Father at age 75 from myocardial infarction. Mother at age 80 from COPD. Patient has 1 brother alive with COPD at 60 years of age. Patient has one sister with osteoarthritis with no other medical concerns.. PHYSICAL EXAMINATION Gen: This is a 60-year-old male patient, resting in bed and appears to be fairly comfortable. He is somewhat angry and upset, complains of headache and pain in the buttocks area HEENT: Head is atraumatic, normocephalic. Pupils equal, round. Sclerae is anicteric. NECK: Supple. No JVD. No lymphadenopathy. No thyromegaly. LUNGS: Diminished bilaterally. Bilateral rhonchi. No intercostal retractions. HEART: Regular rate and rhythm. No murmur. ABDOMEN: Soft. Bowel sounds are present. No masses. No tenderness. EXTREMITIES: No pedal edema. No calf tenderness. BUTTOCKS: Patient refuses examination of his buttocks. Nursing to obtain photos once he moves to [facility]. NEUROLOGICAL: Patient is awake, alert and oriented x3. Cranial nerves 2 through 12 are grossly intact. ASSESSMENT AND PLAN 1. Left gluteal abscess and cellulitis. Consult with infectious disease appreciated, continue Unasyn 3 g IV piggyback every 6 hours, vancomycin, p harmacy dosing, Wound Center consult, wound cultures, follow blood cultures. 2. Organoaxial volvulus in gas distended stomach. Consult with Dr. York. Patient is currently on a regular diet. 3. End-stage COPD. Continue DuoNeb treatments every 4 hours as needed, albuterol as needed, Symbicort 2 puffs twice daily. 4. Chronic hypoxic respiratory failure on home O2. Continue oxygen therapy. 5. Hyperlipidemia. Continue atorvastatin 20 mg at bedtime. 6. Chronic atrial fibrillation. Continue eliquis 5 mg twice daily if okay with general surgery. 7. Migraine headache. Continue Fioricet 1 every 4 hours as needed, Topamax 50 mg twice daily. 8. Parkinson's disease. Valium 2 mg 3 times daily, [place] 10 1 scheduled 3 times daily at 5 AM, 1 PM and 9 PM, Zanaflex 4 mg at bedtime and 2 mg every 6 hours as needed. 9. Benign prostatic hypertrophy. Continue Flomax 0.4 mg at bedtime. 10. Gastroesophageal reflux disease and GI prophylaxis. Continue Protonix 40 mg daily. 11. Diabetes mellitus type 2. Continue metformin 500 mg twice daily, on hold due to contrast, NovoLog scale before meals and at bedtime. 12. Hypertension. Continue Diamox 250 mg daily, Lasix 20 mg daily. 13. DVT prophylaxis. Eliquis if okay with general surgery. 14. COVID-19 testing negative. Patient has been hospitalized during a pandemic. Patient will be admitted to the hospital for a minimum of 2 night stay. DISCHARGE PLAN Return to [facility] under the care of Dr. Maradiaga. Impression and plan of care have been directed as dictated by the signing physician. Aggie Oliva nurse practitioner acting as scribe for signing physician. Past Medical History Past Medical History: Atrial Fibrillation, COPD, Hyperlipidemia, Pneumonia, Prostate Disorder Additional Past Medical History / Comment(s): Chronic respiratory failure, steroid and oxygen dependent, ARDS, hypoxemia, chronic SOB, bilateral leg edema, chronic low back pain with sciatica R buttock, chronic cervical pain, numbness/tingling L arm d/t herniated cervical discs, R rotator cuff pain/dysfunction, muscle weakness/leg weakness, R eye blurred vision d/t corneal injury and L eye has start of cataract with limited vision, current abscess R buttock. 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 Pt is oxygen dependent. He states lately he gets around by wheelchair. Smoking Status: Former smoker Past Alcohol Use History: None Reported Additional Past Alcohol Use History / Comment(s): Pt started smoking in 1971 and quit in December 2017. He states he drank as a younger person but none in years. Past Drug Use History: None Reported Additional Drug Use History / Comment(s): Pt states he has tried medical marijuana for pain control but no longer takes it. - Past Family History Mother Family Medical History: COPD Father Family Medical History: Myocardial Infarction ([place]) Additional Family Medical History / Comment(s): Father of a [place] at the age of 75yrs. Medications and Allergies Home Medications Medication Instructions Recorded Confirmed Type Acetaminophen Tab [Tylenol] 650 mg PO Q4H PRN 08/19/18 05/08/21 History Atorvastatin [Lipitor] 20 mg PO HS@0 08/19/18 05/08/21 History Mylanta Double Strength 10 ml PO Q4H PRN 08/19/18 05/08/21 History Pantoprazole [Protonix] 40 mg PO DAILY@0600 08/19/18 05/08/21 History Tamsulosin [Flomax] 0.4 mg PO HS@219908/19/18 05/08/21 History Ipratropium-Albuterol Nebulize 3 ml INHALATION RT-Q4H PRN #1 01/13/19 05/08/21 Rx [Duoneb 0.5 mg-3 mg/3 ml Soln] Albuterol Sulfate [Ventolin HFA] 2 puff INHALATION RT-Q6H PRN 05/08/21 05/08/21 History Apixaban [Eliquis] 5 mg PO BID@0900,2100 05/08/21 05/08/21 History Aspirin EC [Ecotrin Low Dose] 81 mg PO DAILY@0900 05/08/21 05/08/21 History Calc/Mag/Zinc 2 tab PO DAILY@0900 05/08/21 05/08/21 History Fluticasone/Umeclidin/Vilanter 1 puff INHALATION RT-DAILY@0900 05/08/21 05/08/21 History [Trelegy Ellipta 100-62.5-25] Furosemide [Lasix] 20 mg PO DAILY@0600 05/08/21 05/08/21 History HYDROcodone/APAP 10-325MG [[place] 1 tab PO TID@0500,1300,2100 05/08/21 05/08/21 History 10-325] Hydrocortisone Pr Cream 1 applic RECTAL BID 05/08/21 05/08/21 History [Proctosol-Hc 2.5%] Lactose-Reduced Food [Ensure Plus] 1 can PO BID@0900,1300 05/08/21 05/08/21 His tory Lidocaine 2% Ling 5 ml IM DAILY PRN 05/08/21 05/08/21 History Melatonin 15 mg PO HS@2200 05/08/21 05/08/21 History Montelukast [Singulair] 10 mg PO DAILY@0900 05/08/21 05/08/21 History Nitroglycerin Sl Tabs [Nitrostat] 0.4 mg SUBLINGUAL Q5M PRN 05/08/21 05/08/21 History Phenyleph/Mineral Oil/Petrolat 1 applic RECTAL Q12H PRN 05/08/21 05/08/21 History [Preparation H Ointment] Potassium Chloride [Klor-Con 10 ER] 20 meq PO DAILY@0900 05/08/21 05/08/21 History Psyllium Husk 100% [Metamucil 6 gm PO DAILY@0900 05/08/21 05/08/21 History Packet] Sennosides/Docusate Sodium [Senna 2 cap PO DAILY@0900 05/08/21 05/08/21 History Plus 8.6-50 mg Softgel] Sulfamethox-Tmp 800-160Mg [Bactrim 1 tab PO BID@0900,2100 05/08/21 05/08/21 History DS 800-160 mg] Topiramate [Topamax] 50 mg PO BID@0900,1700 05/08/21 05/08/21 History Trihexyphenidyl [Artane] 2 mg PO TID@0600,1400,2200 05/08/21 05/08/21 History acetaZOLAMIDE [Diamox] 250 mg PO DAILY@0900 05/08/21 05/08/21 History busPIRone HCl [Buspar] 10 mg PO TID@0600,1400,2200 05/08/21 05/08/21 History diazePAM [Valium] 2 mg PO TID@0500,1100,1700 05/08/21 05/08/21 History metFORMIN HCL [Glucophage XR] 750 mg PO DAILY@1500 05/08/21 05/08/21 History tiZANidine HCL [Zanaflex] 4 mg PO HS 05/08/21 05/08/21 History tiZANidine [Zanaflex] 2 mg PO Q6H PRN 05/08/21 05/08/21 History Allergies Allergy/AdvReac Type Severity Reaction Status Date / Time tiotropium Allergy Unknown Verified 05/08/21 14:15 [From Spiriva with HandiHaler] Physical Exam Vitals: Vital Signs Temp Pulse Pulse Resp BP BP Pulse Ox 05/09/21 07:20 96 05/09/21 04:49 98.7 F 61 18 99/58 97 05/08/21 20:00 98.9 F 68 16 111/59 96 05/08/21 18:43 98 F 70 20 119/76 97 05/08/21 18:00 70 20 119/76 05/08/21 17:00 73 20 134/86 97 05/08/21 16:00 71 20 132/84 97 05/08/21 15:00 70 20 132/83 96 05/08/21 14:00 67 20 129/83 96 05/08/21 13:00 67 20 124/87 98 05/08/21 12:00 68 20 132/84 98 Intake and Output 05/08/21 05/09/21 05/09/21 22:59 06:59 14:59 Intake Total 1890 Output Total 100 Balance 1790 Intake: Intake, IV Titration 1350 Amount Ampicillin-Sulbactam 3 gm 200 In Sodium Chloride 0.9% 100 ml @ 200 mls/hr IVPB Q6H MATTHEW Rx#:[id number] Sodium Chloride 0.9% 1, 900 000 ml @ 75 mls/hr IV . [id number] MATTHEW Rx#:[id number] Vancomycin 1,250 mg In 250 Sodium Chloride 0.9% 250 ml @ 125 mls/hr IVPB Q12H MATTHEW Rx#:[id number] Oral 540 Output: Urine 100 Other: Weight 72.575 kg Results CBC & Chem 7: 05/08/21 10:56 05/09/21 07:48 Thrombosis Risk Factor Assmnt - Choose All That Apply Each Factor Represents 1 point: Abnormal pulmonary function (COPD) Each Risk Factor Represents 2 Points: Age 61-74 years, Patient confined to bed Thrombosis Risk Factor Assessment Total Risk Factor Score: 5 Thrombosis Risk Factor Assessment Level: High Risk
--- NOTE | 2021-05-09 15:36 | P.GSCN ---
History of Present Illness Consult date: 05/09/21 History of present illness: CHIEF COMPLAINT: Left buttocks abscess HISTORY OF PRESENT ILLNESS: This is a 60-year-old male who presented to the hospital with complaints of a left buttocks abscess 1 week. He reports that it has been draining. He has been on antibiotics outpatient. He denies any history of MRSA. Denies any history of diabetes. He had a computed tomography scan of the abdomen and pelvis without contrast that showed concerns for a stomach volvulus. Surgical services consult regarding the stomach volvulus. Patient denies any abdominal pain. Denies any nausea or vomiting. Most of his pain is in the left buttocks. He denies any fever chills or sweats. Currently residing at [facility]. PAST MEDICAL HISTORY: Atrial Fibrillation, COPD, Hyperlipidemia, Pneumonia, Prostate Disorder, COPD, home O2 dependent, chronic respiratory failure PAST SURGICAL HISTORY: Back surgery, tracheostomy and removal MEDICATIONS: See list. ALLERGIES: See list. SOCIAL HISTORY: No illicit drug use. REVIEW OF SYSTEMS: CONSTITUTIONAL: Denies fever or chills. HEENT: Denies blurred vision, vision changes, or eye pain. Denies hemoptysis CARDIOVASCULAR: Denies chest pain or pressure. RESPIRATORY: No shortness of breath. GASTROINTESTINAL: See HPI for pertinent findings HEMATOLOGIC: Denies bleeding disorders. GENITOURINARY: Denies any blood in urine or increased urinary frequency. SKIN: Denies pruitis. Denies rash. PHYSICAL EXAM: VITAL SIGNS: Reviewed GENERAL: Well-developed in no acute distress. HEENT: No sclera icterus. Extraocular movements grossly intact. Moist buccal mucosa. Head is atraumatic, normocephalic. No nasal drainage. ABDOMEN: Soft. Nondistended. Nontender NEUROLOGIC: Alert and oriented. Cranial nerves II through XII grossly intact. Skin exam: Left buttocks abscess that goes into the perineum area. It is draining. Area of induration measuring about 3 x 2 cm. Tender with palpation LABORATORY DATA: WBC 8.3 hemoglobin 11.9 platelets 16 sodium 139 potassium 3.8 BUN 12 LFTs normal COVID-19 not detected IMAGING: Computed tomography scan without contrast shows subcutaneous infection and/or cellulitis inferior medial left gluteal region without well-formed fluid collection or abscess. There is organoaxial volvulus and gas distended stomach on current exam. Mild emphysematous change with mild to moderate bibasilar linear scarring and/or atelectasis. A peripheral nodular component of the right lung base favors round atelectasis underlying nodule not excluded computed tomography scan abdomen with oral contrast shows stomach appears stable in position following contrast administration. Obstruction is not identified. Sigmoid diverticulosis. Inflammatory changes along the inferior medial left buttocks near the perineum ASSESSMENT: 1. Stomach volvulus 2. Left buttocks abscess PLAN: -Recommend endoscopy regarding stomach volvulus when medically stable -No surgical intervention planned for left buttock abscess -Continue supportive care -Apply heat packs to left buttocks abscess -Continue antibiotics per ID Thank you for this consultation Physician Yoghurt Maker note has been reviewed by physician. Signing provider agrees with the documented findings, assessment, and plan of care. Past Medical History Past Medical History: Atrial Fibrillation, COPD, Hyperlipidemia, Pneumonia, Prostate Disorder Additional Past Medical History / Comment(s): Chronic respiratory failure, steroid and oxygen dependent, ARDS, hypoxemia, chronic SOB, bilateral leg edema, chronic low back pain with sciatica R buttock, chronic cervical pain, numbness/tingling L arm d/t herniated cervical discs, R rotator cuff pain/dysfunction, muscle weakness/leg weakness, R eye blurred vision d/t corneal injury and L eye has start of cataract with limited vision, current abscess R buttock. History of Any Multi-Drug Resistant Organisms: None Reported Past Surgical History: Back Surgery Additional Past Surgical History / Comment(s): tracheostomy & removal Past Anesthesia/Blood Transfusion Reactions: No Reported Reaction Past Psychological History: Anxiety Additional Psychological History / Comment(s): Lives in [facility] term [facility]. Pt is oxygen dependent. He states lately he gets around by wheelchair. Smoking Status: Former smoker Past Alcohol Use History: None Reported Additional Past Alcohol Use History / Comment(s): Pt started smoking in 1971 and quit in December 2017. He states he drank as a younger person but none in years. Past Drug Use History: None Reported Additional Drug Use History / Comment(s): Pt states he has tried medical marijuana for pain control but no longer takes it. - Past Family History Mother Family Medical History: COPD Father Family Medical History: Myocardial Infarction ([place]) Additional Family Medical History / Comment(s): Father of a [place] at the age of 75yrs. Medications and Allergies Home Medications Medication Instructions Recorded Confirmed Type Acetaminophen Tab [Tylenol] 650 mg PO Q4H PRN 08/19/18 05/08/21 History Atorvastatin [Lipitor] 20 mg PO HS@0 08/19/18 05/08/21 History Mylanta Double Strength 10 ml PO Q4H PRN 08/19/18 05/08/21 History Pantoprazole [Protonix] 40 mg PO DAILY@0600 08/19/18 05/08/21 History Tamsulosin [Flomax] 0.4 mg PO HS@0 08/19/18 05/08/21 History Ipratropium-Albuterol Nebulize 3 ml INHALATION RT-Q4H PRN #1 01/13/19 05/08/21 Rx [Duoneb 0.5 mg-3 mg/3 ml Soln] Albuterol Sulfate [Ventolin HFA] 2 puff INHALATION RT-Q6H PRN 05/08/21 05/08/21 History Apixaban [Eliquis] 5 mg PO BID@0900,209905/08/21 05/08/21 History Aspirin EC [Ecotrin Low Dose] 81 mg PO DAILY@0900 05/08/21 05/08/21 History Calc/Mag/Zinc 2 tab PO DAILY@0900 05/08/21 05/08/21 History Fluticasone/Umeclidin/Vilanter 1 puff INHALATION RT-DAILY@0900 05/08/21 05/08/21 History [Trelegy Ellipta 100-62.5-25] Furosemide [Lasix] 20 mg PO DAILY@0600 05/08/21 05/08/21 History HYDROcodone/APAP 10-325MG [[place] 1 tab PO TID@0500,1300,2100 05/08/21 05/08/21 History 10-325] Hydrocortisone Pr Cream 1 applic RECTAL BID 05/08/21 05/08/21 History [Proctosol-Hc 2.5%] Lactose-Reduced Food [Ensure Plus] 1 can PO BID@0900,1300 05/08/21 05/08/21 History Lidocaine 2% Ling 5 ml IM DAILY PRN 05/08/21 05/08/21 History Melatonin 15 mg PO HS@0 05/08/21 05/08/21 History Montelukast [Singulair] 10 mg PO DAILY@0900 05/08/21 05/08/21 History Nitroglycerin Sl Tabs [Nitrostat] 0.4 mg SUBLINGUAL Q5M PRN 05/08/21 05/08/21 History Phenyleph/Mineral Oil/Petrolat 1 applic RECTAL Q12H PRN 05/08/21 05/08/21 History [Preparation H Ointment] Potassium Chloride [Klor-Con 10 ER] 20 meq PO DAILY@0900 05/08/21 05/08/21 History Psyllium Husk 100% [Metamucil 6 gm PO DAILY@0900 05/08/21 05/08/21 History Packet] Sennosides/Docusate Sodium [Senna 2 cap PO DAILY@0900 05/08/21 05/08/21 History Plus 8.6-50 mg Softgel] Sulfamethox-Tmp 800-160Mg [Bactrim 1 tab PO BID@0900,2100 05/08/21 05/08/21 History DS 800-160 mg] Topiramate [Topamax] 50 mg PO BID@0900,1700 05/08/21 05/08/21 History Trihexyphenidyl [Artane] 2 mg PO TID@0600,1400,2200 05/08/21 05/08/21 History acetaZOLAMIDE [Diamox] 250 mg PO DAILY@0900 05/08/21 05/08/21 History busPIRone HCl [Buspar] 10 mg PO TID@0600,1400,2200 05/08/21 05/08/21 History diazePAM [Valium] 2 mg PO TID@0500,1100,1700 05/08/21 05/08/21 History metFORMIN HCL [Glucophage XR] 750 mg PO DAILY@1500 05/08/21 05/08/21 History tiZANidine HCL [Zanaflex] 4 mg PO HS 05/08/21 05/08/21 History tiZANidine [Zanaflex] 2 mg PO Q6H PRN 05/08/21 05/08/21 History Allergies Allergy/AdvReac Type Severity Reaction Status Date / Time tiotropium Allergy Unknown Verified 05/08/21 14:15 [From Spiriva with HandiHaler] Surgical - Exam Vital Signs Temp Pulse Resp BP Pulse Ox 98 F 77 24 151/96 92 L 05/08/21 09:39 05/08/21 09:39 05/08/21 09:39 05/08/21 09:39 05/08/21 09:39 Results - Labs 05/08/21 10:56 05/09/21 07:48 Diabetes panel 05/09/21 Range/Units 07:48 Creatinine 0.90 (0.66-1.25) mg/dL Pituitary panel 05/09/21 Range/Units 07:48 Creatinine 0.90 (0.66-1.25) mg/dL Adrenal panel 05/09/21 Range/Units 07:48 Creatinine 0.90 (0.66-1.25) mg/dL
[2021-05-09 15:52] VITALS: BMI 25.0
[2021-05-09 16:13] LABS: Glucose,Whole Blood 123 mg/dL (75-99)
[2021-05-09] MEDS: INSULIN ASPART (NovoLOG) 100 UNIT/ML VIAL SQ SCH ×2 (17:08→20:47)
[2021-05-09] MEDS: APIXABAN 5 MG TAB PO SCH (19:40)
[2021-05-09] MEDS: ATORVASTATIN 20 MG TAB PO SCH (19:40)
[2021-05-09] MEDS: TAMSULOSIN 0.4 MG CAP.ER.24H PO SCH (19:40)
[2021-05-09] MEDS: MELATONIN 5 MG TABLET PO SCH (19:40)
[2021-05-09] MEDS: tiZANidine 4 MG TAB PO SCH (19:42)
[2021-05-09 20:46] LABS: Glucose,Whole Blood 109 mg/dL (75-99)
[2021-05-09] MEDS: ONDANSETRON 4 MG/2 ML VIAL IVP PRN (22:33)
--- NOTE | 2021-05-09 23:14 | PN ---
PROGRESS NOTE DATE OF SERVICE: 05/09/2021 REASON FOR FOLLOWUP: Left gluteal abscess. INTERVAL HISTORY: The patient is afebrile. The patient is breathing comfortably. The patient's abdominal pain has decreased in intensity. Some nausea, no vomiting. No abdominal pain. No chest pain, shortness of breath or cough. Overall pain and discomfort to the left gluteal area has decreased. PHYSICAL EXAMINATION: Blood pressure 132/75, pulse of 72, temperature 96.8. He is 91% on 4 L nasal cannula. General description is a middle-aged male lying in bed in no distress. Respiratory system: Unlabored breathing, clear to auscultation anteriorly. Heart S1, S2. Regular rate and rhythm. Abdomen soft, no tenderness. Extremities: No edema of the feet. LABS: Creatinine 0.90. Blood culture has been negative so far. DIAGNOSTIC IMPRESSION AND PLAN: Patient with left gluteal abscess starting with possible streptococcal disease. Surgery has seen the patient and advised to increase surgical drainage. May need to obtain cultures to guide further antibiotic therapy. Continue with Unasyn and vancomycin at this point. MMODL / IJN: [id number] /
[2021-05-10] MEDS: BUTALB/APAP/CAFF 50-325-40MG TAB PO PRN ×2 (01:10→08:02)
[2021-05-10] MEDS: AMPICILLIN-SULBACTAM 3 GM in SODIUM CHLORIDE 0.9% 100 ML IVPB SCH ×4 (01:10→20:26)
[2021-05-10] MEDS: HYDROmorphone 0.5 MG/0.5 ML SYRINGE IVP PRN ×6 (02:52→21:18)
[2021-05-10] MEDS: diazePAM 2 MG TAB PO SCH ×3 (04:32→18:00)
[2021-05-10] MEDS: HYDROcodone/APAP 10-325MG 1 EACH TAB PO SCH ×3 (04:32→20:25)
[2021-05-10] MEDS: MAG HYDROX/AL HYDROX/SIMETH 30 ML CUP PO PRN ×2 (05:25→20:30)
[2021-05-10] MEDS: FUROSEMIDE 20 MG TAB PO SCH (05:25)
[2021-05-10] MEDS: PANTOPRAZOLE 40 MG TABLET PO SCH (05:25)
[2021-05-10] MEDS: TRIHEXYPHENIDYL 2 MG TAB PO SCH ×3 (05:25→21:14)
[2021-05-10] MEDS: busPIRone HCl 10 MG TAB PO SCH ×3 (05:25→21:14)
[2021-05-10] MEDS: SODIUM CHLORIDE 0.9% 1,000 ML IV SCH ×2 (05:28→20:32)
[2021-05-10 06:54] LABS: African American GFR (CKD) >90 (>60 ml/min/1.73 sqM); Non-African American GFR(CKD) >90 (>60 ml/min/1.73 sqM)
[2021-05-10 06:59] LABS: Glucose,Whole Blood 103 mg/dL (75-99)
[2021-05-10] MEDS: INSULIN ASPART (NovoLOG) 100 UNIT/ML VIAL SQ SCH ×4 (07:31→21:06)
[2021-05-10] MEDS: ASPIRIN 81 MG PO SCH (07:56)
[2021-05-10] MEDS: APIXABAN 5 MG TAB PO SCH ×2 (07:56→21:14)
[2021-05-10] MEDS: MONTELUKAST 10 MG TAB PO SCH (07:56)
[2021-05-10] MEDS: PSYLLIUM HUSK 100% 6 GM PACKET PO SCH (07:56)
[2021-05-10] MEDS: metFORMIN 500 MG TAB PO SCH ×2 (07:56→17:59)
[2021-05-10] MEDS: TOPIRAMATE 25 MG TAB PO SCH ×2 (07:56→18:12)
[2021-05-10] MEDS: SENNOSIDES-DOCUSATE SODIUM 1 EACH TAB PO SCH (07:56)
[2021-05-10] MEDS: HYDROCORTISONE 2.5% RECTAL CREAM 30 GM TUBE RECTAL SCH ×2 (07:57→21:16)
[2021-05-10] MEDS: acetaZOLAMIDE 250 MG TAB PO SCH (07:58)
[2021-05-10] MEDS: POTASSIUM CHLORIDE ER 20 MEQ TAB.ER PO SCH (08:02)
[2021-05-10] MEDS: IPRATROPIUM 0.5 MG/2.5 ML NEBU INHALATION SCH ×4 (08:35→21:07)
[2021-05-10] MEDS: SYMBICORT 80-4.5 MCG INHALER INHALATION SCH ×2 (08:35→21:07)
[2021-05-10] MEDS: VANCOMYCIN 1,250 MG in SODIUM CHLORIDE 0.9% 250 ML IVPB SCH ×2 (10:03→18:00)
--- NOTE | 2021-05-10 10:45 | P.PN ---
Subjective Progress Note Date: 05/10/21 CHIEF COMPLAINT: Left buttocks abscess HISTORY OF PRESENT ILLNESS: Surgical service is following regards to patient's left buttocks abscess and stomach volvulus. Patient is still having drainage from the left buttocks abscess. He has pain with sitting. He reports that it feels slightly smaller today. Denies any abdominal pain. Denies any nausea or vomiting. He is tolerating diet. He is complaining of urinary retention. He was straight cathed 2 yesterday. Afebrile. PHYSICAL EXAM: VITAL SIGNS: Reviewed. GENERAL: Well-developed in no acute distress. HEENT: No sclera icterus. Extraocular movements grossly intact. Moist buccal mucosa. Head is atraumatic, normocephalic. ABDOMEN: Soft. Nondistended. Nontender. NEUROLOGIC: Alert and oriented. Cranial nerves II through XII grossly intact. Skin exam: Left buttocks abscess that goes into the perineum area. It is draining purulent fluid. Area of induration decreasing in size. Tender with palpation ASSESSMENT: 1. Stomach volvulus 2. Left buttocks abscess actively draining PLAN: -Recommend endoscopy regarding stomach volvulus when medically stable -No surgical intervention planned for left buttock abscess -Continue supportive care -Apply heat packs to left buttocks abscess -Continue antibiotics per ID Physician Softwood Faller note has been reviewed by physician. Signing provider agrees with the documented findings, assessment, and plan of care. Objective - Vital Signs Vital signs: Vital Signs Temp 98.2 F 05/10/21 08:00 Pulse 86 05/10/21 08:00 Resp 21 05/10/21 08:00 BP 140/88 05/10/21 08:00 Pulse Ox 84 L 05/10/21 08:01 Intake & Output 05/09/21 05/10/21 05/10/21 18:59 06:59 18:59 Output Total 800 900 450 Balance -800 -900 -450 Weight 72.575 kg Output: Urine 800 900 450 Straight 500 150 Other: Voiding Method Urinal Urinal Urinal Diaper Diaper Diaper # Voids 1 - Labs CBC & Chem 7: 05/08/21 10:56 05/10/21 06:07 Labs: Abnormal Lab Results - Last 24 Hours (Table) 05/09/21 05/09/21 05/10/21 Range/Units 16:11 20:43 06:07 Creatinine 0.65 L (0.66-1.25) mg/dL POC Glucose (mg/dL) 123 H 109 H (75-99) mg/dL 05/10/21 Range/Units 06:57 Creatinine (0.66-1.25) mg/dL POC Glucose (mg/dL) 103 H (75-99) mg/dL Microbiology - Last 24 Hours (Table) 05/08/21 14:55 Blood Culture - Preliminary Blood No Growth after 24 hours
[2021-05-10 11:14] LABS: Glucose,Whole Blood 97 mg/dL (75-99)
[2021-05-10] MEDS: FINASTERIDE 5 MG TAB PO SCH (11:37)
--- NOTE | 2021-05-10 11:52 | P.CONS ---
History of Present Illness - Reason for Consult Consult date: 05/10/21 wound care - History of Present Illness This is a 60-year-old resident of [facility] who is being seen by the wound care center on observation for a nonhealing ulceration to the left buttocks. Patient had a abscess that is now open with purulent drainage to the left buttocks. The ulceration measures approximately 2 x 4 x 2 cm. There is purulent drainage to the site. Patient states that the ulceration has been there for approximately one week. Patient's past medical history is significant for atrial fibrillation COPD hyperlipidemia, BPH, COPD he is O2 dependent. There was no surgical intervention to the site. Review Of Systems: Constitutional: No fever, no chills, no night sweats. No weight change. No weakness, fatigue or lethargy. No daytime sleepiness. Integumentary:reports wounds, no lesions. No rash or pruritus. No unusual bruising. No change in hair or nails. Physical exam: General Appearance: Alert, cooperative, no distress, appears stated age. Skin: See HPI all other Skin color, texture, tugor normal, no rashes or lesions. Neurologic: Alert oriented x3 Assessment: 1. Nonhealing ulceration left buttocks with fat layer exposure 2. Cellulitis 3. Abscess Plan: 1. Apply absorptive silver rope, saline moist gauze, dry gauze and AVD secure with tape as needed. Change Friday. Thank you for the consultation any questions please contact the wound care center DNP note has been reviewed and discussed with Dr. Astorga and the impression and plan of care has been directed as dictated. Past Medical History Past Medical History: Atrial Fibrillation, COPD, Hyperlipidemia, Pneumonia, Prostate Disorder Additional Past Medical History / Comment(s): Chronic respiratory failure, steroid and oxygen dependent, ARDS, hypoxemia, chronic SOB, bilateral leg edema, chronic low back pain with sciatica R buttock, chronic cervical pain, numbness/tingling L arm d/t herniated cervical discs, R rotator cuff pain /dysfunction, muscle weakness/leg weakness, R eye blurred vision d/t corneal injury and L eye has start of cataract with limited vision, current abscess R buttock. History of Any Multi-Drug Resistant Organisms: None Reported Past Surgical History: Back Surgery Additional Past Surgical History / Comment(s): tracheostomy & removal Past Anesthesia/Blood Transfusion Reactions: No Reported Reaction Past Psychological History: Anxiety Additional Psychological History / Comment(s): Lives in [facility]. Pt is oxygen dependent. He states lately he gets around by wheelchair. Smoking Status: Former smoker Past Alcohol Use History: None Reported Additional Past Alcohol Use History / Comment(s): Pt started smoking in 1971 and quit in December 2017. He states he drank as a younger person but none in years. Past Drug Use History: None Reported Additional Drug Use History / Comment(s): Pt states he has tried medical marijuana for pain control but no longer takes it. - Past Family History Mother Family Medical History: COPD Father Family Medical History: Myocardial Infarction ([place]) Additional Family Medical History / Comment(s): Father of a [place] at the age of 75yrs. Medications and Allergies Home Medications Medication Instructions Recorded Confirmed Type Acetaminophen Tab [Tylenol] 650 mg PO Q4H PRN 08/19/18 05/08/21 History Atorvastatin [Lipitor] 20 mg PO HS@219908/19/18 05/08/21 History Mylanta Double Strength 10 ml PO Q4H PRN 08/19/18 05/08/21 History Pantoprazole [Protonix] 40 mg PO DAILY@0600 08/19/18 05/08/21 History Tamsulosin [Flomax] 0.4 mg PO HS@219908/19/18 05/08/21 History Ipratropium-Albuterol Nebulize 3 ml INHALATION RT-Q4H PRN #1 01/13/19 05/08/21 Rx [Duoneb 0.5 mg-3 mg/3 ml Soln] Albuterol Sulfate [Ventolin HFA] 2 puff INHALATION RT-Q6H PRN 05/08/21 05/08/21 History Apixaban [Eliquis] 5 mg PO BID@0900,2100 05/08/21 05/08/21 History Aspirin EC [Ecotrin Low Dose] 81 mg PO DAILY@0900 05/08/21 05/08/21 History Calc/Mag/Zinc 2 tab PO DAILY@0900 05/08/21 05/08/21 History Fluticasone/Umeclidin/Vilanter 1 puff INHALATION RT-DAILY@0900 05/08/21 05/08/21 History [Trelegy Ellipta 100-62.5-25] Furosemide [Lasix] 20 mg PO DAILY@0600 05/08/21 05/08/21 History HYDROcodone/APAP 10-325MG [[place] 1 tab PO TID@0500,1300,2100 05/08/21 05/08/21 History 10-325] Hydrocortisone Pr Cream 1 applic RECTAL BID 05/08/21 05/08/21 History [Proctosol-Hc 2.5%] Lactose-Reduced Food [Ensure Plus] 1 can PO BID@0900,1300 05/08/21 05/08/21 History Lidocaine 2% Ling 5 ml IM DAILY PRN 05/08/21 05/08/21 History Melatonin 15 mg PO HS@2200 05/08/21 05/08/21 History Montelukast [Singulair] 10 mg PO DAILY@0900 05/08/21 05/08/21 History Nitroglycerin Sl Tabs [Nitrostat] 0.4 mg SUBLINGUAL Q5M PRN 05/08/21 05/08/21 History Phenyleph/Mineral Oil/Petrolat 1 applic RECTAL Q12H PRN 05/08/21 05/08/21 History [Preparation H Ointment] Potassium Chloride [Klor-Con 10 ER] 20 meq PO DAILY@0900 05/08/21 05/08/21 History Psyllium Husk 100% [Metamucil 6 gm PO DAILY@0900 05/08/21 05/08/21 History Packet] Sennosides/Docusate Sodium [Senna 2 cap PO DAILY@0900 05/08/21 05/08/21 History Plus 8.6-50 mg Softgel] Sulfamethox-Tmp 800-160Mg [Bactrim 1 tab PO BID@0900,2100 05/08/21 05/08/21 History DS 800-160 mg] Topiramate [Topamax] 50 mg PO BID@0900,1700 05/08/21 05/08/21 History Trihexyphenidyl [Artane] 2 mg PO TID@0600,1400,2200 05/08/21 05/08/21 History acetaZOLAMIDE [Diamox] 250 mg PO DAILY@0900 05/08/21 05/08/21 History busPIRone HCl [Buspar] 10 mg PO TID@0600,1400,2200 05/08/21 05/08/21 History diazePAM [Valium] 2 mg PO TID@0500,1100,1700 05/08/21 05/08/21 History metFORMIN HCL [Glucophage XR] 750 mg PO DAILY@1500 05/08/21 05/08/21 History tiZANidine HCL [Zanaflex] 4 mg PO HS 05/08/21 05/08/21 History tiZANidine [Zanaflex] 2 mg PO Q6H PRN 05/08/21 05/08/21 History Allergies Allergy/AdvReac Type Severity Reaction Status Date / Time tiotropium Allergy Unknown Verified 05/08/21 14:15 [From Spiriva with HandiHaler] Physical Exam Vitals: Vital Signs Temp Pulse Resp BP Pulse Ox 05/10/21 08:01 84 L 05/10/21 08:00 98.2 F 86 21 140/88 90 L 05/10/21 02:00 98.2 F 70 140/76 90 L 05/09/21 20:00 96.8 F L 72 132/75 91 L 05/09/21 14:00 98.2 F 79 22 149/72 98 Intake and Output 05/09/21 05/10/21 05/10/21 22:59 06:59 14:59 Output Total 300 600 450 Balance -300 -600 -450 Output: Urine 300 600 450 Straight 150 Other: Voiding Method Urinal Urinal Diaper Diaper # Voids 1 Weight 72.575 kg Results CBC & Chem 7: 05/08/21 10:56 05/10/21 06:07 Labs: Abnormal Lab Results - Last 24 Hours (Table) 05/09/21 05/09/21 05/10/21 Range/Units 16:11 20:43 06:07 Creatinine 0.65 L (0.66-1.25) mg/dL POC Glucose (mg/dL) 123 H 109 H (75-99) mg/dL 05/10/21 Range/Units 06:57 Creatinine (0.66-1.25) mg/dL POC Glucose (mg/dL) 103 H (75-99) mg/dL Microbiology - Last 24 Hours (Table) 05/08/21 14:55 Blood Culture - Preliminary Blood No Growth after 24 hours Assessment and Plan (1) Non-pressure chronic ulcer of buttock with fat layer exposed Current Visit: Yes Status: Acute Code(s): L98.412 - NON-PRESSURE CHRONIC ULCER OF BUTTOCK WITH FAT LAYER EXPOSED SNOMED Code(s): 344844477 (2) Cellulitis and abscess of buttock Current Visit: No Status: Acute Code(s): L02.31 - CUTANEOUS ABSCESS OF BUTTOCK; L03.317 - CELLULITIS OF BUTTOCK SNOMED Code(s): 127586531
--- NOTE | 2021-05-10 13:19 | P.PN ---
Subjective Progress Note Date: 05/10/21 HISTORY OF PRESENT ILLNESS This is a 60-year-old male patient of Dr. Maradiaga, long-term resident at [facility], with past medical history of end-stage COPD, stage IV, chronic hypoxic re spiratory failure, Covid 19 infection December 2020, hyperlipidemia, chronic atrial fibrillation on long-term anticoagulation, gastroesophageal reflux disease, Parkinson's disease, diabetes mellitus type 2, generalized anxiety disorder, migraine headaches, benign prostatic hypertrophy. Patient has received treatment for cellulitis to the left gluteal area for which she was treated with Bactrim became swollen with increasing pain. Patient complains of a throbbing pain as well as migraine headache. No fever or chills. He has chronic shortness of breath but no worsening. Patient was brought into [facility] emergency center for evaluation. CAT scan with contrast revealed subcutaneous infection and/or cellulitis inferior medial left gluteal region without well formed fluid collection or abscess. There is organoaxial volvulus in gas distended stomach. WBC 8.3, hemoglobin 11.9, platelet count 315. Electrolytes and renal function normal. Blood sugar 120. Liver function tests are normal. Coronavirus PCR not detected. Patient admitted to the [facility] floor waiting in the observation unit and consult in place with general surgery and infectious disease. Patient has been seen by Dr. Hunter and on Unasyn and vancomycin. At this time, patient refuses to allow evaluation of his buttocks. 05/10: Patient required straight cath 2 yesterday and on next bladders can most likely Walton catheter will be required. Zanaflex discontinued and Flomax increased twice daily. Patient has been seen by general surgery with no plan for surgical intervention at this time. Wound Center has added wound care in the form of absorptive silver rope, saline moist gauze, dry gauze and AVD secure with tape as needed. Change Friday. Patient has been afebrile, heart rate 86, blood pressure 140/88, pulse ox 90% on 4 L nasal cannula. Creatinine 0.65. Blood sugars are running between 97 and 123. Blood cultures no growth at 24 hours. Social work is following for return to [facility]. REVIEW OF SYSTEMS Constitutional: No fever, no chills, no night sweats. No weight change. Chronic weakness, chronic fatigue no lethargy. No daytime sleepiness. EENT: Reports headache. No blurred vision or double vision, no loss of vision. No loss of Hearing, no ringing in the ears, no dizziness. No nasal drainage or congestion. No epistaxis. No sore throat. Lungs: Chronic shortness of breath, cough, no sputum production. No wheezing. Chronic dyspnea with minimal exertion. Cardiovascular: No chest pain, no lower extremity edema. No palpitations. No paroxysmal nocturnal dyspnea. No orthopnea. No lightheadedness or dizziness. No syncopal episodes. Abdominal: No abdominal pain. No nausea, vomiting. No diarrhea. No constipation. No bloody or tarry stools.. No loss of appetite. Genitourinary: No dysuria, increased frequency, urgency. Reports urinary retention. Musculoskeletal: No myalgias. Chronic muscle weakness, chronic gait dysfunction, no frequent falls. No back pain. No neck pain. Integumentary: Reported wounds, no lesions. No rash or pruritus. No unusual bruising. No change in hair or nails. Neurologic: No aphasia. No facial droop. No change in mentation. No head injury. No headache. No paralysis. No paresthesia. Psychiatric: No depression. No anxiety. No mood swings. Endocrine: No abnormal blood sugars. PHYSICAL EXAMINATION Gen: This is a 60-year-old male patient, resting in bed and appears to be fairly comfortable. HEENT: Head is atraumatic, normocephalic. Pupils equal, round. Sclerae is anicteric. NECK: Supple. No JVD. No lymphadenopathy. No thyromegaly. LUNGS: Diminished bilaterally. Bilateral rhonchi. No intercostal retractions. HEART: Regular rate and rhythm. No murmur. ABDOMEN: Soft. Bowel sounds are present. No masses. No tenderness. EXTREMITIES: No pedal edema. No calf tenderness. BUTTOCKS: Patient refuses examination of his buttocks. Nursing to obtain photos once he moves to [facility]. NEUROLOGICAL: Patient is awake, alert and oriented x3. Cranial nerves 2 through 12 are grossly intact. ASSESSMENT AND PLAN 1. Left gluteal abscess and cellulitis. Consult with infectious disease appreciated, continue Unasyn 3 g IV piggyback every 6 hours, vancomycin, pharmacy dosing, Wound Center consult with recommendations for absorptive silver rope, saline moist gauze, dry gauze and AVD secure with tape as needed. Change Friday. 2. Organoaxial volvulus in gas distended stomach. Consult with Dr. York. Patient is currently on a regular diet. 3. End-stage COPD. Continue DuoNeb treatments every 4 hours as needed, albuterol as needed, Symbicort 2 puffs twice daily. 4. Chronic hypoxic respiratory failure on home O2. Continue oxygen therapy. 5. Hyperlipidemia. Continue atorvastatin 20 mg at bedtime. 6. Chronic atrial fibrillation. Continue eliquis 5 mg twice daily if okay with general surgery. 7. Migraine headache. Continue Fioricet 1 every 4 hours as needed, Topamax 50 mg twice daily. 8. Parkinson's disease. Valium 2 mg 3 times daily, [place] 10 1 scheduled 3 times daily at 5 AM, 1 PM and 9 PM, Zanaflex 4 mg at bedtime and 2 mg every 6 hours as needed. 9. Benign prostatic hypertrophy. Continue Flomax 0.4 mg at bedtime. 10. Gastroesophageal reflux disease and GI prophylaxis. Continue Protonix 40 mg daily. 11. Diabetes mellitus type 2. Continue metformin 500 mg twice daily, on hold due to contrast, NovoLog scale before meals and at bedtime. 12. Hypertension. Continue Diamox 250 mg daily, Lasix 20 mg daily. 13. DVT prophylaxis. Eliquis if okay with general surgery. 14. COVID-19 testing negative. Patient has been hospitalized during a i c. DISCHARGE PLAN Return to [facility] under the care of Dr. Maradiaga. Impression and plan of care have been directed as dictated by the signing physician. Aggie Oliva nurse practitioner acting as scribe for signing physician. Objective - Vital Signs Vital signs: Vital Signs Temp 98.2 F 05/10/21 08:00 Pulse 86 05/10/21 08:00 Resp 21 05/10/21 08:00 BP 140/88 05/10/21 08:00 Pulse Ox 84 L 05/10/21 08:01 Intake & Output 05/09/21 05/10/21 05/10/21 18:59 06:59 18:59 Output Total 800 900 450 Balance -800 -900 -450 Weight 72.575 kg Output: Urine 800 900 450 Straight 500 150 Other: Voiding Method Urinal Urinal Urinal Diaper Diaper Diaper # Voids 1 - Labs CBC & Chem 7: 05/08/21 10:56 05/10/21 06:07 Labs: Abnormal Lab Results - Last 24 Hours (Table) 05/09/21 05/09/21 05/10/21 Range/Units 16:11 20:43 06:07 Creatinine 0.65 L (0.66-1.25) mg/dL POC Glucose (mg/dL) 123 H 109 H (75-99) mg/dL 05/10/21 Range/Units 06:57 Creatinine (0.66-1.25) mg/dL POC Glucose (mg/dL) 103 H (75-99) mg/dL Microbiology - Last 24 Hours (Table) 05/08/21 14:55 Blood Culture - Preliminary Blood No Growth after 24 hours
[2021-05-10] MEDS ORDERED: VANCOMYCIN TROUGH DUE 1 EACH MISC MISCELLANE ONE (17:00)
[2021-05-10] MEDS: ONDANSETRON 4 MG/2 ML VIAL IVP PRN (17:49)
[2021-05-10 18:00] LABS: Glucose,Whole Blood 78 mg/dL (75-99)
[2021-05-10 20:12] LABS: Glucose,Whole Blood 86 mg/dL (75-99)
[2021-05-10] MEDS: TAMSULOSIN 0.4 MG CAP.ER.24H PO SCH (21:14)
[2021-05-10] MEDS: MELATONIN 5 MG TABLET PO SCH (21:14)
[2021-05-10] MEDS: ATORVASTATIN 20 MG TAB PO SCH (21:14)
[2021-05-11] MEDS: HYDROmorphone 0.5 MG/0.5 ML SYRINGE IVP PRN ×8 (00:21→23:55)
[2021-05-11] MEDS: AMPICILLIN-SULBACTAM 3 GM in SODIUM CHLORIDE 0.9% 100 ML IVPB SCH ×3 (03:26→15:03)
[2021-05-11] MEDS: ONDANSETRON 4 MG/2 ML VIAL IVP PRN ×2 (03:28→21:44)
[2021-05-11] MEDS: SODIUM CHLORIDE 0.9% 1,000 ML IV SCH ×2 (03:28→19:28)
[2021-05-11] MEDS: PANTOPRAZOLE 40 MG TABLET PO SCH (05:23)
[2021-05-11] MEDS: busPIRone HCl 10 MG TAB PO SCH ×3 (05:23→21:37)
[2021-05-11] MEDS: TRIHEXYPHENIDYL 2 MG TAB PO SCH ×3 (05:23→21:38)
[2021-05-11] MEDS: HYDROcodone/APAP 10-325MG 1 EACH TAB PO SCH ×3 (05:24→21:37)
[2021-05-11] MEDS: diazePAM 2 MG TAB PO SCH ×3 (05:24→17:04)
[2021-05-11] MEDS: FUROSEMIDE 20 MG TAB PO SCH (05:24)
[2021-05-11] MEDS: VANCOMYCIN 1,250 MG in SODIUM CHLORIDE 0.9% 250 ML IVPB SCH ×2 (05:42→18:24)
[2021-05-11 06:33] LABS: African American GFR (CKD) >90 (>60 ml/min/1.73 sqM); Non-African American GFR(CKD) >90 (>60 ml/min/1.73 sqM)
--- NOTE | 2021-05-11 06:51 | PN ---
PROGRESS NOTE DATE OF SERVICE: 05/10/2021 REASON FOR FOLLOWUP: Left gluteal abscess and cellulitis. INTERVAL HISTORY: Patient is afebrile, has been breathing slightly comfortably. Denies having any chest pain, shortness of breath. Occasional cough. No abdominal pain or pain to the left gluteal area. PHYSICAL EXAMINATION: Blood pressure 148/56, pulse of 80, temperature of 98.4. General description is a middle-aged male lying in bed in no distress. Respiratory system: Unlabored breathing, decreased intensity of breath sounds. No wheeze. Heart S1, S2. Regular rate and rhythm. Abdomen soft, no tenderness. Left gluteal wound is currently covered. LABS: Cultures currently pending. DIAGNOSTIC IMPRESSION AND PLAN: Patient with left gluteal abscess drainage of the abscess. Blood culture has been negative. Local cultures need to be obtained. Continue with Unasyn and vancomycin adjusting antibiotic further based on culture report. Continue supportive care. MMODL / IJN: [id number] /
[2021-05-11 07:09] LABS: Glucose,Whole Blood 89 mg/dL (75-99)
[2021-05-11] MEDS: INSULIN ASPART (NovoLOG) 100 UNIT/ML VIAL SQ SCH ×4 (07:37→21:38)
[2021-05-11] MEDS: SYMBICORT 80-4.5 MCG INHALER INHALATION SCH ×2 (07:57→19:41)
[2021-05-11] MEDS: IPRATROPIUM 0.5 MG/2.5 ML NEBU INHALATION SCH ×4 (07:57→19:41)
[2021-05-11] MEDS: TAMSULOSIN 0.4 MG CAP.ER.24H PO SCH ×2 (08:23→20:30)
[2021-05-11] MEDS: PSYLLIUM HUSK 100% 6 GM PACKET PO SCH (08:23)
[2021-05-11] MEDS: ASPIRIN 81 MG PO SCH (08:23)
[2021-05-11] MEDS: acetaZOLAMIDE 250 MG TAB PO SCH (08:23)
[2021-05-11] MEDS: APIXABAN 5 MG TAB PO SCH ×2 (08:24→20:30)
[2021-05-11] MEDS: MONTELUKAST 10 MG TAB PO SCH (08:24)
[2021-05-11] MEDS: FINASTERIDE 5 MG TAB PO SCH (08:24)
[2021-05-11] MEDS: POTASSIUM CHLORIDE ER 20 MEQ TAB.ER PO SCH (08:24)
[2021-05-11] MEDS: metFORMIN 500 MG TAB PO SCH ×2 (08:24→17:51)
[2021-05-11] MEDS: SENNOSIDES-DOCUSATE SODIUM 1 EACH TAB PO SCH (08:25)
[2021-05-11] MEDS: HYDROCORTISONE 2.5% RECTAL CREAM 30 GM TUBE RECTAL SCH ×2 (08:25→20:31)
[2021-05-11] MEDS: TOPIRAMATE 25 MG TAB PO SCH ×2 (09:25→17:52)
[2021-05-11 11:08] LABS: HCT 36.9 % (39.0-53.0); HGB 10.8 gm/dL (13.0-17.5); Hypochromasia Marked; MCH 29.6 pg (25.0-35.0); MCHC 29.2 g/dL (31.0-37.0); Mean Platelet Volume 8.5; Platelet Count 300 k/uL (150-450); RBC 3.64 m/uL (4.30-5.90); RDW 12.8 % (11.5-15.5); WBC 7.8 k/uL (3.8-10.6)
--- NOTE | 2021-05-11 11:12 | P.PN ---
Progress Note - Text Progress Note Date: 05/11/21 Patient remains stable. He denies any abdominal pain. His left buttock abscess is still draining some small amount of purulent fluid Patient shows no signs of gastric obstruction.. His left buttock abscess is draining and healing slowly. He'll Receive IV antibiotics.
[2021-05-11 11:15] LABS: ALT 6 U/L (4-49); AST 16 U/L (17-59); Albumin/Globulin Ratio 1.2; Alkaline Phosphatase 72 U/L (38-126); Anion Gap 12 mmol/L; Blood Urea Nitrogen 4 mg/dL (9-20); Calcium 8.6 mg/dL (8.4-10.2); Carbon Dioxide 27 mmol/L (22-30); Chloride 104 mmol/L (98-107); Globulin 2.6 g/dL; Glucose 90 mg/dL (74-99); Sodium 143 mmol/L (137-145); Total Bilirubin 0.3 mg/dL (0.2-1.3); Total Protein 5.6 g/dL (6.3-8.2)
[2021-05-11 11:20] LABS: MCV 101.3 fL (80.0-100.0)
[2021-05-11 11:45] LABS: Glucose,Whole Blood 155 mg/dL (75-99)
[2021-05-11] MEDS: methylPREDNISolone SOD SUCCI 125 MG/2 ML VIAL IV SCH ×3 (12:08→23:56)
--- NOTE | 2021-05-11 14:59 | P.PN ---
Subjective Progress Note Date: 05/11/21 HISTORY OF PRESENT ILLNESS This is a 60-year-old male patient of Dr. Maradiaga, long-term resident at [facility], with past medical history of end-stage COPD, stage IV, chronic hypoxic re spiratory failure, Covid 19 infection December 2020, hyperlipidemia, chronic atrial fibrillation on long-term anticoagulation, gastroesophageal reflux disease, Parkinson's disease, diabetes mellitus type 2, generalized anxiety disorder, migraine headaches, benign prostatic hypertrophy. Patient has received treatment for cellulitis to the left gluteal area for which she was treated with Bactrim became swollen with increasing pain. Patient complains of a throbbing pain as well as migraine headache. No fever or chills. He has chronic shortness of breath but no worsening. Patient was brought into [facility] emergency center for evaluation. CAT scan with contrast revealed subcutaneous infection and/or cellulitis inferior medial left gluteal region without well formed fluid collection or abscess. There is organoaxial volvulus in gas distended stomach. WBC 8.3, hemoglobin 11.9, platelet count 315. Electrolytes and renal function normal. Blood sugar 120. Liver function tests are normal. Coronavirus PCR not detected. Patient admitted to the [facility] floor waiting in the observation unit and consult in place with general surgery and infectious disease. Patient has been seen by Dr. Hunter and on Unasyn and vancomycin. At this time, patient refuses to allow evaluation of his buttocks. 05/10: Patient required straight cath 2 yesterday and on next bladders can most likely Walton catheter will be required. Zanaflex discontinued and Flomax increased twice daily. Patient has been seen by general surgery with no plan for surgical intervention at this time. Wound Center has added wound care in the form of absorptive silver rope, saline moist gauze, dry gauze and AVD secure with tape as needed. Change Friday. Patient has been afebrile, heart rate 86, blood pressure 140/88, pulse ox 90% on 4 L nasal cannula. Creatinine 0.65. Blood sugars are running between 97 and 123. Blood cultures no growth at 24 hours. Social work is following for return to [facility]. 05/11: Patient is afebrile, heart rate 70, blood pressure 130/74, pulse ox 98% on nonrebreather she was started yesterday. This apparently was done because patient is refusing to take nebulizer and is having increased wheezing. He states the medications we have for the nebulizers causes him to have migraines. Patient is normally on O2 at 3 L. He does have CPAP and this will be started. Patient will be switched back to nasal cannula with aim of pulse ox no higher than 90%. Wound culture has been obtained today. Repeat blood work reveals WBC 7.8, hemoglobin 10.8, platelet count 200. Electrodes are normal. Creatinine 0.64. Blood sugars have been running in the 70s and 80s. Blood culture showing no growth at [address] Hunter is continuing Unasyn and vancomycin with recommendations for drainage of the abscess. Anticipate discharge back to [facility] early next week REVIEW OF SYSTEMS Constitutional: No fever, no chills, no night sweats. No weight change. Chronic weakness, chronic fatigue no lethargy. No daytime sleepiness. EENT: Reports headache. No blurred vision or double vision, no loss of vision. No loss of Hearing, no ringing in the ears, no dizziness. No nasal drainage or congestion. No epistaxis. No sore throat. Lungs: Chronic shortness of breath, cough, no sputum production. No wheezing. Chronic dyspnea with minimal exertion. Cardiovascular: No chest pain, no lower extremity edema. No palpitations. No paroxysmal nocturnal dyspnea. No orthopnea. No lightheadedness or dizziness. No syncopal episodes. Abdominal: No abdominal pain. No nausea, vomiting. No diarrhea. No constip ation. No bloody or tarry stools.. No loss of appetite. Genitourinary: No dysuria, increased frequency, urgency. Reports urinary retention. Musculoskeletal: No myalgias. Chronic muscle weakness, chronic gait dysfunction, no frequent falls. No back pain. No neck pain. Integumentary: Reported wounds, no lesions. No rash or pruritus. Neurologic: No aphasia. No facial droop. No change in mentation. No head injury. No headache. No paralysis. No paresthesia. Psychiatric: No depression. No anxiety. No mood swings. Endocrine: No abnormal blood sugars. PHYSICAL EXAMINATION Gen: This is a 60-year-old male patient, resting in bed and appears to be comfortable. HEENT: Head is atraumatic, normocephalic. Pupils equal, round. Sclerae is anicteric. NECK: Supple. No JVD. No lymphadenopathy. No thyromegaly. LUNGS: Bilateral expiratory wheeze and rhonchi. No intercostal retractions. HEART: Regular rate and rhythm. No murmur. ABDOMEN: Soft. Bowel sounds are present. No masses. No tenderness. Walton catheter draining clear annette urine. EXTREMITIES: No pedal edema. No calf tenderness. BUTTOCKS: Patient refuses examination of his buttocks. Nursing to obtain photos once he moves to [facility] room. NEUROLOGICAL: Patient is awake, alert and oriented x3. Cranial nerves 2 through 12 are grossly intact. ASSESSMENT AND PLAN 1. Left gluteal abscess and cellulitis. Consult with infectious disease appreciated, continue Unasyn 3 g IV piggyback every 6 hours, vancomycin, pharmacy dosing, Wound Center consult with recommendations for absorptive silver rope, saline moist gauze, dry gauze and AVD secure with tape as needed. Change Friday. Wound culture was obtained on 05/11. 2. Organoaxial volvulus in gas distended stomach. Consult with Dr. York. Patient is currently on a regular diet. 3. End-stage COPD. Continue DuoNeb treatments every 4 hours as needed, albuterol as needed, Symbicort 2 puffs twice daily. Patient is refusing nebulizer treatments. 4. Chronic hypoxic respiratory failure on home O2. Continue oxygen therapy and resume nasal cannula with CPAP. Maintain pulse ox no higher than 90%.. 5. Hyperlipidemia. Continue atorvastatin 20 mg at bedtime. 6. Chronic atrial fibrillation. Continue eliquis 5 mg twice daily if okay with general surgery. 7. Migraine headache. Continue Fioricet 1 every 4 hours as needed, Topamax 50 mg twice daily. 8. Parkinson's disease. Valium 2 mg 3 times daily, [place] 10 1 scheduled 3 times daily at 5 AM, 1 PM and 9 PM, Zanaflex 4 mg at bedtime and 2 mg every 6 hours as needed. 9. Benign prostatic hypertrophy. Continue Flomax 0.4 mg at bedtime. 10. Gastroesophageal reflux disease and GI prophylaxis. Continue Protonix 40 mg daily. 11. Diabetes mellitus type 2. Resume metformin 750 mg twice daily, NovoLog scale before meals and at bedtime. 12. Hypertension. Continue Diamox 250 mg daily, Lasix 20 mg daily. 13. DVT prophylaxis. Eliquis if okay with general surgery. 14. COVID-19 testing negative. Patient has been hospitalized during a pandemic. DISCHARGE PLAN Return to [facility] under the care of Dr. Ashwini Colin next week. Impression and plan of care have been directed as dictated by the signing physician. Aggie Oliva nurse practitioner acting as scribe for signing physician. Objective - Vital Signs Vital signs: Vital Signs Temp 98 F 05/11/21 04:57 Pulse 70 05/11/21 04:57 Resp 20 05/11/21 04:57 BP 130/74 05/11/21 04:57 Pulse Ox 98 05/11/21 04:57 Intake & Output 05/10/21 05/11/21 05/11/21 18:59 06:59 18:59 Output Total 1500 1000 Balance -1500 -1000 Weight 72.575 kg Output: Urine 1250 1000 Uretheral ([place]ton) 550 Post Void Residual 250 Other: Voiding Method Urinal Indwelling Catheter Diaper - Labs CBC & Chem 7: 05/11/21 05:38 05/11/21 05:38 Labs: Abnormal Lab Results - Last 24 Hours (Table) 05/11/21 Range/Units 05:38 Creatinine 0.64 L (0.66-1.25) mg/dL Microbiology - Last 24 Hours (Table) 05/08/21 14:55 Blood Culture - Preliminary Blood No Growth after 48 hours
[2021-05-11 17:20] LABS: Glucose,Whole Blood 181 mg/dL (75-99)
--- NOTE | 2021-05-11 17:56 | PN ---
PROGRESS NOTE DATE OF SERVICE: 05/11/2021 REASON FOR FOLLOWUP: Left gluteal abscess and cellulitis. INTERVAL HISTORY: The patient is afebrile. The patient is breathing comfortably. Overall pain and discomfort to the left gluteal area have decreased. No chest pain, shortness of breath or cough. No abdominal pain or diarrhea. PHYSICAL EXAMINATION: Blood pressure is 125/71 with a pulse of 68, temperature 99. He is 98% on Ventimask. General description is a middle-aged male lying in bed in no distress. RESPIRATORY SYSTEM: Unlabored breathing. Decreased intensity of breath sounds. No wheeze. HEART: S1, S2. Regular rate and rhythm. ABDOMEN: Soft. No tenderness. LEFT GLUTEAL AREA: Overall induration has decreased. No drainage. LABS: Hemoglobin is , white count 7.8. BUN of 4, creatinine 0.64. DIAGNOSTIC IMPRESSION AND PLAN: Patient with a left gluteal abscess with spontaneous drainage and cellulitis. Patient is clinically responding to the Unasyn and vancomycin; to continue, adjusting it further based on the culture report. Continue with supportive care. MMODL / IJN: [id number] /
[2021-05-11] MEDS: BUTALB/APAP/CAFF 50-325-40MG TAB PO PRN (19:22)
[2021-05-11] MEDS: AMOXIC-POT CLAV 875-125MG 1 EACH TAB PO SCH (20:30)
[2021-05-11] MEDS: ATORVASTATIN 20 MG TAB PO SCH (20:30)
[2021-05-11 20:56] LABS: Glucose,Whole Blood 170 mg/dL (75-99)
[2021-05-11] MEDS: MELATONIN 5 MG TABLET PO SCH (21:37)
[2021-05-12] MEDS: HYDROcodone/APAP 10-325MG 1 EACH TAB PO SCH ×3 (05:16→21:06)
[2021-05-12] MEDS: diazePAM 2 MG TAB PO SCH ×3 (05:17→17:38)
[2021-05-12] MEDS: FUROSEMIDE 20 MG TAB PO SCH (05:55)
[2021-05-12] MEDS: TRIHEXYPHENIDYL 2 MG TAB PO SCH ×3 (05:55→21:07)
[2021-05-12] MEDS: PANTOPRAZOLE 40 MG TABLET PO SCH (05:55)
[2021-05-12] MEDS: busPIRone HCl 10 MG TAB PO SCH ×3 (05:55→21:07)
[2021-05-12] MEDS: VANCOMYCIN 1,250 MG in SODIUM CHLORIDE 0.9% 250 ML IVPB SCH (05:55)
[2021-05-12] MEDS: methylPREDNISolone SOD SUCCI 125 MG/2 ML VIAL IV SCH ×4 (05:57→23:16)
[2021-05-12] MEDS: HYDROmorphone 0.5 MG/0.5 ML SYRINGE IVP PRN ×4 (05:57→16:07)
[2021-05-12 07:24] LABS: Glucose,Whole Blood 138 mg/dL (75-99)
[2021-05-12 08:23] LABS: African American GFR (CKD) >90 (>60 ml/min/1.73 sqM); Anion Gap 3 mmol/L; Blood Urea Nitrogen 10 mg/dL (9-20); Calcium 8.4 mg/dL (8.4-10.2); Carbon Dioxide 35 mmol/L (22-30); Chloride 102 mmol/L (98-107); Glucose 145 mg/dL (74-99); Non-African American GFR(CKD) >90 (>60 ml/min/1.73 sqM); Sodium 140 mmol/L (137-145)
[2021-05-12] MEDS: MONTELUKAST 10 MG TAB PO SCH (09:00)
[2021-05-12] MEDS: SYMBICORT 80-4.5 MCG INHALER INHALATION SCH ×2 (09:40→21:01)
[2021-05-12] MEDS: IPRATROPIUM 0.5 MG/2.5 ML NEBU INHALATION SCH ×4 (09:40→21:01)
[2021-05-12] MEDS: INSULIN ASPART (NovoLOG) 100 UNIT/ML VIAL SQ SCH ×4 (09:42→21:07)
[2021-05-12] MEDS: metFORMIN 500 MG TAB PO SCH ×2 (09:43→18:18)
[2021-05-12] MEDS: TAMSULOSIN 0.4 MG CAP.ER.24H PO SCH ×2 (09:43→21:05)
[2021-05-12] MEDS: POTASSIUM CHLORIDE ER 20 MEQ TAB.ER PO SCH (09:43)
[2021-05-12] MEDS: FINASTERIDE 5 MG TAB PO SCH (09:57)
[2021-05-12] MEDS: ASPIRIN 81 MG PO SCH (09:57)
[2021-05-12] MEDS: APIXABAN 5 MG TAB PO SCH ×2 (09:57→21:05)
[2021-05-12] MEDS: AMOXIC-POT CLAV 875-125MG 1 EACH TAB PO SCH ×2 (09:57→21:05)
[2021-05-12] MEDS: SENNOSIDES-DOCUSATE SODIUM 1 EACH TAB PO SCH (09:58)
[2021-05-12] MEDS: TOPIRAMATE 25 MG TAB PO SCH ×2 (09:59→18:17)
[2021-05-12] MEDS: PSYLLIUM HUSK 100% 6 GM PACKET PO SCH (09:59)
[2021-05-12] MEDS: HYDROCORTISONE 2.5% RECTAL CREAM 30 GM TUBE RECTAL SCH ×2 (10:00→21:10)
[2021-05-12] MEDS: SODIUM CHLORIDE 0.9% 1,000 ML IV SCH (10:01)
--- NOTE | 2021-05-12 11:14 | P.PN ---
Subjective Progress Note Date: 05/12/21 Principal diagnosis: buttock abscess Patient doing well today. Says he has minimal pain left buttock at this time. Still with some drainage. No fevers. Objective - Vital Signs Vital signs: Vital Signs Temp 97.4 F L 05/12/21 04:40 Pulse 55 L 05/12/21 04:40 Resp 22 05/12/21 04:40 BP 107/72 05/12/21 04:40 Pulse Ox 99 05/12/21 04:40 Intake & Output 05/11/21 05/12/21 05/12/21 18:59 06:59 18:59 Intake Total 1910 475 Output Total 1150 1800 Balance 760 -1325 Intake: Intake, IV Titration 1100 375 Amount Ampicillin-Sulbactam 3 gm 200 In Sodium Chloride 0.9% 100 ml @ 200 mls/hr IVPB Q6H [facility] Rx#:[id number] Sodium Chloride 0.9% 1, 650 375 000 ml @ 75 mls/hr IV . [id number] [facility] Rx#:[id number] Vancomycin 1,250 mg In 250 Sodium Chloride 0.9% 250 ml @ 125 mls/hr IVPB Q12H [facility] Rx#:[id number] Oral 810 100 Output: Urine 1150 1800 Uretheral (Walton) 900 Other: Voiding Method Indwelling Catheter Indwelling Catheter - Exam Left buttock abscess induration and erythema improved - Labs CBC & Chem 7: 05/11/21 05:38 05/12/21 07:43 Labs: Abnormal Lab Results - Last 24 Hours (Table) 05/11/21 05/11/21 05/11/21 Range/Units 05:38 05:38 11:44 RBC 3.64 L (4.30-5.90) m/uL Hgb 10.8 L (13.0-17.5) gm/dL Hct 36.9 L (39.0-53.0) % MCV 101.3 H D (80.0-100.0) fL MCHC 29.2 L (31.0-37.0) g/dL Carbon Dioxide (22-30) mmol/L BUN 4 L (9-20) mg/dL Creatinine (0.66-1.25) mg/dL Glucose (74-99) mg/dL POC Glucose (mg/dL) 155 H (75-99) mg/dL AST 16 L (17-59) U/L Total Protein 5.6 L (6.3-8.2) g/dL Albumin 3.0 L (3.5-5.0) g/dL 05/11/21 05/11/21 05/12/21 Range/Units 17:18 20:53 07:18 RBC (4.30-5.90) m/uL Hgb (13.0-17.5) gm/dL Hct (39.0-53.0) % MCV (80.0-100.0) fL MCHC (31.0-37.0) g/dL Carbon Dioxide (22-30) mmol/L BUN (9-20) mg/dL Creatinine (0.66-1.25) mg/dL Glucose (74-99) mg/dL POC Glucose (mg/dL) 181 H 170 H 138 H (75-99) mg/dL AST (17-59) U/L Total Protein (6.3-8.2) g/dL Albumin (3.5-5.0) g/dL 05/12/21 Range/Units 07:43 RBC (4.30-5.90) m/uL Hgb (13.0-17.5) gm/dL Hct (39.0-53.0) % MCV (80.0-100.0) fL MCHC (31.0-37.0) g/dL Carbon Dioxide 35 H (22-30) mmol/L BUN (9-20) mg/dL Creatinine 0.57 L (0.66-1.25) mg/dL Glucose 145 H (74-99) mg/dL POC Glucose (mg/dL) (75-99) mg/dL AST (17-59) U/L Total Protein (6.3-8.2) g/dL Albumin (3.5-5.0) g/dL Microbiology - Last 24 Hours (Table) 05/11/21 11:00 Gram Stain - Preliminary Buttock Wound Culture - Preliminary 05/08/21 14:55 Blood Culture - Preliminary Blood No Growth after 72 hours 05/11/21 11:00 Anaerobic Culture - Preliminary Buttock Assessment and Plan (1) Cellulitis and abscess of buttock Narrative/Plan: Continue antibiotics for left buttock infection. Continue ambulation. Current Visit: No Status: Acute Code(s): L02.31 - CUTANEOUS ABSCESS OF BUTTOCK; L03.317 - CELLULITIS OF BUTTOCK SNOMED Code(s): 842893070
[2021-05-12] MEDS: acetaZOLAMIDE 250 MG TAB PO SCH (11:27)
[2021-05-12 11:51] LABS: Glucose,Whole Blood 180 mg/dL (75-99)
--- NOTE | 2021-05-12 12:27 | P.PN ---
Subjective Progress Note Date: 05/12/21 HISTORY OF PRESENT ILLNESS This is a 60-year-old male patient of Dr. Maradiaga, long-term resident at [facility], with past medical history of end-stage COPD, stage IV, chronic hypoxic resp iratory failure, Covid 19 infection December 2020, hyperlipidemia, chronic atrial fibrillation on long-term anticoagulation, gastroesophageal reflux disease, Parkinson's disease, diabetes mellitus type 2, generalized anxiety disorder, migraine headaches, benign prostatic hypertrophy. Patient has received treatment for cellulitis to the left gluteal area for which she was treated with Bactrim became swollen with increasing pain. Patient complains of a throbbing pain as well as migraine headache. No fever or chills. He has chronic shortness of breath but no worsening. Patient was brought into [facility] emergency center for evaluation. CAT scan with contrast revealed subcutaneous infection and/or cellulitis inferior medial left gluteal region without well formed fluid collection or abscess. There is organoaxial volvulus in gas distended stomach. WBC 8.3, hemoglobin 11.9, platelet count 315. Electrolytes and renal function normal. Blood sugar 120. Liver function tests are normal. Coronavirus PCR not detected. Patient admitted to the [facility] floor waiting in the observation unit and consult in place with general surgery and infectious disease. Patient has been seen by Dr. Hunter and on Unasyn and vancomycin. At this time, patient refuses to allow evaluation of his buttocks. 05/10: Patient required straight cath 2 yesterday and on next bladders can most likely Walton catheter will be required. Zanaflex discontinued and Flomax increased twice daily. Patient has been seen by general surgery with no plan for surgical intervention at this time. Wound Center has added wound care in the form of absorptive silver rope, saline moist gauze, dry gauze and AVD secure with tape as needed. Change Friday. Patient has been afebrile, heart rate 86, blood pressure 140/88, pulse ox 90% on 4 L nasal cannula. Creatinine 0.65. Blood sugars are running between 97 and 123. Blood cultures no growth at 24 hours. Social work is following for return to [facility]. 05/11: Patient is afebrile, heart rate 70, blood pressure 130/74, pulse ox 98% on nonrebreather she was started yesterday. This apparently was done because lefty ayala is refusing to take nebulizer and is having increased wheezing. He states the medications we have for the nebulizers causes him to have migraines. Patient is normally on O2 at 3 L. He does have CPAP and this will be started. Patient will be switched back to nasal cannula with aim of pulse ox no higher than 90%. Wound culture has been obtained today. Repeat blood work reveals WBC 7.8, hemoglobin 10.8, platelet count 200. Electrodes are normal. Creatinine 0.64. Blood sugars have been running in the 70s and 80s. Blood culture showing no growth at [address] Hunter is continuing Unasyn and vancomycin with recommendations for drainage of the abscess. Anticipate discharge back to [facility] early next week 05/12: Patient is found resting comfortably in bed in no acute distress. Patient has no complaints or concerns at this time. Patient remained afebrile, heart rate 55, respirations 22, blood pressure 103/69, pulse ox is 100% on BiPAP. Patient of Unasyn and vancomycin. He continues to have drainage from the site. No fever. Patient states that the pain has decreased. Sodium 140, potassium 4.0, BUN 10, creatinine 0.57 REVIEW OF SYSTEMS Constitutional: No fever, no chills, no night sweats. No weight change. Chroni c weakness, chronic fatigue no lethargy. No daytime sleepiness. EENT: Reports headache. No blurred vision or double vision, no loss of vision. No loss of Hearing, no ringing in the ears, no dizziness. No nasal drainage or congestion. No epistaxis. No sore throat. Lungs: Chronic shortness of breath, cough, no sputum production. No wheezing. Chronic dyspnea with minimal exertion. Cardiovascular: No chest pain, no lower extremity edema. No palpitations. No paroxysmal nocturnal dyspnea. No orthopnea. No lightheadedness or dizziness. No syncopal episodes. Abdominal: No abdominal pain. No nausea, vomiting. No diarrhea. No constipation. No bloody or tarry stools.. No loss of appetite. Genitourinary: No dysuria, increased frequency, urgency. Reports urinary retention. Musculoskeletal: No myalgias. Chronic muscle weakness, chronic gait dysfunction, no frequent falls. No back pain. No neck pain. Integumentary: Reported wounds, no lesions. No rash or pruritus. Neurologic: No aphasia. No facial droop. No change in mentation. No head injury. No headache. No paralysis. No paresthesia. Psychiatric: No depression. No anxiety. No mood swings. Endocrine: No abnormal blood sugars. PHYSICAL EXAMINATION Gen: This is a 60-year-old male patient, resting in bed and appears to be comfortable. HEENT: Head is atraumatic, normocephalic. Pupils equal, round. Sclerae is anicteric. NECK: Supple. No JVD. No lymphadenopathy. No thyromegaly. LUNGS: Bilateral expiratory wheeze and rhonchi. No intercostal retractions. HEART: Regular rate and rhythm. No murmur. ABDOMEN: Soft. Bowel sounds are present. No masses. No tenderness. Walton catheter draining clear annette urine. EXTREMITIES: No pedal edema. No calf tenderness. BUTTOCKS: Patient refuses examination of his buttocks. Nursing to obtain photos once he moves to [facility] room. NEUROLOGICAL: Patient is awake, alert and oriented x3. Cranial nerves 2 through 12 are grossly intact. ASSESSMENT AND PLAN 1. Left gluteal abscess and cellulitis. Consult with infectious disease appreciated, continue Unasyn 3 g IV piggyback every 6 hours, vancomycin, pharmacy dosing, Wound Center consult with recommendations for absorptive silver rope, saline moist gauze, dry gauze and AVD secure with tape as needed. Change Friday. Wound culture was obtained on 05/11. 2. Organoaxial volvulus in gas distended stomach. Consult with Dr. York. Patient is currently on a regular diet. 3. End-stage COPD. Continue DuoNeb treatments every 4 hours as needed, albuterol as needed, Symbicort 2 puffs twice daily. Patient is refusing nebulizer treatments. 4. Chronic hypoxic respiratory failure on home O2. Continue oxygen therapy and resume nasal cannula with CPAP. Maintain pulse ox no higher than 90%.. 5. Hyperlipidemia. Continue atorvastatin 20 mg at bedtime. 6. Chronic atrial fibrillation. Continue eliquis 5 mg twice daily if okay with general surgery. 7. Migraine headache. Continue Fioricet 1 every 4 hours as needed, Topamax 50 mg twice daily. 8. Parkinson's disease. Valium 2 mg 3 times daily, Cary 10 1 scheduled 3 times daily at 5 AM, 1 PM and 9 PM, Zanaflex 4 mg at bedtime and 2 mg every 6 hours as needed. 9. Benign prostatic hypertrophy. Continue Flomax 0.4 mg at bedtime. 10. Gastroesophageal reflux disease and GI prophylaxis. Continue Protonix 40 mg daily. 11. Diabetes mellitus type 2. Resume metformin 750 mg twice daily, NovoLog scale before meals and at bedtime. 12. Hypertension. Continue Diamox 250 mg daily, Lasix 20 mg daily. 13. DVT prophylaxis. Eliquis if okay with general surgery. 14. COVID-19 testing negative. Patient has been hospitalized during a pandemic. DISCHARGE PLAN Return to [facility] under the care of Dr. Maradiaga next week. Impression and plan of care have been directed as dictated by the signing physician. Lisa Allison nurse practitioner acting as scribe for signing physician. Objective - Vital Signs Vital signs: Vital Signs Temp 98.1 F 05/12/21 12:14 Pulse 65 05/12/21 12:14 Resp 22 05/12/21 12:14 BP 103/69 05/12/21 12:14 Pulse Ox 100 05/12/21 12:14 Intake & Output 05/11/21 05/12/21 05/12/21 18:59 06:59 18:59 Intake Total 1910 475 Output Total 1150 1800 Balance 760 -1325 Intake: Intake, IV Titration 1100 375 Amount Ampicillin-Sulbactam 3 gm 200 In Sodium Chloride 0.9% 100 ml @ 200 mls/hr IVPB Q6H [facility] Rx#:[id number] Sodium Chloride 0.9% 1, 650 375 000 ml @ 75 mls/hr IV . [id number] [facility] Rx#:[id number] Vancomycin 1,250 mg In 250 Sodium Chloride 0.9% 250 ml @ 125 mls/hr IVPB Q12H [facility] Rx#:[id number] Oral 810 100 Output: Urine 1150 1800 Uretheral (Walton) 900 Other: Voiding Method Indwelling Catheter Indwelling Catheter - Labs CBC & Chem 7: 05/11/21 05:38 05/12/21 07:43 Labs: Abnormal Lab Results - Last 24 Hours (Table) 05/11/21 05/11/21 05/12/21 Range/Units 17:18 20:53 07:18 Carbon Dioxide (22-30) mmol/L Creatinine (0.66-1.25) mg/dL Glucose (74-99) mg/dL POC Glucose (mg/dL) 181 H 170 H 138 H (75-99) mg/dL 05/12/21 05/12/21 Range/Units 07:43 11:40 Carbon Dioxide 35 H (22-30) mmol/L Creatinine 0.57 L (0.66-1.25) mg/dL Glucose 145 H (74-99) mg/dL POC Glucose (mg/dL) 180 H (75-99) mg/dL Microbiology - Last 24 Hours (Table) 05/11/21 11:00 Gram Stain - Preliminary Buttock Wound Culture - Preliminary Gram Neg Bacilli Gram Neg Bacilli#2 05/08/21 14:55 Blood Culture - Preliminary Blood No Growth after 72 hours 05/11/21 11:00 Anaerobic Culture - Preliminary Buttock Assessment and Plan (1) Non-pressure chronic ulcer of buttock with fat layer exposed Current Visit: Yes Status: Acute Code(s): L98.412 - NON-PRESSURE CHRONIC ULCER OF BUTTOCK WITH FAT LAYER EXPOSED SNOMED Code(s): 696156429 (2) Cellulitis and abscess of buttock Current Visit: No Status: Acute Code(s): L02.31 - CUTANEOUS ABSCESS OF BUTTOCK; L03.317 - CELLULITIS OF BUTTOCK SNOMED Code(s): 955113292
[2021-05-12 17:14] LABS: Glucose,Whole Blood 141 mg/dL (75-99)
--- NOTE | 2021-05-12 17:14 | PN ---
PROGRESS NOTE DATE OF SERVICE: 05/12/2021 REASON FOR FOLLOWUP: Left gluteal abscess cellulitis. INTERVAL HISTORY: Patient is afebrile. He is breathing comfortably, currently on BiPAP. Denies having any chest pain or cough. No abdominal pain. Pain to the left foot has decreased. PHYSICAL EXAMINATION: Blood pressure 103/69, pulse of 65. Temperature 98.1. He is 100% on BiPAP. General description is a middle-aged male lying in bed in no distress. Respiratory system: Unlabored breathing, decreased intensity of breath sounds. No wheeze. Heart S1, S2. Regular rate and rhythm. Abdomen soft, no tenderness. LABS: Antibiotic has been switched over to Augmentin with no gram-negative. Vancomycin will be discontinued. Continue supportive care. MMODL / IJN: [id number] /
[2021-05-12] MEDS: MAG HYDROX/AL HYDROX/SIMETH 30 ML CUP PO PRN (17:38)
[2021-05-12 20:43] LABS: Glucose,Whole Blood 169 mg/dL (75-99)
[2021-05-12] MEDS: ATORVASTATIN 20 MG TAB PO SCH (21:05)
[2021-05-12] MEDS: MELATONIN 5 MG TABLET PO SCH (21:05)
[2021-05-13] MEDS: HYDROmorphone 0.5 MG/0.5 ML SYRINGE IVP PRN ×3 (00:18→10:28)
[2021-05-13] MEDS: SODIUM CHLORIDE 0.9% 1,000 ML IV SCH ×2 (00:43→14:00)
[2021-05-13] MEDS: ONDANSETRON 4 MG/2 ML VIAL IVP PRN (03:16)
[2021-05-13] MEDS: HYDROcodone/APAP 10-325MG 1 EACH TAB PO SCH ×3 (04:58→20:46)
[2021-05-13] MEDS: FUROSEMIDE 20 MG TAB PO SCH (04:59)
[2021-05-13] MEDS: PANTOPRAZOLE 40 MG TABLET PO SCH (04:59)
[2021-05-13] MEDS: busPIRone HCl 10 MG TAB PO SCH ×3 (04:59→21:03)
[2021-05-13] MEDS: methylPREDNISolone SOD SUCCI 125 MG/2 ML VIAL IV SCH ×4 (04:59→23:39)
[2021-05-13] MEDS: TRIHEXYPHENIDYL 2 MG TAB PO SCH ×3 (04:59→21:04)
[2021-05-13] MEDS: diazePAM 2 MG TAB PO SCH ×3 (04:59→17:59)
[2021-05-13] MEDS ORDERED: VANCOMYCIN TROUGH DUE 1 EACH MISC MISCELLANE ONE (05:00)
[2021-05-13 07:05] LABS: Glucose,Whole Blood 148 mg/dL (75-99)
[2021-05-13 08:30] LABS: African American GFR (CKD) >90 (>60 ml/min/1.73 sqM); Anion Gap 2 mmol/L; Blood Urea Nitrogen 16 mg/dL (9-20); Calcium 8.6 mg/dL (8.4-10.2); Carbon Dioxide 36 mmol/L (22-30); Chloride 101 mmol/L (98-107); Glucose 149 mg/dL (74-99); Non-African American GFR(CKD) >90 (>60 ml/min/1.73 sqM); Potassium 4.1 mmol/L (3.5-5.1); Sodium 139 mmol/L (137-145)
[2021-05-13] MEDS: SYMBICORT 80-4.5 MCG INHALER INHALATION SCH ×2 (08:49→19:13)
[2021-05-13] MEDS: IPRATROPIUM 0.5 MG/2.5 ML NEBU INHALATION SCH ×4 (08:51→19:13)
[2021-05-13] MEDS: INSULIN ASPART (NovoLOG) 100 UNIT/ML VIAL SQ SCH ×4 (09:16→20:46)
[2021-05-13] MEDS: PSYLLIUM HUSK 100% 6 GM PACKET PO SCH (09:16)
[2021-05-13] MEDS: metFORMIN 500 MG TAB PO SCH ×2 (09:17→17:59)
[2021-05-13] MEDS: AMOXIC-POT CLAV 875-125MG 1 EACH TAB PO SCH (09:18)
[2021-05-13] MEDS: POTASSIUM CHLORIDE ER 20 MEQ TAB.ER PO SCH (09:18)
[2021-05-13] MEDS: ASPIRIN 81 MG PO SCH (09:18)
[2021-05-13] MEDS: APIXABAN 5 MG TAB PO SCH ×2 (09:18→20:46)
[2021-05-13] MEDS: acetaZOLAMIDE 250 MG TAB PO SCH (09:18)
[2021-05-13] MEDS: MONTELUKAST 10 MG TAB PO SCH (09:18)
[2021-05-13] MEDS: FINASTERIDE 5 MG TAB PO SCH (09:18)
[2021-05-13] MEDS: TAMSULOSIN 0.4 MG CAP.ER.24H PO SCH ×2 (09:19→20:45)
[2021-05-13] MEDS: SENNOSIDES-DOCUSATE SODIUM 1 EACH TAB PO SCH (09:19)
[2021-05-13] MEDS: TOPIRAMATE 25 MG TAB PO SCH ×2 (09:20→18:00)
[2021-05-13] MEDS ORDERED: MAGNESIUM CITRATE 296 ML BOTTLE PO ONE (10:05)
--- NOTE | 2021-05-13 10:05 | P.PN ---
Subjective Progress Note Date: 05/13/21 Principal diagnosis: buttock abscess Patient says he is having no discomfort unless he is sitting right on the left buttock region. Decreased drainage. No bowel movement. Objective - Vital Signs Vital signs: Vital Signs Temp 98.0 F 05/13/21 03:20 Pulse 59 L 05/13/21 03:20 Resp 18 05/13/21 03:20 BP 120/84 05/13/21 03:20 Pulse Ox 99 05/13/21 03:20 Intake & Output 05/12/21 05/13/21 05/13/21 18:59 06:59 18:59 Intake Total 1040 100 Output Total 550 500 Balance 490 -400 Intake: Oral 1040 100 Output: Urine 550 500 Other: Voiding Method Indwelling Catheter - Exam Abdomen: Soft, nondistended, nontender Left buttock abscess site with mild induration, no erythema, no obvious drainage - Labs CBC & Chem 7: 05/11/21 05:38 05/13/21 07:53 Labs: Abnormal Lab Results - Last 24 Hours (Table) 05/12/21 05/12/21 05/12/21 Range/Units 11:40 17:08 20:35 Carbon Dioxide (22-30) mmol/L Creatinine (0.66-1.25) mg/dL Glucose (74-99) mg/dL POC Glucose (mg/dL) 180 H 141 H 169 H (75-99) mg/dL 05/13/21 05/13/21 Range/Units 07:04 07:53 Carbon Dioxide 36 H (22-30) mmol/L Creatinine 0.62 L (0.66-1.25) mg/dL Glucose 149 H (74-99) mg/dL POC Glucose (mg/dL) 148 H (75-99) mg/dL Microbiology - Last 24 Hours (Table) 05/08/21 14:55 Blood Culture - Preliminary Blood No Growth after 96 hours 05/11/21 11:00 Gram Stain - Preliminary Buttock Wound Culture - Preliminary Gram Neg Bacilli Gram Neg Bacilli#2 Assessment and Plan (1) Cellulitis and abscess of buttock Narrative/Plan: Continue antibiotics for abscess left buttock. Will give magnesium citrate for complaints of constipation. Continue diet. Current Visit: No Status: Acute Code(s): L02.31 - CUTANEOUS ABSCESS OF BUTTOCK; L03.317 - CELLULITIS OF BUTTOCK SNOMED Code(s): 340330253
[2021-05-13] MEDS: HYDROCORTISONE 2.5% RECTAL CREAM 30 GM TUBE RECTAL SCH ×2 (10:31→20:46)
--- NOTE | 2021-05-13 11:34 | P.PN ---
Subjective Progress Note Date: 05/13/21 HISTORY OF PRESENT ILLNESS This is a 60-year-old male patient of Dr. Maradiaga, long-term resident at [facility], with past medical history of end-stage COPD, stage IV, chronic hypoxic resp iratory failure, Covid 19 infection December 2020, hyperlipidemia, chronic atrial fibrillation on long-term anticoagulation, gastroesophageal reflux disease, Parkinson's disease, diabetes mellitus type 2, generalized anxiety disorder, migraine headaches, benign prostatic hypertrophy. Patient has received treatment for cellulitis to the left gluteal area for which she was treated with Bactrim became swollen with increasing pain. Patient complains of a throbbing pain as well as migraine headache. No fever or chills. He has chronic shortness of breath but no worsening. Patient was brought into [facility] emergency center for evaluation. CAT scan with contrast revealed subcutaneous infection and/or cellulitis inferior medial left gluteal region without well formed fluid collection or abscess. There is organoaxial volvulus in gas distended stomach. WBC 8.3, hemoglobin 11.9, platelet count 315. Electrolytes and renal function normal. Blood sugar 120. Liver function tests are normal. Coronavirus PCR not detected. Patient admitted to the [facility] floor waiting in the observation unit and consult in place with general surgery and infectious disease. Patient has been seen by Dr. Hunter and on Unasyn and vancomycin. At this time, patient refuses to allow evaluation of his buttocks. 05/10: Patient required straight cath 2 yesterday and on next bladders can most likely Walton catheter will be required. Zanaflex discontinued and Flomax increased twice daily. Patient has been seen by general surgery with no plan for surgical intervention at this time. Wound Center has added wound care in the form of absorptive silver rope, saline moist gauze, dry gauze and AVD secure with tape as needed. Change Friday. Patient has been afebrile, heart rate 86, blood pressure 140/88, pulse ox 90% on 4 L nasal cannula. Creatinine 0.65. Blood sugars are running between 97 and 123. Blood cultures no growth at 24 hours. Social work is following for return to [facility]. 05/11: Patient is afebrile, heart rate 70, blood pressure 130/74, pulse ox 98% on nonrebreather she was started yesterday. This apparently was done because lefty ayala is refusing to take nebulizer and is having increased wheezing. He states the medications we have for the nebulizers causes him to have migraines. Patient is normally on O2 at 3 L. He does have CPAP and this will be started. Patient will be switched back to nasal cannula with aim of pulse ox no higher than 90%. Wound culture has been obtained today. Repeat blood work reveals WBC 7.8, hemoglobin 10.8, platelet count 200. Electrodes are normal. Creatinine 0.64. Blood sugars have been running in the 70s and 80s. Blood culture showing no growth at [address] Hunter is continuing Unasyn and vancomycin with recommendations for drainage of the abscess. Anticipate discharge back to [facility] early next week 05/12: Patient is found resting comfortably in bed in no acute distress. Patient has no complaints or concerns at this time. Patient remained afebrile, heart rate 55, respirations 22, blood pressure 103/69, pulse ox is 100% on BiPAP. Patient of Unasyn and vancomycin. He continues to have drainage from the site. No fever. Patient states that the pain has decreased. Sodium 140, potassium 4.0, BUN 10, creatinine 0.57 05/13: Patient is found resting comfortably in bed with BiPAP in place. Patient states that he feels more comfortable wearing the BiPAP machine. If he is taking also that he is requesting a Ventimask instead of a nasal cannula. His respiratory rate and effort does not require a BiPAP this is the patient's personal preference. Patient states that the pain continues to decrease. He has less drainage from the site. Patient remains afebrile, heart rate 59, blood pressure 120/84, 99% on BiPAP with FiO2 of 40 REVIEW OF SYSTEMS Constitutional: No fever, no chills, no night sweats. No weight change. Chronic weakness, chronic fatigue no lethargy. No daytime sleepiness. EENT: Reports headache. No blurred vision or double vision, no loss of vision. No loss of Hearing, no ringing in the ears, no dizziness. No nasal drainage or congestion. No epistaxis. No sore throat. Lungs: Chronic shortness of breath, cough, no sputum production. No wheezing. Chronic dyspnea with minimal exertion. Cardiovascular: No chest pain, no lower extremity edema. No palpitations. No paroxysmal nocturnal dyspnea. No orthopnea. No lightheadedness or dizziness. No syncopal episodes. Abdominal: No abdominal pain. No nausea, vomiting. No diarrhea. No constipation. No bloody or tarry stools.. No loss of appetite. Genitourinary: No dysuria, increased frequency, urgency. Reports urinary reten tion. Musculoskeletal: No myalgias. Chronic muscle weakness, chronic gait dysfunction, no frequent falls. No back pain. No neck pain. Integumentary: Reported wounds, no lesions. No rash or pruritus. Neurologic: No aphasia. No facial droop. No change in mentation. No head injury. No headache. No paralysis. No paresthesia. Psychiatric: No depression. No anxiety. No mood swings. Endocrine: No abnormal blood sugars. PHYSICAL EXAMINATION Gen: This is a 60-year-old male patient, resting in bed and appears to be comfortable. HEENT: Head is atraumatic, normocephalic. Pupils equal, round. Sclerae is anicteric. NECK: Supple. No JVD. No lymphadenopathy. No thyromegaly. LUNGS: Bilateral expiratory wheeze and rhonchi. No intercostal retractions. HEART: Regular rate and rhythm. No murmur. ABDOMEN: Soft. Bowel sounds are present. No masses. No tenderness. Walton catheter draining clear annette urine. EXTREMITIES: No pedal edema. No calf tenderness. BUTTOCKS: Patient refuses examination of his buttocks. Nursing to obtain photos once he moves to [facility] room. NEUROLOGICAL: Patient is awake, alert and oriented x3. Cranial nerves 2 through 12 are grossly intact. ASSESSMENT AND PLAN 1. Left gluteal abscess and cellulitis. Consult with infectious disease appreciated, continue Unasyn 3 g IV piggyback every 6 hours, vancomycin, pharmacy dosing, Wound Center consult with recommendations for absorptive silver rope, saline moist gauze, dry gauze and AVD secure with tape as needed. Change Friday. Wound culture was obtained on 05/11. 2. Organoaxial volvulus in gas distended stomach. Consult with Dr. York. Patient is currently on a regular diet. 3. End-stage COPD. Continue DuoNeb treatments every 4 hours as needed, albuterol as needed, Symbicort 2 puffs twice daily. Patient is refusing nebuliz er treatments. 4. Chronic hypoxic respiratory failure on home O2. Continue oxygen therapy and resume nasal cannula with CPAP. Maintain pulse ox no higher than 90%.. 5. Hyperlipidemia. Continue atorvastatin 20 mg at bedtime. 6. Chronic atrial fibrillation. Continue eliquis 5 mg twice daily if okay with general surgery. 7. Migraine headache. Continue Fioricet 1 every 4 hours as needed, Topamax 50 mg twice daily. 8. Parkinson's disease. Valium 2 mg 3 times daily, Kerby 10 1 scheduled 3 times daily at 5 AM, 1 PM and 9 PM, Zanaflex 4 mg at bedtime and 2 mg every 6 hours as needed. 9. Benign prostatic hypertrophy. Continue Flomax 0.4 mg at bedtime. 10. Gastroesophageal reflux disease and GI prophylaxis. Continue Protonix 40 mg daily. 11. Diabetes mellitus type 2. Resume metformin 750 mg twice daily, NovoLog scale before meals and at bedtime. 12. Hypertension. Continue Diamox 250 mg daily, Lasix 20 mg daily. 13. DVT prophylaxis. Eliquis if okay with general surgery. 14. COVID-19 testing negative. Patient has been hospitalized during a pandemic. DISCHARGE PLAN Return to [facility] under the care of Dr. Maradiaga next week. Impression and plan of care have been directed as dictated by the signing physician. Lisa Allison nurse practitioner acting as scribe for signing physician. Objective - Vital Signs Vital signs: Vital Signs Temp 98.0 F 05/13/21 03:20 Pulse 59 L 05/13/21 03:20 Resp 18 05/13/21 03:20 BP 120/84 05/13/21 03:20 Pulse Ox 99 05/13/21 03:20 Intake & Output 05/12/21 05/13/21 05/13/21 18:59 06:59 18:59 Intake Total 1040 100 Output Total 550 500 Balance 490 -400 Intake: Oral 1040 100 Output: Urine 550 500 Other: Voiding Method Indwelling Catheter - Labs CBC & Chem 7: 05/11/21 05:38 05/13/21 07:53 Labs: Abnormal Lab Results - Last 24 Hours (Table) 05/12/21 05/12/21 05/12/21 Range/Units 11:40 17:08 20:35 Carbon Dioxide (22-30) mmol/L Creatinine (0.66-1.25) mg/dL Glucose (74-99) mg/dL POC Glucose (mg/dL) 180 H 141 H 169 H (75-99) mg/dL 05/13/21 05/13/21 Range/Units 07:04 07:53 Carbon Dioxide 36 H (22-30) mmol/L Creatinine 0.62 L (0.66-1.25) mg/dL Glucose 149 H (74-99) mg/dL POC Glucose (mg/dL) 148 H (75-99) mg/dL Microbiology - Last 24 Hours (Table) 05/08/21 14:55 Blood Culture - Preliminary Blood No Growth after 96 hours 05/11/21 11:00 Gram Stain - Preliminary Buttock Wound Culture - Preliminary Gram Neg Bacilli Gram Neg Bacilli#2 Assessment and Plan (1) Non-pressure chronic ulcer of buttock with fat layer exposed Current Visit: Yes Status: Acute Code(s): L98.412 - NON-PRESSURE CHRONIC ULCER OF BUTTOCK WITH FAT LAYER EXPOSED SNOMED Code(s): 348503450 (2) Cellulitis and abscess of buttock Current Visit: No Status: Acute Code(s): L02.31 - CUTANEOUS ABSCESS OF BUTTOCK; L03.317 - CELLULITIS OF BUTTOCK SNOMED Code(s): 472367443
[2021-05-13 12:17] LABS: Glucose,Whole Blood 135 mg/dL (75-99)
[2021-05-13] MEDS: MAG HYDROX/AL HYDROX/SIMETH 30 ML CUP PO PRN (13:59)
[2021-05-13 17:27] LABS: Glucose,Whole Blood 165 mg/dL (75-99)
[2021-05-13] MEDS: CEFEPIME 2 GM in SODIUM CHLORIDE 0.9% 100 ML IVPB SCH (18:00)
[2021-05-13 20:22] LABS: Glucose,Whole Blood 156 mg/dL (75-99)
[2021-05-13] MEDS: ATORVASTATIN 20 MG TAB PO SCH (21:03)
[2021-05-13] MEDS: MELATONIN 5 MG TABLET PO SCH (21:03)
[2021-05-14] MEDS: CEFEPIME 2 GM in SODIUM CHLORIDE 0.9% 100 ML IVPB SCH ×2 (00:58→08:29)
--- NOTE | 2021-05-14 03:01 | PN ---
PROGRESS NOTE DATE OF SERVICE: 05/13/2021 REASON FOR FOLLOWUP: Left gluteal abscess and cellulitis. INTERVAL HISTORY: The patient is afebrile. The patient is breathing comfortably. The patient denies having any chest pain or any cough. No abdominal pain or diarrhea. PHYSICAL EXAMINATION: Blood pressure is 107/71 with a pulse of 56, temperature 98.4. He is 98% on BiPAP. General description is a middle-aged male lying in bed in no distress. Respiratory system: Unlabored breathing, clear to auscultation anteriorly. Heart S1, S2. Regular rate and rhythm. Abdomen soft, no tenderness. Extremities: No edema of the feet. LABS: Creatinine 0.62. Local culture positive for Pseudomonas and Proteus resistant to quinolones. DIAGNOSTIC IMPRESSION AND PLAN: Patient with left gluteal abscess, cellulitis. The patient's organism resistant to the oral antibiotic. Antibiotic has been adjusted to cefepime. He will need a midline for continuation of antibiotic on discharge. Continue supportive care. MMODL / IJN: [id number] /
[2021-05-14] MEDS: HYDROmorphone 0.5 MG/0.5 ML SYRINGE IVP PRN ×2 (03:49→11:34)
[2021-05-14] MEDS: SODIUM CHLORIDE 0.9% 1,000 ML IV SCH (03:53)
[2021-05-14] MEDS: FUROSEMIDE 20 MG TAB PO SCH (05:52)
[2021-05-14] MEDS: HYDROcodone/APAP 10-325MG 1 EACH TAB PO SCH ×2 (05:52→12:38)
[2021-05-14] MEDS: TRIHEXYPHENIDYL 2 MG TAB PO SCH (05:52)
[2021-05-14] MEDS: busPIRone HCl 10 MG TAB PO SCH (05:52)
[2021-05-14] MEDS: methylPREDNISolone SOD SUCCI 125 MG/2 ML VIAL IV SCH ×2 (05:52→12:06)
[2021-05-14] MEDS: PANTOPRAZOLE 40 MG TABLET PO SCH (05:52)
[2021-05-14] MEDS: diazePAM 2 MG TAB PO SCH ×2 (05:52→12:06)
[2021-05-14 06:29] LABS: African American GFR (CKD) >90 (>60 ml/min/1.73 sqM); Anion Gap 2 mmol/L; Blood Urea Nitrogen 19 mg/dL (9-20); Calcium 8.8 mg/dL (8.4-10.2); Carbon Dioxide 36 mmol/L (22-30); Chloride 102 mmol/L (98-107); Glucose 140 mg/dL (74-99); Non-African American GFR(CKD) >90 (>60 ml/min/1.73 sqM); Potassium 4.3 mmol/L (3.5-5.1); Sodium 140 mmol/L (137-145)
[2021-05-14] MEDS: IPRATROPIUM 0.5 MG/2.5 ML NEBU INHALATION SCH ×2 (07:14→11:36)
[2021-05-14] MEDS: SYMBICORT 80-4.5 MCG INHALER INHALATION SCH (07:14)
[2021-05-14 07:32] LABS: Glucose,Whole Blood 123 mg/dL (75-99)
[2021-05-14] MEDS: INSULIN ASPART (NovoLOG) 100 UNIT/ML VIAL SQ SCH ×2 (07:44→12:39)
[2021-05-14] MEDS: MAG HYDROX/AL HYDROX/SIMETH 30 ML CUP PO PRN ×2 (08:25→13:46)
[2021-05-14] MEDS: TOPIRAMATE 25 MG TAB PO SCH (08:26)
[2021-05-14] MEDS: APIXABAN 5 MG TAB PO SCH (08:27)
[2021-05-14] MEDS: acetaZOLAMIDE 250 MG TAB PO SCH (08:27)
[2021-05-14] MEDS: FINASTERIDE 5 MG TAB PO SCH (08:27)
[2021-05-14] MEDS: ASPIRIN 81 MG PO SCH (08:28)
[2021-05-14] MEDS: metFORMIN 500 MG TAB PO SCH (08:28)
[2021-05-14] MEDS: POTASSIUM CHLORIDE ER 20 MEQ TAB.ER PO SCH (08:28)
[2021-05-14] MEDS: TAMSULOSIN 0.4 MG CAP.ER.24H PO SCH (08:28)
[2021-05-14] MEDS: MONTELUKAST 10 MG TAB PO SCH (08:28)
[2021-05-14] MEDS: SENNOSIDES-DOCUSATE SODIUM 1 EACH TAB PO SCH (08:29)
[2021-05-14] MEDS: HYDROCORTISONE 2.5% RECTAL CREAM 30 GM TUBE RECTAL SCH (08:29)
[2021-05-14] MEDS: PSYLLIUM HUSK 100% 6 GM PACKET PO SCH (08:29)
--- NOTE | 2021-05-14 10:24 | P.DS ---
Providers Date of admission: 05/08/21 14:52 Expected date of discharge: 05/14/21 Attending physician: Zack Simental MD Consults: 05/08/21 14:46 Consult Physician Routine Consulting Provider: Victor M York Consult Reason/Comments: stomach volvulus Do you want consulting provider notified?: Already Contacted 05/08/21 14:47 Consult Physician Routine Consulting Provider: Amari Hunter Consult Reason/Comments: cellulitis of buttock Do you want consulting provider notified?: Yes Primary care physician: Lona Maradiaga [facility] Course: HISTORY OF PRESENT ILLNESS This is a 60-year-old male patient of Dr. Maradiaga, long-term resident at [facility], with past medical history of end-stage COPD, stage IV, chronic hypoxic respiratory failure, Covid 19 infection December 2020, hyperlipidemia, chronic atrial fibrillation on long-term anticoagulation, gastroesophageal reflux disease, Parkinson's disease, diabetes mellitus type 2, generalized anxiety disorder, mi graine headaches, benign prostatic hypertrophy. Patient has received treatment for cellulitis to the left gluteal area for which she was treated with Bactrim became swollen with increasing pain. Patient complains of a throbbing pain as well as migraine headache. No fever or chills. He has chronic shortness of breath but no worsening. Patient was brought into [facility] emergency center for evaluation. CAT scan with contrast revealed subcutaneous infection and/or cellulitis inferior medial left gluteal region without well formed fluid collection or abscess. There is organoaxial volvulus in gas distended stomach. WBC 8.3, hemoglobin 11.9, platelet count 315. Electrolytes and renal function normal. Blood sugar 120. Liver function tests are normal. Coronavirus PCR not detected. Patient admitted to the [facility] floor waiting in the observation unit and consult in place with general surgery and infectious disease. Patient has been seen by Dr. Hunter and on Unasyn and vancomycin. At this time, patient refuses to allow evaluation of his buttocks. 05/10: Patient required straight cath 2 yesterday and on next bladders can most likely Walton catheter will be required. Zanaflex discontinued and Flomax increased twice daily. Patient has been seen by general surgery with no plan for surgical intervention at this time. Wound Center has added wound care in the form of absorptive silver rope, saline moist gauze, dry gauze and AVD secure with tape as needed. Change Friday. Patient has been afebrile, heart rate 86, blood pressure 140/88, pulse ox 90% on 4 L nasal cannula. Creatinine 0.65. Blood sugars are running between 97 and 123. Blood cultures no growth at 24 hours. Social work is following for return to [facility]. 05/11: Patient is afebrile, heart rate 70, blood pressure 130/74, pulse ox 98% on nonrebreather she was started yesterday. This apparently was done because patient is refusing to take nebulizer and is having increased wheezing. He states the medications we have for the nebulizers causes him to have migraines. Patient is normally on O2 at 3 L. He does have CPAP and this will be started. Patient will be switched back to nasal cannula with aim of pulse ox no higher than 90%. Wound culture has been obtained today. Repeat blood work reveals WBC 7.8, hemoglobin 10.8, platelet count 200. Electrodes are normal. Creatinine 0.64. Blood sugars have been running in the 70s and 80s. Blood culture showing no growth at [address] Hunter is continuing Unasyn and vancomycin with recom mendations for drainage of the abscess. Anticipate discharge back to [facility] early next week 05/12: Patient is found resting comfortably in bed in no acute distress. Patient has no complaints or concerns at this time. Patient remained afebrile, heart rate 55, respirations 22, blood pressure 103/69, pulse ox is 100% on BiPAP. Patient of Unasyn and vancomycin. He continues to have drainage from the site. No fever. Patient states that the pain has decreased. Sodium 140, potassium 4.0, BUN 10, creatinine 0.57 05/13: Patient is found resting comfortably in bed with BiPAP in place. Patient states that he feels more comfortable wearing the BiPAP machine. If he is taking also that he is requesting a Ventimask instead of a nasal cannula. His respiratory rate and effort does not require a BiPAP this is the patient's personal preference. Patient states that the pain continues to decrease. He has less drainage from the site. Patient remains afebrile, heart rate 59, blood pressure 120/84, 99% on BiPAP with FiO2 of 40 05/14: Dr. Hunter has recommended cefepime to continue for 2 weeks as well as Flagyl. Midline has been ordered. Patient will be discharged to [facility] once midline is completed arrangements completed for discharge. ASSESSMENT AND PLAN 1. Left gluteal abscess and cellulitis. 2. Organoaxial volvulus in gas distended stomach. 3. End-stage COPD. 4. Chronic hypoxic respiratory failure on home O2. 5. Hyperlipidemia. 6. Chronic atrial fibrillation. 7. Migraine headache. 8. Parkinson's disease. 9. Benign prostatic hypertrophy. 10. Gastroesophageal reflux disease. 11. Diabetes mellitus type 2. 12. Hypertension. 13. COVID-19 testing negative. Patient has been hospitalized during a pandemic. DISCHARGE PLAN Return to [facility] under the care of Dr. Maradiaga Impression and plan of care have been directed as dictated by the signing physician. Aggie Oliav nurse practitioner acting as scribe for signing physician. Patient Condition at Discharge: Stable Plan - Discharge Summary Discharge Rx Participant: No New Discharge Prescriptions: New INSULIN ASPART (NovoLOG) [NovoLOG (formulary)] 0 unit SQ ACHS ml metroNIDAZOLE [Flagyl] 500 mg PO Q8HR #42 tab predniSONE 0 mg PO DIRECTED #30 tab Finasteride [Proscar] 5 mg PO DAILY tab Cefepime [Maxipime] 2 gm IVPB Q8H #42 each Continue Acetaminophen Tab [Tylenol] 650 mg PO Q4H PRN PRN Reason: Pain Or Fever > 100.5 Tamsulosin [Flomax] 0.4 mg PO HS@2200 Pantoprazole [Protonix] 40 mg PO DAILY@0600 Atorvastatin [Lipitor] 20 mg PO HS@2200 Mylanta Double Strength 10 ml PO Q4H PRN PRN Reason: Bloating Ipratropium-Albuterol Nebulize [Duoneb 0.5 mg-3 mg/3 ml Soln] 3 ml INHALATION RT-Q4H PRN #1 PRN Reason: Shortness Of Breath Trihexyphenidyl [Artane] 2 mg PO TID@0600,1400,2200 Topiramate [Topamax] 50 mg PO BID@0900,1700 tiZANidine [Zanaflex] 2 mg PO Q6H PRN PRN Reason: Muscle Spasm Sennosides/Docusate Sodium [Senna Plus 8.6-50 mg Softgel] 2 cap PO DAILY@0900 Phenyleph/Mineral Oil/Petrolat [Preparation H Ointment] 1 applic RECTAL Q12H PRN PRN Reason: Hemorrhoids Montelukast [Singulair] 10 mg PO DAILY@0900 Melatonin 15 mg PO HS@2200 Potassium Chloride [Klor-Con 10 ER] 20 meq PO DAILY@0900 Apixaban [Eliquis] 5 mg PO BID@0900,2100 Aspirin EC [Ecotrin Low Dose] 81 mg PO DAILY@0900 Hydrocortisone Pr Cream [Proctosol-Hc 2.5%] 1 applic RECTAL BID acetaZOLAMIDE [Diamox] 250 mg PO DAILY@0900 Lactose-Reduced Food [Ensure Plus] 1 can PO BID@0900,1300 tiZANidine HCL [Zanaflex] 4 mg PO HS Lidocaine 2% Ling 5 ml IM DAILY PRN PRN Reason: NERVE BLOCK Albuterol Sulfate [Ventolin HFA] 2 puff INHALATION RT-Q6H PRN PRN Reason: Shortness Of Breath Fluticasone/Umeclidin/Vilanter [Trelegy Ellipta 100-62.5-25] 1 puff INHALATION RT-DAILY@0900 metFORMIN HCL [Glucophage XR] 750 mg PO DAILY@1500 Psyllium Husk 100% [Metamucil Packet] 6 gm PO DAILY@0900 Nitroglycerin Sl Tabs [Nitrostat] 0.4 mg SUBLINGUAL Q5M PRN PRN Reason: Chest Pain Furosemide [Lasix] 20 mg PO DAILY@0600 busPIRone HCl [Buspar] 10 mg PO TID@0600,1400,2200 Calc/Mag/Zinc 2 tab PO DAILY@0900 diazePAM [Valium] 2 mg PO TID@0500,1100,1700 #9 tab Changed HYDROcodone/APAP 10-325MG [Rudyard 10-325] 1 tab PO TID@0500,1300,2100 #9 tab Discontinued Sulfamethox-Tmp 800-160Mg [Bactrim DS 800-160 mg] 1 tab PO BID@0900,2100 Discharge Medication List Acetaminophen Tab [Tylenol] 650 mg PO Q4H PRN 08/19/18 [History] Atorvastatin [Lipitor] 20 mg PO HS@2200 08/19/18 [History] Mylanta Double Strength 10 ml PO Q4H PRN 08/19/18 [History] Pantoprazole [Protonix] 40 mg PO DAILY@0600 08/19/18 [History] Tamsulosin [Flomax] 0.4 mg PO HS@219908/19/18 [History] Ipratropium-Albuterol Nebulize [Duoneb 0.5 mg-3 mg/3 ml Soln] 3 ml INHALATION RT-Q4H PRN #1 01/13/19 [Rx] Albuterol Sulfate [Ventolin HFA] 2 puff INHALATION RT-Q6H PRN 05/08/21 [History] Apixaban [Eliquis] 5 mg PO BID@0900,2100 05/08/21 [History] Aspirin EC [Ecotrin Low Dose] 81 mg PO DAILY@0900 05/08/21 [History] Calc/Mag/Zinc 2 tab PO DAILY@0900 05/08/21 [History] Fluticasone/Umeclidin/Vilanter [Trelegy Ellipta 100-62.5-25] 1 puff INHALATION RT-DAILY@0900 05/08/21 [History] Furosemide [Lasix] 20 mg PO DAILY@0600 05/08/21 [History] Hydrocortisone Pr Cream [Proctosol-Hc 2.5%] 1 applic RECTAL BID 05/08/21 [History] Lactose-Reduced Food [Ensure Plus] 1 can PO BID@0900,1300 05/08/21 [History] Lidocaine 2% Ling 5 ml IM DAILY PRN 05/08/21 [History] Melatonin 15 mg PO HS@219905/08/21 [History] Montelukast [Singulair] 10 mg PO DAILY@0900 05/08/21 [History] Nitroglycerin Sl Tabs [Nitrostat] 0.4 mg SUBLINGUAL Q5M PRN 05/08/21 [History] Phenyleph/Mineral Oil/Petrolat [Preparation H Ointment] 1 applic RECTAL Q12H PRN 05/08/21 [History] Potassium Chloride [Klor-Con 10 ER] 20 meq PO DAILY@0900 05/08/21 [History] Psyllium Husk 100% [Metamucil Packet] 6 gm PO DAILY@0900 05/08/21 [History] Sennosides/Docusate Sodium [Senna Plus 8.6-50 mg Softgel] 2 cap PO DAILY@0900 05/08/21 [History] Topiramate [Topamax] 50 mg PO BID@0900,1700 05/08/21 [History] Trihexyphenidyl [Artane] 2 mg PO TID@0600,1400,2200 05/08/21 [History] acetaZOLAMIDE [Diamox] 250 mg PO DAILY@0900 05/08/21 [History] busPIRone HCl [Buspar] 10 mg PO TID@0600,1400,2200 05/08/21 [History] metFORMIN HCL [Glucophage XR] 750 mg PO DAILY@1500 05/08/21 [History] tiZANidine HCL [Zanaflex] 4 mg PO HS 05/08/21 [History] tiZANidine [Zanaflex] 2 mg PO Q6H PRN 05/08/21 [History] Cefepime [Maxipime] 2 gm IVPB Q8H #42 each 05/14/21 [Rx] Finasteride [Proscar] 5 mg PO DAILY tab 05/14/21 [Rx] HYDROcodone/APAP 10-325MG [Rudyard 10-325] 1 tab PO TID@0500,1300,2100 #9 tab 05/14/21 [Rx] INSULIN ASPART (NovoLOG) [NovoLOG (formulary)] 0 unit SQ ACHS ml 05/14/21 [Rx] diazePAM [Valium] 2 mg PO TID@0500,1100,1700 #9 tab 05/14/21 [Rx] metroNIDAZOLE [Flagyl] 500 mg PO Q8HR #42 tab 05/14/21 [Rx] predniSONE 0 mg PO DIRECTED #30 tab 05/14/21 [Rx] Follow up Appointment(s)/Referral(s): Lona Maradiaga MD [Primary Care Provider] - 1-2 days Discharge Disposition: TRANSFER TO SNF/ECF
[2021-05-14 12:09] LABS: Glucose,Whole Blood 153 mg/dL (75-99)
[2021-05-14 12:52] VITALS: BP 126/78; PULSE 65; RESP 21; TEMP 98
--- NOTE | 2021-05-14 13:03 | P.PN ---
Subjective Progress Note Date: 05/14/21 CHIEF COMPLAINT: Left buttocks abscess HISTORY OF PRESENT ILLNESS: Surgical service is following regards to patient's left buttocks abscess and stomach volvulus. Patient reports improvement in his left buttocks abscess. He is no longer having any drainage. He denies any abdominal pain. He is tolerating diet. Denies any nausea or vomiting. He is scheduled be discharged with IV antibiotics. Afebrile. PHYSICAL EXAM: VITAL SIGNS: Reviewed. GENERAL: Well-developed in no acute distress. HEENT: No sclera icterus. Extraocular movements grossly intact. Moist buccal mucosa. Head is atraumatic, normocephalic. ABDOMEN: Soft. Nondistended. Nontender. NEUROLOGIC: Alert and oriented. Cranial nerves II through XII grossly intact. Skin exam: Left buttocks abscess that goes into the perineum area. Decrease in size. No drainage noted. ASSESSMENT: 1. Stomach volvulus 2. Left buttocks abscess actively draining PLAN: -Recommend endoscopy regarding stomach volvulus when medically stable -No surgical intervention planned for left buttock abscess -Continue supportive care -Apply heat packs to left buttocks abscess -Continue antibiotics per ID -Patient can be discharged from surgical standpoint Physician Residence Life Director note has been reviewed by physician. Signing provider agrees with the documented findings, assessment, and plan of care. Objective - Vital Signs Vital signs: Vital Signs Temp 98 F 05/14/21 12:52 Pulse 65 05/14/21 12:52 Resp 21 05/14/21 12:52 BP 126/78 05/14/21 12:52 Pulse Ox 100 05/14/21 12:52 Intake & Output 05/13/21 05/14/21 05/14/21 18:59 06:59 18:59 Intake Total 1300 120 Output Total 1450 1000 Balance -150 -880 Intake: Intake, IV Titration 1000 Amount Cefepime 2 gm In Sodium 100 Chloride 0.9% 100 ml @ 25 mls/hr IVPB Q8H MATTHEW Rx#: [id number] Sodium Chloride 0.9% 1, 900 000 ml @ 75 mls/hr IV . [id number] MATTHEW Rx#:[id number] Oral 300 120 Output: Urine 1450 1000 Uretheral ([place]) 1450 1000 Other: Voiding Method Indwelling Catheter Indwelling Catheter Indwelling Catheter - Labs CBC & Chem 7: 05/11/21 05:38 10/11/21 05:55 Labs: Abnormal Lab Results - Last 24 Hours (Table) 05/13/21 05/13/21 05/14/21 Range/Units 17:26 20:21 05:55 Carbon Dioxide 36 H (22-30) mmol/L Glucose 140 H (74-99) mg/dL POC Glucose (mg/dL) 165 H 156 H (75-99) mg/dL 05/14/21 05/14/21 Range/Units 07:29 11:52 Carbon Dioxide (22-30) mmol/L Glucose (74-99) mg/dL POC Glucose (mg/dL) 123 H 153 H (75-99) mg/dL Microbiology - Last 24 Hours (Table) 05/08/21 14:55 Blood Culture - Preliminary Blood No Growth after 120 hours 05/11/21 11:00 Anaerobic Culture - Preliminary Buttock 05/11/21 11:00 Gram Stain - Final Buttock Wound Culture - Final Pseudomonas aeruginosa Proteus mirabilis
--- NOTE | 2021-05-14 14:23 | PN ---
PROGRESS NOTE DATE OF SERVICE: 05/14/2021 REASON FOR FOLLOWUP: Left gluteal abscess, cellulitis. INTERVAL HISTORY: The patient is afebrile. The patient is breathing comfortably. The patient denies having any chest pain or shortness of breath or cough. No abdominal pain or any worsening pain to the left gluteal area. PHYSICAL EXAMINATION: Blood pressure 126/78 with a pulse of 55, temperature 98. He is 100% on BiPAP. General description is a middle-aged male lying in bed in no distress. RESPIRATORY SYSTEM: Unlabored breathing. Decreased intensity of breath sounds. No wheeze. HEART: S1, S2. Regular rate and rhythm. ABDOMEN: Soft. No tenderness. LABS: BUN of 19, creatinine 0.69. DIAGNOSTIC IMPRESSION AND PLAN: Patient with a left gluteal abscess with spontaneous drainage, cellulitis, culture positive for Pseudomonas and Proteus. Plan is for cefepime 2 grams q.12 hours with oral Flagyl 500 q.8 for 2 weeks and close outpatient followup. Discussed with the admitting team working on discharge. MMODL / MARKELLN: [id number] /
== END 2021-05-14 14:51 | DRG 603 ==
LOC: EC 09:30 → 4SSUR 14:52 → 1SOBS 18:24 → 5NMEDONC 05-10 17:01
PROVIDERS: ADMIT Internal Medicine; ATTEND Internal Medicine
PROC: 05HD33Z Insertion of Infusion Device into Right Cephalic Vein, Percutaneous Approach (ICD-10-PCS; principal; 2021-05-14 23:10)
DX: L02.31 Cutaneous abscess of buttock (principal); I48.20 Chronic atrial fibrillation, unspecified; J96.11 Chronic respiratory failure with hypoxia; L03.315 Cellulitis of perineum; L03.317 Cellulitis of buttock; E78.5 Hyperlipidemia, unspecified; G89.29 Other chronic pain; E11.9 Type 2 diabetes mellitus without complications; Z20.822 Contact with and (suspected) exposure to COVID-19; F41.1 Generalized anxiety disorder; G20 Parkinson's disease; G43.909 Migraine, unspecified, not intractable, without status migrainosus; I10 Essential (primary) hypertension; J44.9 Chronic obstructive pulmonary disease, unspecified; K21.9 Gastro-esophageal reflux disease without esophagitis; K31.89 Other diseases of stomach and duodenum; K59.00 Constipation, unspecified; L02.32 Furuncle of buttock; N40.1 Benign prostatic hyperplasia with lower urinary tract symptoms; R33.8 Other retention of urine; L98.412 Non-pressure chronic ulcer of buttock with fat layer exposed; Z82.5 Family history of asthma and other chronic lower respiratory diseases; Z87.891 Personal history of nicotine dependence; Z99.81 Dependence on supplemental oxygen; Z82.49 Family history of ischemic heart disease and other diseases of the circulatory system; Z79.899 Other long term (current) drug therapy; Z79.84 Long term (current) use of oral hypoglycemic drugs; Z79.82 Long term (current) use of aspirin; Z79.51 Long term (current) use of inhaled steroids; Z79.01 Long term (current) use of anticoagulants
CPT/HCPCS: 36410; 36415; 74176; 74177; 76937; 80048; 80053; 80202; 82565; 83036; 83605; 85025; 85027; 87040; 87070; 87075; 87077; 87186; 87205; 87635; 94660; 94760; 96361; 96365; 96367; 96375; 99285